=== PATIENT | female | born 1935 | race Caucasian/White ===

== ENCOUNTER 2017-01-24 17:40 | Emergency (ER) | payer MEDICARE ==
[2017-01-24] MEDS ORDERED: Ondansetron INJ* 2 MG/ML VIAL IV ONE (19:26)
--- NOTE | 2017-01-24 19:26 | UC ---
Abdominal Pain Female HPI - HPI Summary HPI Summary: Vomiting with loose stools since yesterday. Last BM yesterday. Dry heaves this evening. - History of Current Complaint Chief Complaint: UCGeneralIllness Stated Complaint: VOMITING/DIARRHEA Time Seen by Provider: 01/24/17 19:18 Hx Obtained From: Patient Hx Last Menstrual Period: n/a ?: No Onset/Duration: Sudden Onset, Lasting Days - 1, Worse Since - with headache Severity Initially: Mild Pain Intensity: 0 Character: Not Applicable Aggravating Factor(s): Food Alleviating Factor(s): Nothing Associated Signs and Symptoms: Positive: Decreased Appetite, Nausea, Vomiting Allergies/Adverse Reactions: Allergies Allergy/AdvReac Type Severity Reaction Status Date / Time Cephalexin Allergy Unknown Verified 01/24/17 18:35 Reaction Details Sulfa Drugs Allergy Unknown Verified 01/24/17 18:35 Reaction Details PMH/Surg Hx/FS Hx/Imm Hx Previously Healthy: No Cardiovascular History: Hypertension Respiratory History: COPD GI/ History: Gastroesophageal Reflux, Diverticulitis Cancer History: Breast Cancer - Surgical History Surgical History: Yes Surgery Procedure, Year, and Place: Cholecystectomy. Appendectomy. Hysterectomy. Left Breast Lumpectomy and Lymphectomy - Family History Known Family History: Positive: Cardiac Disease, Hypertension, Diabetes - Social History Occupation: Retired Lives: Alone Alcohol Use: None Substance Use Type: None Smoking Status (MU): Never Smoked Tobacco - Immunization History Most Recent Influenza Vaccination: 01/2017 Review of Systems Constitutional: Fatigue Gastrointestinal: Vomiting, Diarrhea, Nausea Is Patient Immunocompromised?: No All Other Systems Reviewed And Are Negative: Yes Physical Exam Triage Information Reviewed: Yes Appearance: No Pain Distress, Well-Nourished, Ill-Appearing Vital Signs: Initial Vital Signs Temp 98 F 01/24/17 18:30 Pulse 102 01/24/17 18:30 Resp 22 01/24/17 18:30 BP 129/61 01/24/17 18:30 Pulse Ox 97 01/24/17 18:30 Vital Signs Reviewed: Yes Eyes: Positive: Conjunctiva Clear ENT: Positive: Pharynx normal - dry Mucus membranes, TMs normal Neck exam: Normal Respiratory Exam: Normal Cardiovascular Exam: Normal Abdominal Exam: Normal Musculoskeletal Exam: Normal Neurological Exam: Normal Psychological Exam: Normal Skin Exam: Normal Re-Evaluation - Re-Evaluation First Eval Re-Evaluation Time: 20:53 Change: Improved - feeling better. Headache is gone. Nausea is better. Abd Pain Female Course/Dx - Differential Dx/Diagnosis Differential Diagnosis: Appendicitis, Diverticulitis, Irritable Bowel Syndrome Provider Diagnoses: Acute gastroenteritis. Moderate dehydration. Discharge - Discharge Plan Condition: Stable Disposition: HOME Prescriptions: Ondansetron ODT TAB* [Zofran 4 MG Odt TAB*] 4 mg PO Q6H PRN #14 tab.odt PRN Reason: Nausea/Vomiting Patient Education Materials: Gastroenteritis (ED), Ondansetron (By mouth)
[2017-01-24] MEDS ORDERED: NS 0.9% 1000 ML* 1,000 ML IV SCH (19:30)
[2017-01-24] MEDS ORDERED: Ondansetron INJ* 2 MG/ML VIAL IM ONE (20:56)
[2017-01-24] MEDS ORDERED: Ondansetron ODT TAB* 4 MG PO ONE (20:58)
[2017-01-24 21:02] VITALS: BP 142/62
[2017-01-24] MEDS ORDERED: Ondansetron ODT TAB* 4 MG ONE (21:05)
== END 2017-01-24 21:20 | disposition home or self-care (01) ==
LOC: UCCORT 17:40
DX: K52.9 Noninfective gastroenteritis and colitis, unspecified (principal); E86.0 Dehydration; I10 Essential (primary) hypertension; J44.9 Chronic obstructive pulmonary disease, unspecified; K21.9 Gastro-esophageal reflux disease without esophagitis; K57.92 Diverticulitis of intestine, part unspecified, without perforation or abscess without bleeding; Z85.3 Personal history of malignant neoplasm of breast; Z90.49 Acquired absence of other specified parts of digestive tract; Z90.710 Acquired absence of both cervix and uterus; Z88.1 Allergy status to other antibiotic agents; Z88.2 Allergy status to sulfonamides
CPT/HCPCS: 96361; 96374; 99212; A9270-GY; G0463; J2405

== ENCOUNTER 2018-02-28 12:52 | Emergency (ER) | payer MEDICARE ==
--- NOTE | 2018-02-28 13:41 | UC ---
Dizzy HPI HPI Summary: The patient is an 82-year-old female that presents here with a 2 day history of not feeling right. She states she has felt weak. He states she has felt fatigued. She denies any vertigo. She denies any syncope or near syncope. He denies any chest pain or shortness of breath. She denies any palpitations. She states that she has felt warm at times. She states that she is a nervous person and her symptoms have made her feel shaky. She's had no nausea vomiting or diarrhea. There has been no weight change. Has no UTI symptoms. She is denying hurting anywhere. - History Of Current Complaint Chief Complaint: UCGeneralIllness Stated Complaint: SHAKEY,DIZZINESS Hx Obtained From: Patient Hx Last Menstrual Period: n/a Onset/Duration: Gradual Onset, Lasting Days Timing: Constant Severity Initially: Moderate Severity Currently: Moderate Pain Intensity: 0 Pain Scale Used: 0-10 Numeric Character: Weak Aggravating Factor(s): Nothing Alleviating Factor(s): Nothing Associated Signs And Symptoms: Negative: Nausea, Vomiting, Diaphoresis, Tinnitus , Chest Pain, SOB, Palpitations, Unsteady Gait, Visual Changes, Decreased Oral Intake, Change In Medication, Change In Diet, OTC Medications - Allergies/Home Medications Allergies/Adverse Reactions: Allergies Allergy/AdvReac Type Severity Reaction Status Date / Time cephalexin Allergy Unknown Verified 02/28/18 13:02 Reaction Details Sulfa (Sulfonamide Allergy Unknown Verified 02/28/18 13:02 Antibiotics) Reaction Details Home Medications: Home Medications Amlodipine Besylate [Norvasc] 5 mg PO DAILY 02/28/18 [History Confirmed 02/28/18 ] PMH/Surg Hx/FS Hx/Imm Hx Previously Healthy: Yes Endocrine History: Dyslipidemia Cardiovascular History: Hypertension - Surgical History Surgical History: Yes Surgery Procedure, Year, and Place: Cholecystectomy. Appendectomy. Hysterectomy. Left Breast Lumpectomy and Lymphectomy - Family History Known Family History: Positive: Cardiac Disease, Hypertension, Diabetes - Social History Alcohol Use: None Substance Use Type: None Smoking Status (MU): Never Smoked Tobacco - Immunization History Most Recent Influenza Vaccination: 01/2017 Review of Systems All Other Systems Reviewed And Are Negative: Yes Constitutional: Positive: Fatigue Skin: Positive: Negative Eyes: Positive: Negative ENT: Positive: Negative Respiratory: Positive: Negative Cardiovascular: Positive: Negative Gastrointestinal: Positive: Negative Genitourinary: Positive: Negative Motor: Positive: Negative Neurovascular: Positive: Negative Musculoskeletal: Positive: Negative Neurological: Positive: Negative Psychological: Positive: Negative Physical Exam Triage Information Reviewed: Yes Appearance: Well-Appearing, No Pain Distress, Well-Nourished Vital Signs: Initial Vital Signs Temp 98.8 F 02/28/18 13:04 Pulse 73 02/28/18 13:04 Resp 18 02/28/18 13:04 BP 155/75 02/28/18 13:04 Pulse Ox 98 02/28/18 13:04 Vital Signs Reviewed: Yes Eyes: Positive: Conjunctiva Clear ENT: Positive: TMs normal. Negative: Hearing grossly normal - slightly STEBBINS, Nasal congestion, Nasal drainage, Tonsillar swelling, Tonsillar exudate, Trismus , Muffled voice, Hoarse voice, Uvula midline Dental: Negative: Abscess @ Neck: Positive: Supple, Nontender, No Lymphadenopathy Respiratory: Positive: Lungs clear, Normal breath sounds, No respiratory distress, No accessory muscle use Cardiovascular: Positive: RRR, No Murmur Abdominal Exam: Normal Musculoskeletal: Positive: ROM Intact, No Edema Neurological: Positive: Alert Psychological Exam: Normal Skin Exam: Normal Diagnostics - Laboratory Diagnostic Studies Completed/Ordered: Glucose -84. UA ++leuks - EKG Cardiac Rate: NL Cardiac Rhythm: Sinus: Normal ST Segment: Normal Summary of EKG Findings: LVH Dizzy Course/Dx - Course Course Of Treatment: not orthostatic - Differential Dx/Diagnosis Provider Diagnoses: UTI. fatigue Discharge - Sign-Out/Discharge Documenting (check all that apply): Patient Departure All imaging exams completed and their final reports reviewed: No Studies - Discharge Plan Condition: Stable Disposition: HOME Patient Education Materials: Fatigue (ED), Urinary Tract Infection in Women (ED ) Referrals: Lucie Griffiths MD [Primary Care Provider] - 2 Days (if not better) - Billing Disposition and Condition Condition: STABLE Disposition: Home
[2018-02-28 14:32] VITALS: BP 148/57
== END 2018-02-28 15:13 | disposition home or self-care (01) ==
LOC: UCCORT 12:52
DX: N39.0 Urinary tract infection, site not specified (principal); R53.1 Weakness; I10 Essential (primary) hypertension; Z88.1 Allergy status to other antibiotic agents; Z88.2 Allergy status to sulfonamides; Z79.899 Other long term (current) drug therapy
CPT/HCPCS: 81003; 87077; 87086; 93005; 99212; G0463

== ENCOUNTER 2018-08-02 11:07 | Emergency (ER) | payer MEDICARE ==
--- OUTSIDE RECORDS SUMMARY | 2018-08-02 11:19 | XMS REPORT | Continuity of Care Document ---
:1935 External Reference #:[id number] Author Name Himanshu Allison M.D. 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 Active Onset: 09/25/2017 Hyperlipidemia Lucie Griffiths MD Active Onset: 09/25/2017 Mild intermittent asthma Lucie Griffiths MD Active Onset: 09/25/2017 Essential hypertension Lucie Griffiths MD Active Onset: 09/25/2017 Anxiety state Lucie Griffiths MD Active Onset: 09/25/2017 Essential tremor Lucie Griffiths MD Active Onset: 07/08/2018 Urinary tract infectious disease Himanshu Allison M.D. Active Family History Date Family Member(s) Observation Comments General Cancer General Heart Disease Father due to heart disease () Mother due to both parents () deeased Mother due to Colon Cancer () - age 73 Children 2 Siblings 7 First Brother due to Prostate Cancer () - early 60's Second Brother due to prostate cancer () - early 60's First Sister due to 1 sister alive () First Sister Lung Cancer Social History Type Date Description Comments Sex Unknown Lives With Alone Diet Healthy, Well Balanced Occupation Retired ADL's/IADL's Independent with all ADL's Tobacco Use Start: Unknown Never Smoked Cigarettes ETOH Use Denies alcohol use Tobacco Use Start: Unknown Patient denies history of smoking Recreational Drug Use Never Used Drugs Smoking Status Reviewed: 07/22/18 Patient denies history of smoking Allergies, Adverse Reactions, Alerts Date Description Reaction Status Severity Comments 07/19/2014 Sulfa Drugs Active 08/04/2014 Cephalexin Active 07/19/2014 NKDA Inactive Medications Medication Date Status Form Strength Qnty SIG Indications Ordering Provider Ampicillin 07/23/19 Active Capsules 500mg 10cap 1 by mouth Keegan, 19 s twice a , M.DJuan R Propranolol HCL 06/26/19 Active Tablets 10mg 60tab take 1 G25.0 Aye, 19 s tablet MD Lucie twice a day Sertraline HCL 03/17/20 Active Tablets 25mg 90tab 1 by mouth F41.9 Aye, 18 s daily. MD Lucie Proair HFA 03/27/20 Active Aerosol 108(90Bas 25.5g 1-2 Aye, 17 e) m inhalation MD Lucie mcg/Act s every 4 hours as needed Nebulizer 08/14/19 Active Kit 1unit nebulizer J45.41 Aye, Compressor/Dual 17 s every 6 MD Lucie filter/7' hours as Tubing/Aerosol needed for T/Mthpiece shortness of breath Acetaminophen 10/23/19 Active Tablets 500mg 180ta 2 by mouth Aye, Extra Strength 16 bs every 6 MD Lucie hours three times a day Pravastatin 10/23/19 Active Tablets 40mg 90tab 1 by mouth Gagen, Sodium 16 s every Adenike evening e, MS, 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, CNM Losartan 10/23/19 Active Tablets 100mg 90tab take 1 Gagen, Potassium 16 s tablet by Adenike mouth once e, MS, daily 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, CNM Vitamin D-3 Active Capsules 1000Unit 2 tabs qd Unknown 00 Asmanex Active Aerosol 220mcg/In 3unit 1 puff Aye, Twisthaler 60 00 h s twice MD Lucie Metered Doses daily Amlodipine Active Tablets 5mg 90tab 1 by mouth Gagen, Besylate 00 s every day Adenike e, MS, 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 19 day Levofloxacin 06/08/19 Hx Tablets 250mg 3tabs Take one Aye, 19 - tablet a MD Lucie 06/08/19 day 19 Citalopram 03/17/20 Hx Tablets 10mg 30tab 1 by mouth F41.9 Aye, Hydrobromide 18 - s every day MD Lucie 03/24/20 18 Amoxicillin 03/03/20 Hx Tablets 500mg 14tab 1 po bid N39.0 Aye, 18 - s MD Lucie 03/10/20 18 Pulmicort 02/02/20 Hx Aerosol 180mcg/Ac 1unit Use 2 Gagen, Flexhaler 18 - t s puffs Adenike 02/02/20 inhaled e, MS, 18 twice a 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, day CNM Fluoxetine HCL 01/29/20 Hx Tablets 20mg 90tab 1 tab by Aye, (PMDD) 18 - s mouth MD Lucie 03/17/20 every 18 night Fluoxetine HCL 10/13/19 Hx Capsules 20mg 90cap 1 tab by Aye, 18 - s mouth MD Lucie 01/29/20 every day 18 Fluoxetine HCL 09/26/19 Hx Capsules 40mg 90cap 1 by mouth Aye, 18 - s every day MD Lucie 10/13/19 18 Triamcinolone 01/15/20 Hx Cream 0.5% 30gm apply to Aye, Acetonide 17 - affected MD Lucie Unknown area under her breasts and groin area twice daily Fluconazole 01/07/20 Hx Tablets 150mg 2tabs 1 by mouth B37.3 Smiley, 17 - daily x 1 Eknji, Unknown day, M.D. repeat on second day if symptoms have not improved Lidocaine 01/07/20 Hx Cream 3-0.5% 21gm apply K64.9 Smiley, HCL/Hydrocortis 17 - twice a Kenji, one Acetate 01/07/20 day to M.D. 17 hemorrhoid s Hydrocortisone 01/07/20 Hx Cream 1% 60Gra Apply to Smiley, Acetate 17 - ms hemorrhoid Kenji, 09/26/19 s bid prn M.D. 18 Tizanidine HCL 11/22/19 Hx Capsules 2mg 30cap 1 cap by Aye, 17 - s mouth at MD Lucie Unknown bedtime for pain as needed Albuterol 08/15/19 Hx Nebulizer (2.5mg/3M 75ml use with Aye, Sulfate 17 - L) 0.083% nebulizer MD Lucie 06/04/19 every 6 19 hours as needed for shortness of breath Prednisone 08/14/19 Hx Tablets 20mg 10tab 2 tabs (40 Aye, 17 - s mg) daily MD Lucie Unknown for 5 days for shortness of breath/whe ezing Amoxicillin 08/05/19 Hx Capsules 500mg 21cap 1 by mouth J06.9 Smiley, 17 - s three Kenji, Unknown times a M.D. day x 7 days Acidophilus 08/05/19 Hx Tablets 90tab 1 by mouth J06.9 Smiley, Probiotic 17 - s every day Kenji, Unknown x 7 days M.D. Robitussin 08/05/19 Hx Liquid 20-400mg/ 237ml as J06.9 Smiley, Cough & Chest 17 - 20ML directed Kenji, Congestion DM Unknown M.D. Adult Saline Nasal 08/05/19 Hx Solution 0.65% 135ml 2 sprays J06.9 Smiley, [place] 17 - every 2 Kenji, Unknown hours as M.D. needed Diclofenac 06/19/19 Hx Gel 1% 100gm 2 g Aye, Sodium 17 - topical on MD Lucie Unknown back of neck twice a day as needed Clobetasol 06/06/19 Hx Cream 0.05% 90gm apply to Aye, Propionate E 17 - affected MD Lucie 09/26/19 area under 18 breasts and groin twice daily Famotidine 01/23/20 Hx Tablets 20mg 60tab take 1 Aye, 16 - s tablet by MD Lucie 01/23/20 mouth 16 twice a day Triamcinolone 01/23/20 Hx Cream 0.5% 30gm apply to Aye, Acetonide 16 - affected MD Lucie Unknown area under her breasts and groin area twice daily Nystatin 01/23/20 Hx Powder [id number] 60gm apply B35.9 Aye, 16 - t/GM powder to MD Lucie 09/26/19 under the 18 breast and thighs twice a day until rash resolves Cipro 01/23/20 Hx Tablets 500mg 6tabs 1 tab by Aye, 16 - mouth MD Lucie Unknown twice daily for 3 days Metoprolol 10/23/19 Hx Tablets ER 25mg 90tab 1 by mouth Aye, Succinate ER 16 - 24HR s every day MD Lucie 06/04/19 19 Hydrocodone-Wil 08/01/19 Hx Tablets 5-325mg 56tab 1 by mouth [place], taminophen 15 - s every 4 Rodriguez, 10/23/19 hours as M.D. 16 needed pain Naproxen 08/01/19 Hx Tablets 375mg 60tab 1 by mouth [place], 15 - s twice a Rodriguez, 10/23/19 day with M.D. 16 food Vicodin 07/20/19 Hx Tablets 5-300mg 14tab 1 every 6 Neftaly, 15 - s hours Wong Gomez, 08/01/19 DO 15 Triamcinolone Hx Ointment 0.5% Unknown Acetonide - 10/23/19 16 Ketoconazole Hx Cream 2% Unknown - 10/23/19 16 Albuterol Hx Nebulizer (2.5mg/3M Unknown Sulfate 00 - L) 0.083% Unknown Losartan Hx Tablets 100-12.5m Unknown Potassium/[place] 00 - g chlorothiazide 10/23/19 16 Ventolin HFA Hx Aerosol 108(90Bas 24gm 1-2 puffs Aye 00 - e) inhaled MD Lucie 03/27/20 mcg/Act every 17 4-6hrs as needed Alendronate Hx Tablets 70mg 12tab 1 by mouth Aye, Sodium 00 - s every week MD Lucie 06/26/19 19 Anastrozole Hx Tablets 1mg Unknown 10/23/19 16 Simvastatin Hx Tablets 40mg Unknown 10/23/19 16 Metronidazole Hx Tablets 500mg take 1 Unknown 00 - tablet by Unknown mouth three times a day Ciprofloxacin Hx Tablets 500mg take 1 Unknown HCL 00 - tablet by Unknown mouth twice a day Fluoxetine HCL Hx Capsules 20mg 90cap 1 by mouth Aye, 00 - s every day MD Lucie 09/26/19 18 Nitrofurantoin Hx Capsules 100mg take 1 Unknown Monohydrate/Mac 00 - capsule by rocrystals 06/04/19 mouth 19 twice a day Nitrofurantoin Hx Capsules 100mg take 1 Unknown Monohydrate/Mac 00 - capsule by rocrystals 03/17/20 mouth 18 twice a day Amoxicillin Hx Capsules 500mg take 1 Unknown 00 - capsule by 06/26/19 mouth 19 every 8 hours Immunizations CPT Code Status Date Vaccine Reaction Lot # [id number] Given 01/29/2018 Influenza High Dose [id number] Given 01/06/2017 Influenza Virus Vaccine Quadrivalent Iiv4 none [id number] Split Preser Free Id [id number] Given 01/23/2016 Influenza Vaccine (Fluzone) Age 3 And [id number] Older Vital Signs Date Vital Result Comment 07/22/2018 12:30pm BP Systolic 128 mmHg BP Diastolic 80 mmHg Body Temperature 97.7 F Heart Rate 62 /min Respiratory Rate 16 /min O2 % BldC Oximetry 9 % Pain Level 0 07/08/2018 1:32pm BP Systolic 132 mmHg BP Diastolic 64 mmHg Body Temperature 98.2 F Heart Rate 62 /min Respiratory Rate 16 /min Height 60.5 inches 5'0.50" Weight 179.00 lb BMI (Body Mass Index) 34.4 kg/m2 BSA (Body Surface Area) 1.79 m2 [place] body weight in kilograms 47 kg O2 % BldC Oximetry 97 % Pain Level 0 06/25/2018 10:57am BP Systolic Sitting Right Arm 140 mmHg BP Diastolic Sitting Right Arm 62 mmHg Body Temperature 98.2 F oral Heart Rate 81 /min reg Respiratory Rate 18 /min Height 60.5 inches 5'0.50" Weight 180.00 lb BMI (Body Mass Index) 34.6 kg/m2 BSA (Body Surface Area) 1.80 m2 [place] body weight in kilograms 47 kg O2 % BldC Oximetry 96 % ra 06/04/2018 2:59pm BP Systolic Sitting Right Arm 130 mmHg BP Diastolic Sitting Right Arm 80 mmHg BP Systolic Sitting Left Arm 144 mmHg manual BP Diastolic Sitting Left Arm 74 mmHg manual BP Systolic Lying Down Resting Right Arm 150 mmHg manual BP Diastolic Lying Down Resting Right Arm 78 mmHg manual BP Systolic Standing Resting Right Arm 134 mmHg left manual BP Diastolic Standing Resting Right Arm 76 mmHg left manual Body Temperature 98.9 F Heart Rate 80 /min Respiratory Rate 24 /min Height 60.5 inches 5'0.50" Weight 179.00 lb BMI (Body Mass Index) 34.4 kg/m2 BSA (Body Surface Area) 1.79 m2 [place] body weight in kilograms 47 kg O2 % BldC Oximetry 97 % ra 04/14/2018 11:00am BP Systolic Sitting Right Arm 138 mmHg BP Diastolic Sitting Right Arm 70 mmHg Body Temperature 97.9 F Heart Rate 70 /min Respiratory Rate 18 /min Height 60.5 inches 5'0.50" Weight 188.00 lb BMI (Body Mass Index) 36.1 kg/m2 BSA (Body Surface Area) 1.83 m2 [place] body weight in kilograms 47 kg 03/17/2018 10:35am BP Systolic Sitting Right Arm 151 mmHg BP Diastolic Sitting Right Arm 81 mmHg Body Temperature 98.2 F Heart Rate 80 /min Height 60.5 inches 5'0.50" Weight 185.00 lb BMI (Body Mass Index) 35.5 kg/m2 BSA (Body Surface Area) 1.82 m2 [place] body weight in kilograms 47 kg O2 % BldC Oximetry 98 % 03/12/2018 1:40pm BP Systolic Sitting Right Arm 118 mmHg BP Diastolic Sitting Right Arm 60 mmHg Body Temperature 99.8 F Heart Rate 71 /min reg Respiratory Rate 24 /min Height 60.5 inches 5'0.50" Weight 187.00 lb BMI (Body Mass Index) 35.9 kg/m2 BSA (Body Surface Area) 1.83 m2 [place] body weight in kilograms 47 kg O2 % BldC Oximetry 96 % ra 03/03/2018 1:51pm BP Systolic Sitting Right Arm 132 mmHg BP Diastolic Sitting Right Arm 70 mmHg Body Temperature 98.1 F Heart Rate 64 /min reg Respiratory Rate 18 /min Height 60.5 inches 5'0.50" Weight 187.00 lb BMI (Body Mass Index) 35.9 kg/m2 BSA (Body Surface Area) 1.83 m2 [place] body weight in kilograms 47 kg O2 % BldC Oximetry 97 % ra 01/28/2018 10:50am BP Systolic 140 mmHg recheck 137/65 BP Diastolic 53 mmHg recheck 137/65 Body Temperature 96.8 F Heart Rate 71 /min Respiratory Rate 18 /min Height 60.5 inches 5'0.50" Weight 192.38 lb BMI (Body Mass Index) 36.9 kg/m2 BSA (Body Surface Area) 1.85 m2 [place] body weight in kilograms 47 kg O2 % BldC Oximetry 97 % 11/06/2017 11:39am BP Systolic Sitting Right Arm 145 mmHg Zelda 127/74 BP Diastolic Sitting Right Arm 73 mmHg Zelda 127/74 Body Temperature 97.3 F Heart Rate 64 /min Respiratory Rate 24 /min Height 60.5 inches 5'0.50" Weight 193.00 lb BMI (Body Mass Index) 37.1 kg/m2 BSA (Body Surface Area) 1.85 m2 [place] body weight in kilograms 47 kg O2 % BldC Oximetry 96 % 09/25/2017 11:20am BP Systolic 122 mmHg BP Diastolic 80 mmHg Body Temperature 99.2 F Heart Rate 81 /min Respiratory Rate 20 /min Height 60.5 inches 5'0.50" Weight 193.25 lb BMI (Body Mass Index) 37.1 kg/m2 BSA (Body Surface Area) 1.85 m2 [place] body weight in kilograms 47 kg O2 % BldC Oximetry 95 % 03/27/2017 11:23am BP Systolic 159 mmHg recheck 138/75 BP Diastolic 79 mmHg recheck 138/75 Heart Rate 90 /min Respiratory Rate 14 /min Height 60.5 inches 5'0.50" Weight 191.25 lb BMI (Body Mass Index) 36.7 kg/m2 BSA (Body Surface Area) 1.84 m2 [place] body weight in kilograms 47 kg O2 % BldC Oximetry 97 % 03/17/2017 1:52pm BP Systolic 157 mmHg BP Diastolic 73 mmHg Body Temperature 99.1 F Heart Rate 77 /min Respiratory Rate 14 /min Height 60.5 inches 5'0.50" [place] body weight in kilograms 47 kg O2 % BldC Oximetry 97 % 01/22/2017 11:00am BP Systolic Sitting Right Arm 144 mmHg BP Diastolic Sitting Right Arm 74 mmHg Body Temperature 99.6 F Heart Rate 84 /min Respiratory Rate 16 /min Height 60.5 inches 5'0.50" Weight 199.00 lb BMI (Body Mass Index) 38.2 kg/m2 BSA (Body Surface Area) 1.87 m2 [place] body weight in kilograms 47 kg 01/06/2017 12:52pm BP Systolic 139 mmHg BP Diastolic 71 mmHg Heart Rate 79 /min Respiratory Rate 18 /min Height 60.5 inches 5'0.50" Weight 207.38 lb BMI (Body Mass Index) 39.8 kg/m2 BSA (Body Surface Area) 1.91 m2 [place] body weight in kilograms 47 kg O2 % BldC Oximetry 96 % 11/21/2016 10:29am BP Systolic Sitting Left Arm 152 mmHg BP Diastolic Sitting Left Arm 70 mmHg Heart Rate 71 /min Respiratory Rate 20 /min Height 60.5 inches 5'0.50" Weight 203.12 lb BMI (Body Mass Index) 39.0 kg/m2 BSA (Body Surface Area) 1.89 m2 [place] body weight in kilograms 47 kg 08/13/2016 10:53am BP Systolic 133 mmHg BP Diastolic 72 mmHg Body Temperature 97.1 F Heart Rate 82 /min Height 60.5 inches 5'0.50" Weight 204.00 lb BMI (Body Mass Index) 39.2 kg/m2 BSA (Body Surface Area) 1.89 m2 O2 % BldC Oximetry 99 % 08/04/2016 1:40pm BP Systolic 118 mmHg BP Diastolic 78 mmHg Body Temperature 99.0 F Heart Rate 78 /min Height 60.5 inches 5'0.50" Weight 201.00 lb BMI (Body Mass Index) 38.6 kg/m2 BSA (Body Surface Area) 1.88 m2 O2 % BldC Oximetry 96 % 06/18/2016 11:19am BP Systolic 150 mmHg BP Diastolic 72 mmHg Heart Rate 72 /min Height 60.5 inches 5'0.50" Weight 203.00 lb BMI (Body Mass Index) 39.0 kg/m2 BSA (Body Surface Area) 1.89 m2 O2 % BldC Oximetry 96 % 01/23/2016 11:26am BP Systolic Sitting Right Arm 134 mmHg BP Diastolic Sitting Right Arm 76 mmHg Heart Rate 68 /min Height 60.5 inches 5'0.50" Weight 207.38 lb BMI (Body Mass Index) 39.8 kg/m2 BSA (Body Surface Area) 1.91 m2 O2 % BldC Oximetry 98 % 10/23/2015 11:02am BP Systolic 138 mmHg BP Diastolic 76 mmHg Heart Rate 72 /min Height 60.5 inches 5'0.50" Weight 208.00 lb BMI (Body Mass Index) 39.9 kg/m2 BSA (Body Surface Area) 1.91 m2 O2 % BldC Oximetry 98 % 07/19/2014 2:51pm BP Systolic Sitting Right Arm 145 mmHg BP Diastolic Sitting Right Arm 78 mmHg Heart Rate 67 /min Height 60.5 inches 5'0.50" Weight 206.00 lb BMI (Body Mass Index) 39.6 kg/m2 BSA (Body Surface Area) 1.90 m2 Results Test Date Facility Test Result H/L Range Note Urine Culture 07/22/2018 [facility] Urine ESCHERICHIA COLI Abnormal [address] [place] [address] [phone] Quantity 10,000 - 50,000 <SEE NOTE> 2 Urine Culture STREP. AGALACTIA <SEE NOTE> Abnormal 3 Quantity 10,000 - 50,000 <SEE NOTE> 4 Recommended Therapy: PENICILLIN OR AM <SEE NOTE> 5 Escherichia Coli 07/22/2018 [facility] Nitrofurantoin <=16 [address] [place] [address] [phone] Trimethoprim/Sulfamethoxazole >=320 R Ampicillin 4 S Cefazolin <=4 S Ampicillin/Sulbactam <=2 S Ciprofloxacin >=4 R Piperacillin/Tazobactam <=4 S Ceftazidime <=1 S Ceftriaxone <=1 S Cefepime <=1 S Levofloxacin >=8 R Imipenem <=0.25 S Gentamicin <=1 S Tobramycin <=1 S Strep. Agalactiae (Beta GRP 07/22/2018 [facility] Penicillin G <=0.12 S B) [address] [place] [address] [phone] Tetracycline >=16 R Ampicillin <=0.25 S Moxifloxacin 0.5 S Levofloxacin 1 S Vancomycin <=0.5 S Urine Culture 07/08/2018 [facility] Urine Culture STREP. Abnormal 6 [address] [place]ACT[place] <[place] [address] NOTE> [phone] Quantity 50,000 - 100,000 <SEE NOTE> 7 Recommended Therapy: PENICILLIN OR AM <SEE NOTE> 8 [id number] 07/08/2018 [facility] Penicillin G <=0.12 [address] [place], [place] [id number] [phone] Tetracycline >=16 R Ampicillin <=0.25 S Moxifloxacin 0.5 S Levofloxacin 0.5 S Vancomycin <=0.5 S Urine Dipstick 07/08/2018 [facility] Ua Color Yellow Yellow Ua Clarity Clear Clear Ua Leuko 500 High Negative Ua Nitrite Negative Negative Ua Urobilinogen 0.2 0.2 - 1.0 E.U./dL Ua Protein Negative Negative Ua PH 6.0 Low 6.5-7.5 Ua Blood Negative Negative Ua Specific [place] 1.015 1.010-1.030 Ua Ketones Negative Negative Ua Bilirubin Negative Negative Ua Glucose Negative Negative Ua RFX Micro & Culture 06/25/2018 [facility] Urine Color YELLOW Yellow 9 [address] [place] [address] [phone] Urine Clarity CLEAR Clear Urine Glucose - Dipstick NEGATIVE mg/dL Negative Urine Bilirubin - Dipstick NEGATIVE Negative Urine Ketone NEGATIVE mg/dL Negative Urine Specific [place] <=1.005 Low 1.010-1.030 Urine Blood NEGATIVE Negative Urine PH 6.5 N 6.5-7.5 Urine Protein - Dipstick NEGATIVE mg/dL Negative Urine Urobilinogen - Dipstick 0.2 E.U./dL N 0.2-1.0 Urine Nitrite - Dipstick NEGATIVE Negative Urine Leuk Esterase LARGE Abnormal Negative Urine RBC NONE SEEN rbc/hpf 0-2 Urine WBC 2-5 wbc/hpf 0-7 Urine Epithelial Cells FEW /lpf None Seen Urine Bacteria FEW None Seen Source: URINE, CLEAN CAT <SEE NOTE> 10 Urine Dipstick 06/25/2018 [facility] Ua Color yellow Yellow Ua Clarity clear Clear Ua Leuko 3+ High Negative Ua Nitrite negative Negative Ua Urobilinogen negative Low 0.2 - 1.0 E.U./dL Ua Protein negative Negative Ua PH 6.5 6.5-7.5 Ua Blood negative Negative Ua Specific [place] 1.010 1.010-1.030 Ua Ketones negative Negative Ua Bilirubin negative Negative Ua Glucose negative Negative Co2 SerPl-sCnc 06/18/2018 N2N/CCD Import Co2 SerPl-sCnc 25 21-32 Serum or plasma 06/18/2018 N2N/CCD Import Serum or plasma 7 Low 8-16 anion gap anion gap Serum or plasma 06/18/2018 N2N/CCD Import Serum or plasma 8.8 8.5-10.1 calcium measurement calcium measurement (mass/volume) (mass/volume) Serum or plasma 06/18/2018 N2N/CCD Import Serum or plasma 7.5 6.4-8.2 protein measurement protein measurement (mass/volume) (mass/volume) Serum or plasma 06/18/2018 N2N/CCD Import Serum or plasma 3.6 3.4-5.0 albumin measurement albumin measurement (mass/volume) (mass/volume) Serum globulin 06/18/2018 N2N/CCD Import Serum globulin 3.9 1.9-4.3 measurement by measurement by calculation (mass/vo calculation (mass/volume) Serum or plasma 06/18/2018 N2N/CCD Import Serum or plasma 0.9 albumin/globulin albumin/globulin mass ratio mass ratio Serum or plasma 06/18/2018 N2N/CCD Import Serum or plasma 0.6 0.2-1.0 total bilirubin total bilirubin measurement (mass/ measurement (mass/volume) Serum or plasma 06/18/2018 N2N/CCD Import Serum or plasma 14 Low 15-37 aspartate aspartate aminotransferase aminotransferase measure measurement (enzymatic activity/volume) Serum or plasma 06/18/2018 N2N/CCD Import Serum or plasma 17 12-78 alanine alanine aminotransferase aminotransferase measureme measurement (enzymatic activity/volume) Serum or plasma 06/18/2018 N2N/CCD Import Serum or plasma 76 45-117 alkaline phosphatase alkaline measurement ( phosphatase measurement (enzymatic activity/volume) Serum or plasma 06/18/2018 N2N/CCD Import Serum or plasma <0.015 troponin i.cardiac troponin i.cardiac measurement (ma measurement (mass/volume) Ua RFX Micro & 06/18/2018 [facility] Urine Color YELLOW Yellow 11 Culture II [address] [place] [address] [phone] Urine Clarity CLEAR Clear Urine Glucose - Dipstick NEGATIVE mg/dL Negative Urine Bilirubin - Dipstick NEGATIVE Negative Urine Ketone NEGATIVE mg/dL Negative Urine Specific [place] 1.010 N 1.010-1.030 Urine Blood NEGATIVE Negative Urine PH 6.0 Low 6.5-7.5 Urine Protein - Dipstick NEGATIVE mg/dL Negative Urine Urobilinogen - Dipstick 0.2 E.U./dL N 0.2-1.0 Urine Nitrite - Dipstick NEGATIVE Negative Urine Leuk Esterase NEGATIVE Negative Source: URINE, CLEAN CAT <SEE NOTE> 12 Urine color 06/18/2018 N2N/CCD Import Urine color Yellow Yellow determination determination Urine appearance 06/18/2018 N2N/CCD Import Urine appearance Clear Clear determination determination Urine glucose 06/18/2018 N2N/CCD Import Urine glucose Negative Negative measurement by measurement by automated test automated test strip strip (mass/volume) Urine total 06/18/2018 N2N/CCD Import Urine total Negative Negative bilirubin bilirubin detection by detection by automated test automated test strip Urine ketones 06/18/2018 N2N/CCD Import Urine ketones Negative Negative measurement by measurement by automated test automated test strip strip (mass/volume) Specific gravity 06/18/2018 N2N/CCD Import Specific gravity 1.010 1.010- 1.030 of Urine by of Urine by Automated test Automated test strip strip Urine hemoglobin 06/18/2018 N2N/CCD Import Urine hemoglobin Negative Negative detection by detection by automated test automated test strip strip Urine pH 06/18/2018 N2N/CCD Import Urine pH 6.0 Low 6.5-7.5 measurement by measurement by automated test automated test strip strip Urine protein 06/18/2018 N2N/CCD Import Urine protein Negative Negative measurement by measurement by automated test automated test strip strip (mass/volume) Urine 06/18/2018 N2N/CCD Import Urine 0.2 0.2-1.0 urobilinogen urobilinogen measurement measurement (units/volume) by (units/volume) by t test strip Urine nitrite 06/18/2018 N2N/CCD Import Urine nitrite Negative Negative detection by detection by automated test automated test strip strip Urine leukocyte 06/18/2018 N2N/CCD Import Urine leukocyte Negative Negative esterase esterase detection by detection by automated te automated test strip Automated blood 06/18/2018 N2N/CCD Import Automated blood 13.0 High 3.1- 10.7 leukocyte count leukocyte count (number/volume) (number/volume) Blood 06/18/2018 N2N/CCD Import Blood 4.77 3.90-5.40 erythrocytes erythrocytes automated count automated count (number/volume) (number/volume) Blood hemoglobin 06/18/2018 N2N/CCD Import Blood hemoglobin 13.3 11.6- 15.8 measurement measurement (mass/volume) (mass/volume) Hct VFr Bld Auto 06/18/2018 N2N/CCD Import Hct VFr Bld Auto 41.0 36.0- 46.1 Automated 06/18/2018 N2N/CCD Import Automated 86.0 80.9-99.0 erythrocyte mean erythrocyte mean corpuscular corpuscular volume (MCV volume (MCV) measurement Automated 06/18/2018 N2N/CCD Import Automated 27.9 25.9-32.7 erythrocyte mean erythrocyte mean corpuscular corpuscular hemoglobin hemoglobin (mass per erythrocyte) Automated 06/18/2018 N2N/CCD Import Automated 32.4 30.8-34.3 erythrocyte mean erythrocyte mean corpuscular corpuscular hemoglobin hemoglobin concentration measurement (mass/volume) Automated blood 06/18/2018 N2N/CCD Import Automated blood 330 155-360 platelet count platelet count Automated 06/18/2018 N2N/CCD Import Automated 44.4 36-47 erythrocyte erythrocyte distribution distribution width width Automated 06/18/2018 N2N/CCD Import Automated 14.6 High 11.7-14.4 erythrocyte erythrocyte distribution distribution width ratio width ratio Automated blood 06/18/2018 N2N/CCD Import Automated blood 9.7 8.9-12.4 platelet mean platelet mean volume volume measurement measurement Automated blood 06/18/2018 N2N/CCD Import Automated blood 74.6 High 40.4- 72.8 neutrophils/100 neutrophils/100 leukocytes leukocytes Automated blood 06/18/2018 N2N/CCD Import Automated blood 15.6 Low 20.0- 42.0 lymphocytes/100 lymphocytes/100 leukocytes leukocytes Automated 06/18/2018 N2N/CCD Import Automated 8.9 4.3-13.2 monocyte % monocyte % Automated 06/18/2018 N2N/CCD Import Automated 0.5 0.0-6.6 eosinophil % eosinophil % Automated 06/18/2018 N2N/CCD Import Automated 0.4 0.0-1.1 basophil % basophil % Serum or plasma 06/18/2018 N2N/CCD Import Serum or plasma 101 98-107 chloride chloride measurement measurement Serum or plasma 06/18/2018 N2N/CCD Import Serum or plasma 3.8 3.5-5.1 potassium potassium measurement measurement Sodium SerPl-sCnc 06/18/2018 N2N/CCD Import Sodium SerPl-sCnc 133 Low 136 -145 Serum or plasma 06/18/2018 N2N/CCD Import Serum or plasma 11.1 urea urea nitrogen/creatini nitrogen/creatini ne mass rati ne mass ratio GFR/Bsa 06/18/2018 N2N/CCD Import GFR/Bsa >60 >60 pred.black SerPl pred.black SerPl MDRD-ArVRat MDRD-ArVRat Estimated 06/18/2018 N2N/CCD Import Estimated >60 >60 glomerular glomerular filtration rate filtration rate (GFR) non-Afr (GFR) non- Serum or plasma 06/18/2018 N2N/CCD Import Serum or plasma 0.9 0.6-1.3 creatinine creatinine measurement measurement (mass/volum (mass/volume) Absolute 06/18/2018 N2N/CCD Import Absolute 9.67 High 1.8-7.0 neutrophil count neutrophil count Automated blood 06/18/2018 N2N/CCD Import Automated blood 2.02 1.0-4.0 lymphocyte count lymphocyte count (number/volume) (number/volume) Blood monocytes 06/18/2018 N2N/CCD Import Blood monocytes 1.16 High 0.3- 0.9 automated count automated count (number/volume) (number/volume) Automated blood 06/18/2018 N2N/CCD Import Automated blood 0.07 0.0-0.5 eosinophil count eosinophil count Automated blood 06/18/2018 N2N/CCD Import Automated blood 0.05 0.0-0.1 basophil count basophil count (number/volume) (number/volume) Serum or plasma 06/18/2018 N2N/CCD Import Serum or plasma 10 7-18 urea nitrogen urea nitrogen measurement measurement (mass/vo (mass/volume) Serum or plasma 06/18/2018 N2N/CCD Import Serum or plasma 95 74-106 glucose glucose measurement measurement (mass/volume) (mass/volume) Unloinc 06/18/2018 N2N/CCD Import Unloin . Comprehensive 06/03/2018 [facility] Glucose 111 mg/dL High 74-106 13 Metabolic Panel [address] [place] [address] [phone] BUN 15 mg/dL N 7-18 Creatinine 1.1 mg/dL N 0.6-1.3 Glom Filtration Rate, Estimate 51 mL/min >60 If >60 mL/min >60 14 BUN/Creat 13.6 ratio Sodium 138 mmol/L N 136-145 Potassium 4.1 mmol/L N 3.5-5.1 Chloride 104 mmol/L N 98-107 Carbon Dioxide 26 mmol/L N 21-32 Anion Gap 8 mEq/L N 8-16 Calcium 8.9 mg/dL N 8.5-10.1 Total Protein 7.3 g/dL N 6.4-8.2 Albumin 3.5 g/dL N 3.4-5.0 Globulin 3.8 g/dL N 1.9-4.3 Alb/Glob 0.9 ratio Bilirubin,Total 0.4 mg/dL N 0.2-1.0 Sgot/Ast 12 U/L Low 15-37 15 SGPT/Alt 16 U/L N 12-78 Alkaline Phosphatase 82 U/L N 45-117 CBC W/Automated 06/03/2018 [facility] White Blood 11.7 K/uL High 3.1-10.[address] [place] [address] [phone] Red Blood Count 4.50 M/uL N 3.90-5.40 Hemoglobin 12.4 gm/dL N 11.6-15.8 Hematocrit 38.8 % N 36.0-46.1 Mean Cell Volume 86.2 fl N 80.9-99.0 Mean Corpuscular HGB 27.6 pg N 25.9-32.7 Mean Corpuscular HGB Conc 32.0 g/dL N 30.8-34.3 Platelet Count 332 K/uL N 155-360 Red Cell Distri Width SD 44.8 fl N 36-47 Red Cell Distri Width %CV 14.5 % High 11.7-14.4 Mean Platelet Volume 10.2 fL N 8.9-12.4 Neut% 78.5 % High 40.4-72.8 Lymph % 12.9 % Low 20.0-42.0 [place] % 7.4 % N 4.3-13.2 Eo% 0.9 % N 0.0-6.6 Bas% 0.3 % N 0.0-1.1 Neut# 9.20 K/uL High 1.8-7.0 Lymph # 1.51 K/uL N 1.0-4.0 [place] # 0.87 K/uL N 0.3-0.9 Eos # 0.11 K/uL N 0.0-0.5 Baso # 0.04 K/uL N 0.0-0.1 Amorphous 06/03/2018 N2N/CCD Import Amorphous Small Negative sediment sediment detection in detection in urine sediment by urine sediment by light microscopy Bacteria 06/03/2018 N2N/CCD Import Bacteria Moderate High None Seen detection in detection in urine sediment by urine sediment by light micr light microscopy Epithelial cells 06/03/2018 N2N/CCD Import Epithelial cells Many None Seen detection in detection in urine sediment by urine sediment by li light microscopy Urine sediment 06/03/2018 N2N/CCD Import Urine sediment 2-5 0-7 leukocyte count leukocyte count by microscopy by microscopy (numb (number/high power field) Automated urine 06/03/2018 N2N/CCD Import Automated urine None Seen 0-2 sediment sediment erythrocyte count erythrocyte count by micr by microscopy (number/high power field) Blood 06/03/2018 N2N/CCD Import Blood 0-1+ polychromasia polychromasia detection by detection by light microscopy light microscopy Slide Review 06/03/2018 [facility] Slide Review DIFF ORDERED [address] [place], [place] [address] [phone] Differential-WBC 06/03/2018 [facility] Total Cells 100 #CELLS Confirm [address] [place] [address] [phone] Band% 1 % N 0-8 Neutrophils% 74 % High 33-73 Lymph% 20 % N 20-42 Atypical Lymph% 1 % N 0-7 Monocyte% 3 % N 0-10 Eosinophil% 1 % N 0-5 Platelet Estimate NORMAL Polychromasia 0-1+ Ua RFX Micro & Culture 06/03/2018 [facility] Urine Color YELLOW Yellow II [address] [place] [address] [phone] Urine Clarity SL CLOUDY Clear Urine Glucose - Dipstick NEGATIVE mg/dL Negative Urine Bilirubin - Dipstick NEGATIVE Negative Urine Ketone NEGATIVE mg/dL Negative Urine Specific [place] 1.010 N 1.010-1.030 Urine Blood NEGATIVE Negative Urine PH 7.0 N 6.5-7.5 Urine Protein - Dipstick NEGATIVE mg/dL Negative Urine Urobilinogen - Dipstick 0.2 E.U./dL N 0.2-1.0 Urine Nitrite - Dipstick NEGATIVE Negative Urine Leuk Esterase LARGE Abnormal Negative Urine RBC NONE SEEN rbc/hpf 0-2 Urine WBC 2-5 wbc/hpf 0-7 Urine Epithelial Cells MANY /lpf None Seen 16 Urine Bacteria MODERATE Abnormal None Seen Urine Amorph Sediment SMALL Negative Source: URINE, CLEAN CAT <SEE NOTE> 17 Urine Culture 06/03/2018 [facility] Urine Culture STREP. Abnormal [address] [place]ACT[place] <[place] [address] NOTE> [phone] Quantity > 100,000 CFU/mL 19 Recommended Therapy: PENICILLIN OR AM <SEE NOTE> 20 Urine Culture URETHRAL PEYMAN Quantity < 10,000 CFU/mL Strep. Agalactiae (Beta GRP 06/03/2018 [facility] Penicillin G <=0.12 S B) [address] [place] [address] [phone] Tetracycline >=16 R Ampicillin <=0.25 S Moxifloxacin 0.5 S Levofloxacin 1 S Vancomycin <=0.5 S Blood total cell 06/03/2018 N2N/CCD Import Blood total cell 100 count count Blood platelet 06/03/2018 N2N/CCD Import Blood platelet Normal adequacy detection adequacy detection by light microsc by light microscopy Manual blood 06/03/2018 N2N/CCD Import Manual blood 3 0-10 monocytes/100 monocytes/100 leukocytes leukocytes Manual blood 06/03/2018 N2N/CCD Import Manual blood 1 0-7 variant lymphocytes variant as percentage of lymphocytes as percentage of leukocytes Manual blood 06/03/2018 N2N/CCD Import Manual blood 20 20-42 lymphocytes/100 lymphocytes/100 leukocytes leukocytes Manual blood 06/03/2018 N2N/CCD Import Manual blood 74 High 33-73 segmented segmented neutrophils/100 neutrophils/100 leukocytes leukocytes Manual blood band 06/03/2018 N2N/CCD Import Manual blood band 1 0-8 neutrophils neutrophils form/100 leukocytes form/100 leukocytes Serum or plasma 03/15/2018 N2N/CCD Import Serum or plasma 8.8 8.5-10.1 calcium measurement calcium (mass/volume) measurement (mass/volume) Serum or plasma 03/15/2018 N2N/CCD Import Serum or plasma 8 Low 15-37 aspartate aspartate aminotransferase aminotransferase measure measurement (enzymatic activity/volume) Serum or plasma 03/15/2018 N2N/CCD Import Serum or plasma 67 45-117 alkaline alkaline phosphatase phosphatase measurement ( measurement (enzymatic activity/volume) Serum or plasma 03/15/2018 N2N/CCD Import Serum or plasma 3.4 3.4-5.0 albumin measurement albumin (mass/volume) measurement (mass/volume) Serum carbon 03/15/2018 N2N/CCD Import Serum carbon 27 21-32 dioxide measurement dioxide measurement RDW RBC Auto-Rto 03/15/2018 N2N/CCD Import RDW RBC Auto-Rto 14.2 11.7- 14.4 RDW RBC Auto 03/15/2018 N2N/CCD Import RDW RBC Auto 43.2 3-47 Prot Ur 03/15/2018 N2N/CCD Import Prot Ur Negative Negative Strip.auto-mCnc Strip.auto-mCnc Potassium 03/15/2018 N2N/CCD Import Potassium 3.8 3.5-5.1 SerPl-sCnc SerPl-sCnc Nitrite Ur Ql 03/15/2018 N2N/CCD Import Nitrite Ur Ql Negative Negative Strip.auto Strip.auto Neutrophils/leuk 03/15/2018 N2N/CCD Import Neutrophils/leuk 73.9 High 40.4-72.8 NFr Bld Auto NFr Bld Auto Neutrophils # Bld 03/15/2018 N2N/CCD Import Neutrophils # Bld 7.65 High 1.8-7.0 Auto Auto Monocytes/leuk NFr 03/15/2018 N2N/CCD Import Monocytes/leuk NFr 8.4 4.3- 13.2 Bld Auto Bld Auto Manual blood 03/15/2018 N2N/CCD Import Manual blood 75 High 33-73 segmented segmented neutrophils/100 neutrophils/100 leukocytes leukocytes Manual blood 03/15/2018 N2N/CCD Import Manual blood 10 0-10 monocytes/100 monocytes/100 leukocytes leukocytes Serum or plasma 03/15/2018 N2N/CCD Import Serum or plasma 1.0 0.6-1.3 creatinine creatinine measurement measurement (mass/volum (mass/volume) Serum or plasma 03/15/2018 N2N/CCD Import Serum or plasma 114 High 74- 106 glucose measurement glucose (mass/volume) measurement (mass/volume) Serum or plasma 03/15/2018 N2N/CCD Import Serum or plasma 7.0 6.4-8.2 protein measurement protein (mass/volume) measurement (mass/volume) Serum or plasma 03/15/2018 N2N/CCD Import Serum or plasma 0.5 0.2-1.0 total bilirubin total bilirubin measurement (mass/ measurement (mass/volume) Serum or plasma 03/15/2018 N2N/CCD Import Serum or plasma 11 7-18 urea nitrogen urea nitrogen measurement measurement (mass/vo (mass/volume) Serum or plasma 03/15/2018 N2N/CCD Import Serum or plasma 11.0 urea urea nitrogen/creatinine nitrogen/creatinin mass rati e mass ratio Serum sodium 03/15/2018 N2N/CCD Import Serum sodium 139 136-145 measurement measurement Specific gravity of 03/15/2018 N2N/CCD Import Specific gravity 1.010 1.010-1.03 Urine by Automated of Urine by 0 test strip Automated test strip Unloinc 03/15/2018 N2N/CCD Import Unloinc Diff Ordered Urine appearance 03/15/2018 N2N/CCD Import Urine appearance Clear Clear determination determination Urine glucose 03/15/2018 N2N/CCD Import Urine glucose Negative Negative measurement by measurement by automated test automated test strip strip (mass/volume) Urine hemoglobin 03/15/2018 N2N/CCD Import Urine hemoglobin Negative Negative detection by detection by automated test automated test strip strip Urine total 03/15/2018 N2N/CCD Import Urine total Negative Negative bilirubin detection bilirubin by automated test detection by automated test strip Urobilinogen Ur 03/15/2018 N2N/CCD Import Urobilinogen Ur 0.2 0.2-1.0 Strip-aCnc Strip-aCnc pH Ur Strip.auto 03/15/2018 N2N/CCD Import pH Ur Strip.auto 6.0 Low 6.5- 7.5 Blood microcytes 03/15/2018 N2N/CCD Import Blood microcytes 0-1+ detection by light detection by light microscopy microscopy Automated urine 03/15/2018 N2N/CCD Import Automated urine None Seen 0-2 sediment sediment erythrocyte count erythrocyte count by micr by microscopy (number/high power field) Automated 03/15/2018 N2N/CCD Import Automated 85.2 80.9-99.0 erythrocyte mean erythrocyte mean corpuscular volume corpuscular volume Automated 03/15/2018 N2N/CCD Import Automated 31.7 30.8-34.3 erythrocyte mean erythrocyte mean corpuscular corpuscular hemoglobin hemoglobin concentration measurement (mass/volume) Automated 03/15/2018 N2N/CCD Import Automated 27.0 25.9-32.7 erythrocyte mean erythrocyte mean corpuscular corpuscular hemoglobin hemoglobin (mass per erythrocyte) Automated blood 03/15/2018 N2N/CCD Import Automated blood 10.0 8.9-12.4 platelet mean platelet mean volume measurement volume measurement Automated blood 03/15/2018 N2N/CCD Import Automated blood 302 155-360 platelet count platelet count Automated blood 03/15/2018 N2N/CCD Import Automated blood 1.67 1.0-4.0 lymphocyte count lymphocyte count (number/volume) (number/volume) Automated blood 03/15/2018 N2N/CCD Import Automated blood 39.1 36.0- 46.1 hematocrit (volume hematocrit (volume fraction) fraction) Automated blood 03/15/2018 N2N/CCD Import Automated blood 0.11 0.0-0.5 eosinophil count eosinophil count Automated blood 03/15/2018 N2N/CCD Import Automated blood 0.04 0.0-0.1 basophil count basophil count (count/volume) (count/volume) Anion Gap 03/15/2018 N2N/CCD Import Anion Gap 9 8-16 SerPl-sCnc SerPl-sCnc Amorphous sediment 03/15/2018 N2N/CCD Import Amorphous sediment Small Negative detection in urine detection in urine sediment by sediment by light microscopy Albumin/Glob SerPl 03/15/2018 N2N/CCD Import Albumin/Glob SerPl 0.9 Alt SerPl-cCnc 03/15/2018 N2N/CCD Import Alt SerPl-cCnc 16 12-78 Differential-WBC 03/15/2018 [facility] Total Cells 100 #CELLS [address] [place] [address] [phone] Neutrophils% 75 % High 33-73 Lymph% 13 % Low 20-42 Monocyte% 10 % N 0-10 Eosinophil% 1 % N 0-5 Basophil% 1 % N 0-2 Platelet Estimate NORMAL Anisocytosis 1+ Microcytosis 0-1+ Slide Review 03/15/2018 [facility] Slide Review DIFF ORDERED [address] [place] [address] [phone] CBC W/Automated 03/15/2018 [facility] White Blood 10.3 K/uL N 3.1-10.[address] [place] [address] [phone] Red Blood Count 4.59 M/uL N 3.90-5.40 Hemoglobin 12.4 gm/dL N 11.6-15.8 Hematocrit 39.1 % N 36.0-46.1 Mean Cell Volume 85.2 fl N 80.9-99.0 Mean Corpuscular HGB 27.0 pg N 25.9-32.7 Mean Corpuscular HGB Conc 31.7 g/dL N 30.8-34.3 Platelet Count 302 K/uL N 155-360 Red Cell Distri Width SD 43.2 fl N 3-47 Red Cell Distri Width %CV 14.2 % N 11.7-14.4 Mean Platelet Volume 10.0 fL N 8.9-12.4 Neut% 73.9 % High 40.4-72.8 Lymph % 16.2 % Low 20.0-42.0 [place] % 8.4 % N 4.3-13.2 Eo% 1.1 % N 0.0-6.6 Bas% 0.4 % N 0.0-1.1 Neut# 7.65 K/uL High 1.8-7.0 Lymph # 1.67 K/uL N 1.0-4.0 [place] # 0.87 K/uL N 0.3-0.9 Eos # 0.11 K/uL N 0.0-0.5 Baso # 0.04 K/uL N 0.0-0.1 Comprehensive Metabolic 03/15/2018 [facility] Glucose 114 mg/dL High 74-106 Panel [address] [place] [address] [phone] BUN 11 mg/dL N 7-18 Creatinine 1.0 mg/dL N 0.6-1.3 Glom Filtration Rate, Estimate 56 mL/min >60 If >60 mL/min >60 22 BUN/Creat 11.0 ratio Sodium 139 mmol/L N 136-145 Potassium 3.8 mmol/L N 3.5-5.1 Chloride 103 mmol/L N 98-107 Carbon Dioxide 27 mmol/L N 21-32 Anion Gap 9 mEq/L N 8-16 Calcium 8.8 mg/dL N 8.5-10.1 Total Protein 7.0 g/dL N 6.4-8.2 Albumin 3.4 g/dL N 3.4-5.0 Globulin 3.6 g/dL N 1.9-4.3 Alb/Glob 0.9 ratio Bilirubin,Total 0.5 mg/dL N 0.2-1.0 Sgot/Ast 8 U/L Low 15-37 23 SGPT/Alt 16 U/L N 12-78 Alkaline Phosphatase 67 U/L N 45-117 Ua RFX Micro & Culture 03/15/2018 [facility] Urine Color YELLOW Yellow II [address] [place] [address] [phone] Urine Clarity CLEAR Clear Urine Glucose - Dipstick NEGATIVE mg/dL Negative Urine Bilirubin - Dipstick NEGATIVE Negative Urine Ketone NEGATIVE mg/dL Negative Urine Specific [place] 1.010 N 1.010-1.030 Urine Blood NEGATIVE Negative Urine PH 6.0 Low 6.5-7.5 Urine Protein - Dipstick NEGATIVE mg/dL Negative Urine Urobilinogen - Dipstick 0.2 E.U./dL N 0.2-1.0 Urine Nitrite - Dipstick NEGATIVE Negative Urine Leuk Esterase MODERATE Abnormal Negative Urine RBC NONE SEEN rbc/hpf 0-2 Urine WBC 2-5 wbc/hpf 0-7 Urine Epithelial Cells VERY FEW /lpf None Seen Urine Bacteria FEW None Seen Urine Amorph Sediment SMALL Negative Source: URINE, CLEAN CAT <SEE NOTE> 24 Manual blood 03/15/2018 N2N/CCD Import Manual blood 13 Low 20-42 lymphocytes/100 lymphocytes/100 leukocytes leukocytes Manual blood 03/15/2018 N2N/CCD Import Manual blood 1 0-2 basophils/100 basophils/100 leukocytes leukocytes Leukocyte esterase 03/15/2018 N2N/CCD Import Leukocyte Moderate High Negative Ur Ql Strip.auto esterase Ur Ql Strip.auto Ketones Ur 03/15/2018 N2N/CCD Import Ketones Ur Negative Negative Strip.auto-mCnc Strip.auto-mCnc Globulin Ser 03/15/2018 N2N/CCD Import Globulin Ser 3.6 1.9-4.3 Calc-mCnc Calc-mCnc GFR/Bsa pred.non 03/15/2018 N2N/CCD Import GFR/Bsa pred.non 56 >60 black SerPl black SerPl MDRD-ArVRat MDRD-ArVRat Epithelial cells 03/15/2018 N2N/CCD Import Epithelial cells Very Few None Seen detection in urine detection in sediment by li urine sediment by light microscopy Eosinophil/leuk 03/15/2018 N2N/CCD Import Eosinophil/leuk 1.1 0.0-6.6 NFr Bld Auto NFr Bld Auto Color Ur 03/15/2018 N2N/CCD Import Color Ur Yellow Yellow Bacteria detection 03/15/2018 N2N/CCD Import Bacteria Few None Seen in urine sediment detection in by light micr urine sediment by light microscopy Basophils/leuk NFr 03/15/2018 N2N/CCD Import Basophils/leuk 0.4 0.0-1.1 Bld Auto NFr Bld Auto Blood anisocytosis 03/15/2018 N2N/CCD Import Blood 1+ detection by light anisocytosis microscopy detection by light microscopy Blood erythrocytes 03/15/2018 N2N/CCD Import Blood 4.59 3.90-5.40 automated count erythrocytes (number/volume) automated count (number/volume) Blood hemoglobin 03/15/2018 N2N/CCD Import Blood hemoglobin 12.4 11.6- 15.8 measurement measurement (mass/volume) (mass/volume) Blood leukocytes 03/15/2018 N2N/CCD Import Blood leukocytes 10.3 3.1- 10.7 automated count automated count (number/volume) (number/volume) Chloride 03/15/2018 N2N/CCD Import Chloride 103 98-107 SerPl-sCnc SerPl-sCnc Blood total cell 03/15/2018 N2N/CCD Import Blood total cell 100 count count Blood platelet 03/15/2018 N2N/CCD Import Blood platelet Normal adequacy detection adequacy by light microsc detection by light microscopy Blood monocytes 03/15/2018 N2N/CCD Import Blood monocytes 0.87 0.3-0.9 automated count automated count (number/volume) (number/volume) Urine Culture 03/12/2018 [facility] Urine Culture MIXED 25, [address] [place] [address] <SEE NOTE> [phone] Quantity 10,000 - 50,000 <SEE NOTE> 27 Affirm 03/12/2018 [facility] Trichomonas Negative [Negative] Vaginitis [address] [place] [address] [phone] Gardnerella vaginalis Negative [Negative] Bella species Negative [Negative] 28 Bella species 03/12/2018 N2N/CCD Import Bella species Dna Negative [ Negative] Dna probe probe Gardnerella 03/12/2018 N2N/CCD Import Gardnerella Negative [Negative] vaginalis nucleic vaginalis nucleic acid probe, acid probe, quantifi quantification Trichomonas 03/12/2018 N2N/CCD Import Trichomonas Negative [Negative] vaginalis Dna vaginalis Dna detection by detection by probe probe and t and target amplification method Lab Results 03/12/2018 N2N/CCD Import Gardnerella Dna Negative [Negative ] Probe Urine Dipstick 03/12/2018 [facility] Ua Color clear Yellow Ua Clarity clear Clear Ua Leuko 1+ High Negative Ua Nitrite neg Negative Ua Urobilinogen neg Low 0.2 - 1.0 E.U./dL Ua Protein neg Negative Ua PH 7.0 6.5-7.5 Ua Blood neg Negative Ua Specific [place] 1.010 1.010-1.030 Ua Ketones neg Negative Ua Bilirubin neg Negative Ua Glucose neg Negative Serum sodium 03/07/2018 N2N/CCD Import Serum sodium 139 136-145 measurement measurement Serum or plasma urea 03/07/2018 N2N/CCD Import Serum or plasma 12.2 nitrogen/creatinine urea mass rati nitrogen/creatinine mass ratio Serum or plasma urea 03/07/2018 N2N/CCD Import Serum or plasma 11 7-18 nitrogen measurement urea nitrogen (mass/vo measurement (mass/volume) Serum or plasma 03/07/2018 N2N/CCD Import Serum or plasma 0.5 0.2-1.0 total bilirubin total bilirubin measurement (mass/ measurement (mass/volume) Serum or plasma 03/07/2018 N2N/CCD Import Serum or plasma 7.0 6.4-8.2 protein measurement protein measurement (mass/volume) (mass/volume) Serum or plasma 03/07/2018 N2N/CCD Import Serum or plasma 139 56-289 lipase measurement lipase measurement (enzymatic acti (enzymatic activity/volume) Serum or plasma 03/07/2018 N2N/CCD Import Serum or plasma 1.0 0.4-1.9 lactate measurement lactate measurement (moles/volume) (moles/volume) Serum or plasma 03/07/2018 N2N/CCD Import Serum or plasma 82 74-106 glucose measurement glucose measurement (mass/volume) (mass/volume) Serum or plasma 03/07/2018 N2N/CCD Import Serum or plasma 0.9 0.6-1.3 creatinine creatinine measurement measurement (mass/volum (mass/volume) Serum or plasma 03/07/2018 N2N/CCD Import Serum or plasma 8.9 8.5-10.1 calcium measurement calcium measurement (mass/volume) (mass/volume) Serum or plasma 03/07/2018 N2N/CCD Import Serum or plasma 12 Low 15-37 aspartate aspartate aminotransferase aminotransferase measure measurement (enzymatic activity/volume) Serum or plasma 03/07/2018 N2N/CCD Import Serum or plasma 73 45-117 alkaline phosphatase alkaline measurement ( phosphatase measurement (enzymatic activity/volume) Serum or plasma 03/07/2018 N2N/CCD Import Serum or plasma 3.4 3.4-5.0 albumin measurement albumin measurement (mass/volume) (mass/volume) Ua RFX Micro & 03/07/2018 [facility] Urine Color YELLOW Yellow 29 Culture II [address] [place] [address] [phone] Urine Clarity CLEAR Clear Urine Glucose - Dipstick NEGATIVE mg/dL Negative Urine Bilirubin - Dipstick NEGATIVE Negative Urine Ketone NEGATIVE mg/dL Negative Urine Specific [place] <=1.005 Low 1.010-1.030 Urine Blood NEGATIVE Negative Urine PH 6.0 Low 6.5-7.5 Urine Protein - Dipstick NEGATIVE mg/dL Negative Urine Urobilinogen - Dipstick 0.2 E.U./dL N 0.2-1.0 Urine Nitrite - Dipstick NEGATIVE Negative Urine Leuk Esterase NEGATIVE Negative Source: URINE, CLEAN CAT <SEE NOTE> 30 Color Ur 03/07/2018 N2N/CCD Import Color Ur Yellow Yellow Ketones Ur 03/07/2018 N2N/CCD Import Ketones Ur Negative Negative Strip.auto-mCnc Strip.auto-mCnc Leukocyte esterase 03/07/2018 N2N/CCD Import Leukocyte esterase Negative Negative Ur Ql Strip.auto Ur Ql Strip.auto Nitrite Ur Ql 03/07/2018 N2N/CCD Import Nitrite Ur Ql Negative Negative Strip.auto Strip.auto Prot Ur 03/07/2018 N2N/CCD Import Prot Ur Negative Negative Strip.auto-mCnc Strip.auto-mCnc Urine appearance 03/07/2018 N2N/CCD Import Urine appearance Clear Clear determination determination Urine glucose 03/07/2018 N2N/CCD Import Urine glucose Negative Negative measurement by measurement by automated test automated test strip strip (mass/volume) Urine hemoglobin 03/07/2018 N2N/CCD Import Urine hemoglobin Negative Negative detection by detection by automated test automated test strip strip Urine total 03/07/2018 N2N/CCD Import Urine total Negative Negative bilirubin detection bilirubin by automated test detection by automated test strip Urobilinogen Ur 03/07/2018 N2N/CCD Import Urobilinogen Ur 0.2 0.2-1.0 Strip-aCnc Strip-aCnc pH Ur Strip.auto 03/07/2018 N2N/CCD Import pH Ur Strip.auto 6.0 Low 6.5- 7.5 CBC W/Automated 03/07/2018 [facility] White Blood Count 7.9 K/uL N 3.1-10.7 Diff [address] [place] [address] [phone] Red Blood Count 4.74 M/uL N 3.90-5.40 Hemoglobin 13.0 gm/dL N 11.6-15.8 Hematocrit 40.5 % N 36.0-46.1 Mean Cell Volume 85.4 fl N 80.9-99.0 Mean Corpuscular HGB 27.4 pg N 25.9-32.7 Mean Corpuscular HGB Conc 32.1 g/dL N 30.8-34.3 Platelet Count 290 K/uL N 155-360 Red Cell Distri Width SD 42.9 fl N 3-47 Red Cell Distri Width %CV 14.0 % N 11.7-14.4 Mean Platelet Volume 9.7 fL N 8.9-12.4 Neut% 71.6 % N 40.4-72.8 Lymph % 15.0 % Low 20.0-42.0 [place] % 10.6 % N 4.3-13.2 Eo% 1.8 % N 0.0-6.6 Bas% 1.0 % N 0.0-1.1 Neut# 5.68 K/uL N 1.8-7.0 Lymph # 1.19 K/uL N 1.0-4.0 [place] # 0.84 K/uL N 0.3-0.9 Eos # 0.14 K/uL N 0.0-0.5 Baso # 0.08 K/uL N 0.0-0.1 Comprehensive Metabolic 03/07/2018 [facility] Glucose 82 mg/dL N 74-106 Panel [address] [place] [address] [phone] BUN 11 mg/dL N 7-18 Creatinine 0.9 mg/dL N 0.6-1.3 Glom Filtration Rate, Estimate >60 mL/min >60 If >60 mL/min >60 31 BUN/Creat 12.2 ratio Sodium 139 mmol/L N 136-145 Potassium 4.0 mmol/L N 3.5-5.1 Chloride 106 mmol/L N 98-107 Carbon Dioxide 24 mmol/L N 21-32 Anion Gap 9 mEq/L N 8-16 Calcium 8.9 mg/dL N 8.5-10.1 Total Protein 7.0 g/dL N 6.4-8.2 Albumin 3.4 g/dL N 3.4-5.0 Globulin 3.6 g/dL N 1.9-4.3 Alb/Glob 0.9 ratio Bilirubin,Total 0.5 mg/dL N 0.2-1.0 Sgot/Ast 12 U/L Low 15-37 32 SGPT/Alt 18 U/L N 12-78 Alkaline Phosphatase 73 U/L N 45-117 Laboratory test 03/07/2018 [facility] Lipase 139 U/L N 56-289 finding [address] [place], [place] [id number] [phone] Lactic Acid 03/07/2018 [facility] Lactic Acid 1.0 mmol/L N 0.4-1.9 [address] [place] [address] [phone] Lab Reflex >2.0 for Sepsis? Y Alt SerPl-cCnc 03/07/2018 N2N/CCD Import Alt SerPl-cCnc 18 12-78 Albumin/Glob SerPl 03/07/2018 N2N/CCD Import Albumin/Glob SerPl 0.9 Anion Gap 03/07/2018 N2N/CCD Import Anion Gap 9 8-16 SerPl-sCnc SerPl-sCnc Automated blood 03/07/2018 N2N/CCD Import Automated blood 0.08 0.0-0.1 basophil count basophil count (count/volume) (count/volume) Automated blood 03/07/2018 N2N/CCD Import Automated blood 0.14 0.0-0.5 eosinophil count eosinophil count Automated blood 03/07/2018 N2N/CCD Import Automated blood 40.5 36.0- 46.1 hematocrit (volume hematocrit (volume fraction) fraction) Automated blood 03/07/2018 N2N/CCD Import Automated blood 1.19 1.0-4.0 lymphocyte count lymphocyte count (number/volume) (number/volume) Automated blood 03/07/2018 N2N/CCD Import Automated blood 290 155-360 platelet count platelet count Automated blood 03/07/2018 N2N/CCD Import Automated blood 9.7 8.9-12.4 platelet mean platelet mean volume measurement volume measurement Automated 03/07/2018 N2N/CCD Import Automated 27.4 25.9-32.7 erythrocyte mean erythrocyte mean corpuscular corpuscular hemoglobin hemoglobin (mass per erythrocyte) Automated 03/07/2018 N2N/CCD Import Automated 32.1 30.8-34.3 erythrocyte mean erythrocyte mean corpuscular corpuscular hemoglobin hemoglobin concentration measurement (mass/volume) Automated 03/07/2018 N2N/CCD Import Automated 85.4 80.9-99.0 erythrocyte mean erythrocyte mean corpuscular volume corpuscular volume Serum carbon 03/07/2018 N2N/CCD Import Serum carbon 24 21-32 dioxide dioxide measurement measurement RDW RBC Auto-Rto 03/07/2018 N2N/CCD Import RDW RBC Auto-Rto 14.0 11.7- 14.4 RDW RBC Auto 03/07/2018 N2N/CCD Import RDW RBC Auto 42.9 3-47 Potassium 03/07/2018 N2N/CCD Import Potassium 4.0 3.5-5.1 SerPl-sCnc SerPl-sCnc Neutrophils/leuk 03/07/2018 N2N/CCD Import Neutrophils/leuk 71.6 40.4- 72.8 NFr Bld Auto NFr Bld Auto Neutrophils # Bld 03/07/2018 N2N/CCD Import Neutrophils # Bld 5.68 1.8- 7.0 Auto Auto Monocytes/leuk NFr 03/07/2018 N2N/CCD Import Monocytes/leuk NFr 10.6 4.3 -13.2 Bld Auto Bld Auto Lymphocytes/leuk 03/07/2018 N2N/CCD Import Lymphocytes/leuk 15.0 Low 20.0 -42.0 NFr Bld Auto NFr Bld Auto Basophils/leuk NFr 03/07/2018 N2N/CCD Import Basophils/leuk NFr 1.0 0.0- 1.1 Bld Auto Bld Auto Blood erythrocytes 03/07/2018 N2N/CCD Import Blood erythrocytes 4.74 3.90-5.40 automated count automated count (number/volume) (number/volume) Blood hemoglobin 03/07/2018 N2N/CCD Import Blood hemoglobin 13.0 11.6- 15.8 measurement measurement (mass/volume) (mass/volume) Blood leukocytes 03/07/2018 N2N/CCD Import Blood leukocytes 7.9 3.1- 10.7 automated count automated count (number/volume) (number/volume) Blood monocytes 03/07/2018 N2N/CCD Import Blood monocytes 0.84 0.3-0.9 automated count automated count (number/volume) (number/volume) Chloride 03/07/2018 N2N/CCD Import Chloride SerPl-sCnc 106 98-107 SerPl-sCnc Eosinophil/leuk 03/07/2018 N2N/CCD Import Eosinophil/leuk NFr 1.8 0.0- 6.6 NFr Bld Auto Bld Auto Globulin Ser 03/07/2018 N2N/CCD Import Globulin Ser 3.6 1.9-4.3 Calc-mCnc Calc-mCnc Urine Dipstick 03/03/2018 [facility] Ua Color yellow Yellow Ua Clarity clear Clear Ua Leuko trace Negative Ua Nitrite negative Negative Ua Urobilinogen negative Low 0.2 - 1.0 E.U./dL Ua Protein negative Negative Ua PH 6.0 Low 6.5-7.5 Ua Blood negative Negative Ua Specific [place] 1.015 1.010-1.030 Ua Ketones 2+ High Negative Ua Bilirubin negative Negative Ua Glucose negative Negative Poc Urinalysis 02/28/2018 [facility] Poc Glucose, Negative Negative [phone] Urine Poc Bilirubin, Urine Negative Negative Poc Ketone, Urine Negative Negative Poc Specific [place], Urine <=1.005 Low 1.010-1.030 Poc Blood, Urine Negative Negative Poc pH, Urine 6.5 N 5-9 Poc Protein, Urine Negative Negative Poc Urobilinogen, Urine 0.2 Negative Poc Nitrite, Urine Negative Negative Poc Leukocytes, Urine 2+ Abnormal Negative Poc Color, Urine Yellow Poc Clarity, Urine Clear 33 Urine Culture 02/28/2018 [facility] Urine Culture SEE 34, 35 And [phone] RESULT Sensitivities BELOW Laboratory test 02/28/2018 [facility] Point of Care 84 mg/dL N 70-100 36 finding [phone] Glucose Serum or plasma 01/27/2018 N2N/CCD Import Serum or plasma 125 < 100 cholesterol in cholesterol in LDL measurement LDL measurement by by calculation (mass/volume) Laboratory test 01/27/2018 [facility] Vitamin 52.7 30.0-1 37, [address] D,25-Hydroxy ng/mL 00.0 [place] [address] [phone] Serum or plasma 01/27/2018 N2N/CCD Import Serum or plasma 110 <150 triglyceride triglyceride measurement measurement (mass/vol (mass/volume) Serum or plasma 01/27/2018 N2N/CCD Import Serum or plasma 72 >40 cholesterol in cholesterol in HDL measurement HDL measurement (ma (mass/volume) Serum or plasma 01/27/2018 N2N/CCD Import Serum or plasma 219 High <200 cholesterol cholesterol measurement measurement (mass/volu (mass/volume) Serum or plasma 01/27/2018 N2N/CCD Import Serum or plasma 52.7 30.0-1 25-hydroxyvitami 25-hydroxyvitam 00.0 n D measurement in D (m measurement (mass/volume) CBS W/Automated 01/27/2018 [facility] White Blood 8.5 K/uL N 3.1-[address] Count .7 [place] [address] [phone] Red Blood Count 4.99 M/uL N 3.90-5.40 Hemoglobin 13.7 gm/dL N 11.6-15.8 Hematocrit 42.2 % N 36.0-46.1 Mean Cell Volume 84.6 fl N 80.9-99.0 Mean Corpuscular HGB 27.5 pg N 25.9-32.7 Mean Corpuscular HGB Conc 32.5 g/dL N 30.8-34.3 Platelet Count 332 K/uL N 155-360 Red Cell Distri Width SD 43.0 fl N 3-47 Red Cell Distri Width %CV 14.3 % N 11.7-14.4 Mean Platelet Volume 9.7 fL N 8.9-12.4 Neut% 76.3 % High 40.4-72.8 Lymph % 14.5 % Low 20.0-42.0 [place] % 7.0 % N 4.3-13.2 Eo% 1.5 % N 0.0-6.6 Bas% 0.7 % N 0.0-1.1 Neut# 6.47 K/uL N 1.8-7.0 Lymph # 1.23 K/uL N 1.0-4.0 [place] # 0.59 K/uL N 0.3-0.9 Eos # 0.13 K/uL N 0.0-0.5 Baso # 0.06 K/uL N 0.0-0.1 LDL Cholesterol 01/27/2018 [facility] Cholesterol 219 mg/dL High <200 39 Profile [address] [place] [address] [phone] Triglycerides 110 mg/dL <150 40 HDL Cholesterol 72 mg/dL >40 41 LDL-Cholesterol 125 mg/dL < 100 42 Basic Metabolic Panel 01/27/2018 [facility] Glucose 92 mg/dL N 74-106 [address] [place] [address] [phone] BUN 12 mg/dL N 7-18 Creatinine 1.0 mg/dL N 0.6-1.3 Glom Filtration Rate, Estimate 56 mL/min >60 If >60 mL/min >60 43 BUN/Creat 12.0 ratio Sodium 139 mmol/L N 136-145 Potassium 4.2 mmol/L N 3.5-5.1 Chloride 102 mmol/L N 98-107 Carbon Dioxide 28 mmol/L N 21-32 Anion Gap 9 mEq/L N 8-16 Calcium 9.4 mg/dL N 8.5-10.1 Comprehensive Metabolic 09/18/2017 [facility] Glucose 82 mg/dL N 74-106 44 Panel [address] [place], [place] [id number] [phone] BUN 21 mg/dL High 7-18 Creatinine 0.9 mg/dL N 0.6-1.3 Glom Filtration Rate, Estimate >60 mL/min >60 If >60 mL/min >60 45 BUN/Creat 23.3 ratio Sodium 138 mmol/L N 136-145 Potassium 4.2 mmol/L N 3.5-5.1 Chloride 104 mmol/L N 98-107 Carbon Dioxide 26 mmol/L N 21-32 Anion Gap 8 mEq/L N 8-16 Calcium 9.1 mg/dL N 8.5-10.1 Total Protein 7.0 g/dL N 6.4-8.2 Albumin 3.7 g/dL N 3.4-5.0 Globulin 3.3 g/dL N 1.9-4.3 Alb/Glob 1.1 ratio Bilirubin,Total 0.6 mg/dL N 0.2-1.0 Sgot/Ast 11 U/L Low 15-37 46 SGPT/Alt 13 U/L N 12-78 Alkaline Phosphatase 77 U/L N 45-117 LDL Cholesterol 09/18/2017 [facility] Cholesterol 216 mg/dL High <200 47 Profile [address] [place], [place] [id number] [phone] Triglycerides 152 mg/dL High <150 48 HDL Cholesterol 63 mg/dL >40 49 LDL-Cholesterol 123 mg/dL < 100 50 Comprehensive Metabolic 02/23/2017 [facility] Glucose 92 mg/dL N 74-106 51 Panel [address] [place] [address] [phone] BUN 9 mg/dL N 7-18 Creatinine 0.7 mg/dL N 0.6-1.3 Glom Filtration Rate, Estimate >60 mL/min >60 If >60 mL/min >60 52 BUN/Creat 12.8 ratio Sodium 142 mmol/L N 136-145 Potassium 3.7 mmol/L N 3.5-5.1 Chloride 107 mmol/L N 98-107 Carbon Dioxide 26 mmol/L N 21-32 Anion Gap 9 mEq/L N 8-16 Calcium 8.9 mg/dL N 8.5-10.1 Total Protein 6.7 g/dL N 6.4-8.2 Albumin 3.4 g/dL N 3.4-5.0 Globulin 3.3 g/dL N 1.9-4.3 Alb/Glob 1.0 ratio Bilirubin,Total 0.6 mg/dL N 0.2-1.0 Sgot/Ast 6 U/L Low 15-37 53 SGPT/Alt 16 U/L N 12-78 Alkaline Phosphatase 72 U/L N 45-117 LDL Cholesterol 02/23/2017 [facility] Cholesterol 222 mg/dL High <200 [address] [place] [address] [phone] Triglycerides 181 mg/dL High <150 55 HDL Cholesterol 74 mg/dL >40 56 LDL-Cholesterol 112 mg/dL < 100 57 CBS W/Automated Diff 02/23/2017 [facility] White Blood 7.5 K/uL N 3.1-10.[address] [place] [address] [phone] Red Blood Count 4.51 M/uL N 3.90-5.40 Hemoglobin 12.4 gm/dL N 11.6-15.8 Hematocrit 39.0 % N 36.0-46.1 Mean Cell Volume 86.5 fl N 80.9-99.0 Mean Corpuscular HGB 27.5 pg N 25.9-32.7 Mean Corpuscular HGB Conc 31.8 g/dL N 30.8-34.3 Platelet Count 327 K/uL N 150-400 Red Cell Distri Width SD 46.6 fl N 3-47 Red Cell Distri Width %CV 15.0 % High 11.7-14.4 Mean Platelet Volume 11.3 fL N 8.9-12.4 Neut% 69.8 % N 40.4-72.8 Lymph % 17.3 % Low 20.0-42.0 [place] % 9.0 % N 4.3-13.2 Eo% 3.2 % N 0.0-6.6 Bas% 0.7 % N 0.0-1.1 Neut# 5.21 K/uL N 1.8-7.0 Lymph # 1.29 K/uL N 1.0-4.0 [place] # 0.67 K/uL N 0.3-0.9 Eos # 0.24 K/uL N 0.0-0.5 Baso # 0.05 K/uL N 0.0-0.1 Basic Metabolic Panel 01/03/2017 [facility] Glucose 111 mg/dL High 74-106 58 [address] [place] [address] [phone] BUN 7 mg/dL N 7-18 Creatinine 0.8 mg/dL N 0.6-1.3 Glom Filtration Rate, Estimate >60 mL/min >60 If >60 mL/min >60 59 BUN/Creat 8.7 ratio Sodium 141 mmol/L N 136-145 Potassium 3.6 mmol/L N 3.5-5.1 Chloride 108 mmol/L High 98-107 Carbon Dioxide 25 mmol/L N 21-32 Anion Gap 8 mEq/L N 8-16 Calcium 7.9 mg/dL Low 8.5-10.1 Eosinophil/leuk NFr 01/03/2017 N2N/CCD Import Eosinophil/leuk NFr 1.6 0.0-6.6 Bld Auto Bld Auto Glucose 01/03/2017 N2N/CCD Import Glucose 111 High 74-106 [Mass/volume] in [Mass/volume] in Serum or Plasma Serum or Plasma Eosinophil # Bld 01/03/2017 N2N/CCD Import Eosinophil # Bld 0.17 0.0- 0.5 Auto Auto Creat SerPl-mCnc 01/03/2017 N2N/CCD Import Creat SerPl-mCnc 0.8 0.6-1.3 CBS W/Automated Diff 01/03/2017 [facility] White Blood Count 10.8 High 3.1- 10.[address] K/[place] [address] [phone] Red Blood Count 3.96 M/uL N 3.90-5.40 Hemoglobin 11.0 gm/dL Low 11.6-15.8 Hematocrit 35.0 % Low 36.0-46.1 Mean Cell Volume 88.4 fl N 80.9-99.0 Mean Corpuscular HGB 27.8 pg N 25.9-32.7 Mean Corpuscular HGB Conc 31.4 g/dL N 30.8-34.3 Platelet Count 242 K/uL N 150-400 Red Cell Distri Width SD 43.9 fl N 3-47 Red Cell Distri Width %CV 13.8 % N 11.7-14.4 Mean Platelet Volume 11.1 fL N 8.9-12.4 Neut% 78.6 % High 40.4-72.8 Lymph % 10.0 % Low 20.0-42.0 [place] % 9.5 % N 4.3-13.2 Eo% 1.6 % N 0.0-6.6 Bas% 0.3 % N 0.0-1.1 Neut# 8.48 K/uL High 1.8-7.0 Lymph # 1.08 K/uL N 1.0-4.0 [place] # 1.03 K/uL High 0.3-0.9 Eos # 0.17 K/uL N 0.0-0.5 Baso # 0.03 K/uL N 0.0-0.1 Hct VFr Bld Auto 01/03/2017 N2N/CCD Import Hct VFr Bld Auto 35.0 #L 36.0- 46.1 Lymphocytes 01/03/2017 N2N/CCD Import Lymphocytes 1.08 1.0-4.0 [#/volume] in [#/volume] in Blood by Blood by Automated count Automated count Slide Review 01/03/2017 [facility] Slide Review (SEE NOTE) 60 [address] [place] [address] [phone] Lymphocytes/leuk 01/03/2017 N2N/CCD Import Lymphocytes/leuk 10.0 Low 20.0 -42.0 NFr Bld Auto NFr Bld Auto MCV RBC Auto 01/03/2017 N2N/CCD Import MCV RBC Auto 88.4 80.9-99.0 Monocytes/leuk 01/03/2017 N2N/CCD Import Monocytes/leuk 9.5 4.3-13.2 NFr Bld Auto NFr Bld Auto Automated 01/03/2017 N2N/CCD Import Automated 27.8 25.9-32.7 erythrocyte mean erythrocyte mean corpuscular corpuscular hemoglobin hemoglobin (mass per erythrocyte) Neutrophils # 01/03/2017 N2N/CCD Import Neutrophils # Bld 8.48 High 1.8- 7.0 Bld Auto Auto Neutrophils/leuk 01/03/2017 N2N/CCD Import Neutrophils/leuk 78.6 High 40.4-72.8 NFr Bld Auto NFr Bld Auto Automated 01/03/2017 N2N/CCD Import Automated 31.4 30.8-34.3 erythrocyte mean erythrocyte mean corpuscular corpuscular hemoglobin hemoglobin concentration measurement (mass/volume) PMV Bld Auto 01/03/2017 N2N/CCD Import PMV Bld Auto 11.1 8.9-12.4 Platelets 01/03/2017 N2N/CCD Import Platelets 242 150-400 [#/volume] in [#/volume] in Blood by Blood by Automated count Automated count BUN SerPl-mCnc 01/03/2017 N2N/CCD Import BUN SerPl-mCnc 7 7-18 Potassium 01/03/2017 N2N/CCD Import Potassium 3.6 3.5-5.1 SerPl-sCnc SerPl-sCnc Anion Gap 01/03/2017 N2N/CCD Import Anion Gap 8 8-16 SerPl-sCnc SerPl-sCnc RDW RBC Auto 01/03/2017 N2N/CCD Import RDW RBC Auto 43.9 3-47 Blood monocytes 01/03/2017 N2N/CCD Import Blood monocytes 1.03 High 0.3- 0.9 automated count automated count (number/volume) (number/volume) RDW RBC Auto-Rto 01/03/2017 N2N/CCD Import RDW RBC Auto-Rto 13.8 11.7- 14.4 Sodium 01/03/2017 N2N/CCD Import Sodium SerPl-sCnc 141 136-145 SerPl-sCnc Unloinc 01/03/2017 N2N/CCD Import Unloinc See Note 61 WBC # Bld Auto 01/03/2017 N2N/CCD Import WBC # Bld Auto 10.8 High 3.1- 10.7 Basophils/leuk 01/03/2017 N2N/CCD Import Basophils/leuk 0.3 0.0-1.1 NFr Bld Auto NFr Bld Auto Basophils 01/03/2017 N2N/CCD Import Basophils 0.03 0.0-0.1 [#/volume] in [#/volume] in Blood by Blood by Automated count Automated count Blood 01/03/2017 N2N/CCD Import Blood 3.96 3.90-5.40 erythrocytes erythrocytes automated count automated count (number/volume) (number/volume) Blood hemoglobin 01/03/2017 N2N/CCD Import Blood hemoglobin 11.0 Low 11.6 -15.8 measurement measurement (mass/volume) (mass/volume) Co2 SerPl-sCnc 01/03/2017 N2N/CCD Import Co2 SerPl-sCnc 25 21-32 BUN/Creat SerPl 01/03/2017 N2N/CCD Import BUN/Creat SerPl 8.7 Calcium 01/03/2017 N2N/CCD Import Calcium 7.9 Low 8.5-10.1 SerPl-mCnc SerPl-mCnc Chloride 01/03/2017 N2N/CCD Import Chloride 108 High 98-107 SerPl-sCnc SerPl-sCnc Urine total 01/02/2017 N2N/CCD Import Urine total Negative Negative bilirubin bilirubin detection by detection by automated test automated test strip Urobilinogen Ur 01/02/2017 N2N/CCD Import Urobilinogen Ur 1.0 0.2-1.0 Strip-aCnc Strip-aCnc pH Ur Strip.auto 01/02/2017 N2N/CCD Import pH Ur Strip.auto 7.5 6.5-7.5 Anaerobic blood 01/02/2017 N2N/CCD Import Anaerobic blood No Growth culture culture Blood Culture 01/02/2017 [facility] Blood Culture (SEE NOTE) [address] Aerobic [place], [place] [id number] [phone] Quantity FROM BROTH N 63 Blood Culture Anaerobic NO GROWTH: FINAL <SEE NOTE> 64 CBS W/Automated 01/02/2017 [facility] White Blood 16.4 K/uL High 3.1-10.7 [address] Count [place], [place] [id number] [phone] Red Blood Count 4.51 M/uL N 3.90-5.40 Hemoglobin 12.8 gm/dL N 11.6-15.8 Hematocrit 39.0 % N 36.0-46.1 Mean Cell Volume 86.5 fl N 80.9-99.0 Mean Corpuscular HGB 28.4 pg N 25.9-32.7 Mean Corpuscular HGB Conc 32.8 g/dL N 30.8-34.3 Platelet Count 304 K/uL N 150-400 Red Cell Distri Width SD 41.7 fl N 3-47 Red Cell Distri Width %CV 13.6 % N 11.7-14.4 Mean Platelet Volume 10.5 fL N 8.9-12.4 Neut% 83.9 % High 40.4-72.8 Lymph % 7.9 % Low 20.0-42.0 [place] % 6.9 % N 4.3-13.2 Eo% 0.9 % N 0.0-6.6 Bas% 0.4 % N 0.0-1.1 Neut# 13.74 K/uL High 1.8-7.0 Lymph # 1.29 K/uL N 1.0-4.0 [place] # 1.13 K/uL High 0.3-0.9 Eos # 0.14 K/uL N 0.0-0.5 Baso # 0.06 K/uL N 0.0-0.1 Slide Review 01/02/2017 [facility] Slide Review (SEE NOTE) 66 [address] [place] [address] [phone] Comprehensive 01/02/2017 [facility] Glucose 121 mg/dL High 74-10 Metabolic Panel [address] [address] [phone] BUN 15 mg/dL N 7-18 Creatinine 1.0 mg/dL N 0.6-1.3 Glom Filtration Rate, Estimate 57 mL/min >60 If >60 mL/min >60 67 BUN/Creat 15.0 ratio Sodium 140 mmol/L N 136-145 Potassium 3.8 mmol/L N 3.5-5.1 Chloride 105 mmol/L N 98-107 Carbon Dioxide 27 mmol/L N 21-32 Anion Gap 8 mEq/L N 8-16 Calcium 8.8 mg/dL N 8.5-10.1 Total Protein 7.5 g/dL N 6.4-8.2 Albumin 3.5 g/dL N 3.4-5.0 Globulin 4.0 g/dL N 1.9-4.3 Alb/Glob 0.9 ratio Bilirubin,Total 0.6 mg/dL N 0.2-1.0 Sgot/Ast 6 U/L Low 15-37 68 SGPT/Alt 15 U/L N 12-78 Alkaline Phosphatase 93 U/L N 45-117 Lactic Acid 01/02/2017 [facility] Lactic Acid 2.1 mmol/L High 0.4-1.9 69 [address] [place] [address] [phone] Lab Reflex >2.0 for Sepsis? Y Alp SerPl-cCnc 01/02/2017 N2N/CCD Import Alp SerPl-cCnc 93 45-117 Alt SerPl-cCnc 01/02/2017 N2N/CCD Import Alt SerPl-cCnc 15 12-78 Albumin SerPl-mCnc 01/02/2017 N2N/CCD Import Albumin SerPl-mCnc 3.5 3.4- 5.0 Albumin/Glob SerPl 01/02/2017 N2N/CCD Import Albumin/Glob SerPl 0.9 Aspartate 01/02/2017 N2N/CCD Import Aspartate 6 Low 15-37 aminotransferase aminotransferase [Enzymatic [Enzymatic activity/vol activity/volume] in Serum or Plasma Bacteria Bld Aerobe 01/02/2017 N2N/CCD Import Bacteria Bld Aerobe No Growth Cult Cult Globulin Ser 01/02/2017 N2N/CCD Import Globulin Ser 4.0 1.9-4.3 Calc-mCnc Calc-mCnc Prot SerPl-mCnc 01/02/2017 N2N/CCD Import Prot SerPl-mCnc 7.5 6.4-8.2 Serum or plasma 01/02/2017 N2N/CCD Import Serum or plasma 0.6 0.2-1.0 total bilirubin total bilirubin measurement (mass/ measurement (mass/volume) Blood Culture 01/02/2017 [facility] Blood Culture NO 70, [address] Aerobic GROWTH: [address] [place] [address] FINAL [phone] <SEE NOTE> Blood Culture Anaerobic NO GROWTH: FINAL <SEE NOTE> 72 Lactic Acid 01/02/2017 [facility] Lactic Acid 1.2 mmol/L N 0.4-1.9 [address] [place], [place] [id number] [phone] Lab Reflex >2.0 for Sepsis? Y Lactate 01/02/2017 N2N/CCD Import Lactate 1.2 0.4-1.9 [Moles/volume] in [Moles/volume] in Serum or Plasma Serum or Plasma Laboratory test 01/02/2017 [facility] Lactic Acid 2.4 mmol/L High 0.4-1.9 73 finding [address] [place] [address] [phone] Ua RFX Micro & 01/02/2017 [facility] Urine Color YELLOW Yellow 74 Culture II [address] [place] [address] [phone] Urine Clarity CLEAR Clear Urine Glucose - Dipstick NEGATIVE mg/dL Negative Urine Bilirubin - Dipstick NEGATIVE Negative Urine Ketone NEGATIVE mg/dL Negative Urine Specific [place] 1.015 N 1.010-1.030 Urine Blood NEGATIVE Negative Urine PH 7.5 N 6.5-7.5 Urine Protein - Dipstick NEGATIVE mg/dL Negative Urine Urobilinogen - Dipstick 1.0 E.U./dL N 0.2-1.0 Urine Nitrite - Dipstick NEGATIVE Negative Urine Leuk Esterase NEGATIVE Negative Source: URINE, CLEAN CAT <SEE NOTE> 75 Color Ur 01/02/2017 N2N/CCD Import Color Ur Yellow Yellow Ketones Ur 01/02/2017 N2N/CCD Import Ketones Ur Negative Negative Strip.auto-mCnc Strip.auto-mCnc Leukocyte esterase 01/02/2017 N2N/CCD Import Leukocyte Negative Negative Ur Ql Strip.auto esterase Ur Ql Strip.auto Nitrite Ur Ql 01/02/2017 N2N/CCD Import Nitrite Ur Ql Negative Negative Strip.auto Strip.auto Prot Ur 01/02/2017 N2N/CCD Import Prot Ur Negative Negative Strip.auto-mCnc Strip.auto-mCnc Specific gravity 01/02/2017 N2N/CCD Import Specific gravity 1.015 1.010- 1.030 of Urine by of Urine by Automated test Automated test strip strip Urine appearance 01/02/2017 N2N/CCD Import Urine appearance Clear Clear determination determination Urine glucose 01/02/2017 N2N/CCD Import Urine glucose Negative Negative measurement by measurement by automated test automated test strip strip (mass/volume) Urine hemoglobin 01/02/2017 N2N/CCD Import Urine hemoglobin Negative Negative detection by detection by automated test automated test strip strip Comprehensive 06/03/2016 [facility] Glucose 84 mg/dL N 74-106 76 Metabolic Panel [address] [place] [address] [phone] BUN 20 mg/dL High 7-18 Creatinine 0.9 mg/dL N 0.6-1.3 Glom Filtration Rate, Estimate >60 mL/min >60 If >60 mL/min >60 77 BUN/Creat 22.2 ratio Sodium 141 mmol/L N 136-145 Potassium 4.1 mmol/L N 3.5-5.1 Chloride 103 mmol/L N 98-107 Carbon Dioxide 28 mmol/L N 21-32 Anion Gap 10 mEq/L N 8-16 Calcium 8.9 mg/dL N 8.5-10.1 Total Protein 6.7 g/dL N 6.4-8.2 Albumin 3.5 g/dL N 3.4-5.0 Globulin 3.2 g/dL N 1.9-4.3 Alb/Glob 1.1 ratio Bilirubin,Total 0.6 mg/dL N 0.2-1.0 Sgot/Ast 9 U/L Low 15-37 78 SGPT/Alt 17 U/L N 12-78 Alkaline Phosphatase 75 U/L N 45-117 CBS W/Automated 06/03/2016 [facility] White Blood 11.4 K/uL High 3.1-10.[address] [place] [address] [phone] Red Blood Count 4.70 M/uL N 3.90-5.40 Hemoglobin 13.2 gm/dL N 11.6-15.8 Hematocrit 41.1 % N 36.0-46.1 Mean Cell Volume 87.4 fl N 80.9-99.0 Mean Corpuscular HGB 28.1 pg N 25.9-32.7 Mean Corpuscular HGB Conc 32.1 g/dL N 30.8-34.3 Platelet Count 332 K/uL N 150-400 Red Cell Distri Width SD 43.5 fl N 3-47 Red Cell Distri Width %CV 13.8 % N 11.7-14.4 Mean Platelet Volume 11.0 fL N 8.9-12.4 Neut% 74.1 % High 40.4-72.8 Lymph % 14.7 % Low 20.0-42.0 [place] % 9.0 % N 4.3-13.2 Eo% 1.8 % N 0.0-6.6 Bas% 0.4 % N 0.0-1.1 Neut# 8.44 K/uL High 1.8-7.0 Lymph # 1.67 K/uL N 1.0-4.0 [place] # 1.02 K/uL High 0.3-0.9 Eos # 0.20 K/uL N 0.0-0.5 Baso # 0.04 K/uL N 0.0-0.1 LDL Cholesterol 06/03/2016 [facility] Cholesterol 225 mg/dL High <200 79 Profile [address] [place] [id number] [phone] Triglycerides 129 mg/dL <150 80 HDL Cholesterol 67 mg/dL >40 81 LDL-Cholesterol 132 mg/dL < 100 82 Slide Review 06/03/2016 [facility] Slide Review . [address] [place], [place] [id number] [phone] Urine Culture 01/23/2016 [facility] Urine Culture URETHRAL PEYMAN [address] [place] [address] [phone] Quantity 10,000 - 50,000 <SEE NOTE> N 85 @[facility] Pat Id: [id number] @[facility] Req #: [id number] Urinalysis With 01/23/2016 [facility] Urine Color YELLOW N Yellow Microscopic [address] [place] [address] [phone] Urine Clarity CLEAR N Clear Urine Glucose - Dipstick NEGATIVE mg/dL N Negative Urine Bilirubin - Dipstick NEGATIVE N Negative Urine Ketone NEGATIVE mg/dL N Negative Urine Specific [place] 1.010 N 1.010-1.030 Urine Blood NEGATIVE N Negative Urine PH 6.5 N 6.5-7.5 Urine Protein - Dipstick NEGATIVE mg/dL N Negative Urine Urobilinogen - Dipstick 0.2 E.U./dL N 0.2-1.0 Urine Nitrite - Dipstick NEGATIVE N Negative Urine Leuk Esterase SMALL Abnormal Negative Urine RBC NONE SEEN rbc/hpf N 0-2 Urine WBC 5-10 wbc/hpf N 0-7 Urine Epithelial Cells FEW /lpf N None Seen Urine Bacteria VERY FEW N None Seen Urine Mucus SMALL N None Seen @[facility] Pat Id: [id number] @[facility] Req #: [id number] Comprehensive Metabolic 01/14/2016 [facility] Glucose 94 mg/dL N 74-106 86 Panel [address] [place] [address] [phone] BUN 9 mg/dL N 7-18 Creatinine 1.0 mg/dL N 0.6-1.3 Glom Filtration Rate, Estimate 57 mL/min N >60 If >60 mL/min N >60 87 BUN/Creat 9.0 ratio N Sodium 139 mmol/L N 136-145 Potassium 3.9 mmol/L N 3.5-5.1 Chloride 106 mmol/L N 98-107 Carbon Dioxide 28 mmol/L N 21-32 Anion Gap 5 mEq/L Low 8-16 Calcium 8.8 mg/dL N 8.5-10.1 Total Protein 7.2 g/dL N 6.4-8.2 Albumin 3.5 g/dL N 3.4-5.0 Globulin 3.7 g/dL N 1.9-4.3 Alb/Glob 0.9 ratio N Bilirubin,Total 0.6 mg/dL N 0.2-1.0 Sgot/Ast 11 U/L Low 15-37 88 SGPT/Alt 20 U/L N 12-78 Alkaline Phosphatase 72 U/L N 45-117 @[facility] Pat Id: [id number] @[facility] Req #: [id number] Is Patient Fasting? Fasting CBC W/Automated Diff 01/14/2016 [facility] White Blood 8.8 K/uL N 3.1-10.[address] Count [place], [place] [id number] [phone] Red Blood Count 4.63 M/uL N 3.90-5.40 Hemoglobin 12.8 gm/dL N 11.6-15.8 Hematocrit 40.2 % N 36.0-46.1 Mean Cell Volume 86.8 fl N 80.9-99.0 Mean Corpuscular HGB 27.6 pg N 25.9-32.7 Mean Corpuscular HGB Conc 31.8 g/dL N 30.8-34.3 Platelet Count 303 K/uL N 155-360 Red Cell Distri Width SD 42.4 fl N 3-47 Red Cell Distri Width %CV 13.9 % N 11.7-14.4 Mean Platelet Volume 10.0 fL N 8.9-12.4 Neut% 74.1 % High 40.4-72.8 Lymph % 13.7 % Low 17.0-46.1 [place] % 8.7 % N 4.3-13.2 Eo% 3.0 % N 0.0-6.6 Bas% 0.5 % N 0.0-1.1 Neut# 6.51 K/uL N 1.8-7.0 Lymph # 1.20 K/uL Low 1.8-7.0 [place] # 0.76 K/uL N 0.3-0.9 Eos # 0.26 K/uL N 0.0-0.5 Baso # 0.04 K/uL N 0.0-0.1 @[facility] Pat Id: [id number] @[facility] Req #: [id number] LDL Cholesterol 01/14/2016 [facility] Cholesterol 202 mg/dL High <200 [address] [place], [place] [id number] [phone] Triglycerides 140 mg/dL N <150 90 HDL Cholesterol 64 mg/dL N >40 91 LDL-Cholesterol 110 mg/dL N < 100 92 @[facility] Pat Id: [id number] @[facility] Req #: [id number] Is Patient Fasting? Fasting Vitamin 01/14/2016 [facility] Vitamin 34.6 N 30.0-100.0 93 D,25-Hydroxy [address] D,25-Hydroxy ng/mL [place], [place] [id number] [phone] @[facility] Pat Id: [id number] @[facility] Req #: [id number] 1 ESCHERICHIA COLI 2 10,000 - 50,000 CFU/mL 3 STREP. AGALACTIAE (BETA GRP B) 4 10,000 - 50,000 CFU/mL 5 PENICILLIN OR AMPICILLIN. 6 STREP. AGALACTIAE (BETA GRP B) 7 50,000 - 100,000 CFU/mL 8 PENICILLIN OR AMPICILLIN. 9 I10 10 URINE, CLEAN CATCH 11 SHAKY CAN'T EAT 12 URINE, CLEAN CATCH 13 SHAKEY, TINGLY SENSATION ON BOTH ARMS, POE 14 Note: Persistent reduction for 3 months or more in an eGFR <60 mL/min/1.73 m2 defines CKD. Patients with eGFR values >/=60 mL/min/1.73 m2 may also have CKD if evidence of persistent proteinuria is present. The original MDRD equation for estimated GFR is not valid for patients less than 18 years of age. Additional information may be found at www.[email or web address]. 15 Values below the stated reference ranges of AST and ALT can be seen in normal populations. Clinical correlation is suggested. 16 POSSIBLE UROGENITAL CONTAMINATION. POSSIBLE UROGENITAL CONTAMINATION. POSSIBLE UROGENITAL CONTAMINATION. 17 URINE, CLEAN CATCH 18 STREP. AGALACTIAE (BETA GRP B) 19 > 100,000 CFU/mL 20 PENICILLIN OR AMPICILLIN. 21 NOT FEELING WELL ALL OVER 22 Note: Persistent reduction for 3 months or more in an eGFR <60 mL/min/1.73 m2 defines CKD. Patients with eGFR values >/=60 mL/min/1.73 m2 may also have CKD if evidence of persistent proteinuria is present. The original MDRD equation for estimated GFR is not valid for patients less than 18 years of age. Additional information may be found at www.[email or web address]. 23 Values below the stated reference ranges of AST and ALT can be seen in normal populations. Clinical correlation is suggested. 24 URINE, CLEAN CATCH 25 R30.0 B37.0 26 MIXED URETHRAL PEYMAN 27 10,000 - 50,000 CFU/mL 28 Method: BD Affirm VPIII DNA Probe Assay 29 UTI, NOT BETTER 30 URINE, CLEAN CATCH 31 Note: Persistent reduction for 3 months or more in an eGFR <60 mL/min/1.73 m2 defines CKD. Patients with eGFR values >/=60 mL/min/1.73 m2 may also have CKD if evidence of persistent proteinuria is present. The original MDRD equation for estimated GFR is not valid for patients less than 18 years of age. Additional information may be found at www.[email or web address]. 32 Values below the stated reference ranges of AST and ALT can be seen in normal populations. Clinical correlation is suggested. 33 Advisor Consultant: [id number] SEE RESULT BELOW Name: DOMINIQUE GOULD : [address]: Bob Mcconnell MD Acct: [id number] Unit: [id number] AGE: 82 Location: [facility] Re02/28/18 SEX: F Status: DEP ER SPEC: [id number] JULIO CESAR: 02/28/[address] [facility] [address]: Bob Mcconnell MD REQ: [id number] RECD: 03/01/18 STATUS: KAMLESH COREA DR: Lucie Griffiths MD _ SOURCE: URINE [facility]: ORDERED: Urine Culture COMMENTS: [id number] Procedure Result Reported Site Urine Culture Final 03/02/18- 1128 ML Organism 1 STREP GROUP B [place] Count 25-50,000 (Moderate) CFU/ML Susceptibility testing of penicillins and other B-lactams approved by FDA for treatment of Streptococcus pyogenes (Group A Strep) and Streptococcus agalactiae (Group B Strep) is not necessary for clinical purposes and need not be done routinely, since as with vancomycin, resistant strains have not been recognized. (CLSI Z542-J08;p.66) Positive isolates will be saved for one week. Please call the Microbiology Laboratory if further susceptibility testing is needed. * ML - Main Lab . END OF REPORT DEPARTMENT OF PATHOLOGY, [address] [place] [address] Rafael Hinojosa M.D. Director RALPH # [id number] RN to be notified Advisor Consultant: [id number] E78.5 38 Vitamin D deficiency has been defined by the [place] [employer] and an Endocrine Society practice guideline as a level of serum 25-OH vitamin D less than 20 ng/mL (1,2). The Endocrine Society went on to further define vitamin D insufficiency as a level between 21 and 29 ng/mL (2). 1. IOM ([place] of [employer]). 2010. Dietary reference intakes for calcium and D. [place]: The National Academies Press. 2. Josephine MF, Nette STUART, Aaron POE, et al. Evaluation, treatment, and prevention of vitamin D deficiency: an Endocrine Society clinical practice guideline. JCEM. 2010; 96(7):1911-30. Performed at: RN - [facility] [address] [id number] Foot Gatherer: Keena Choudhary MD, Phone: [phone] 39 Reference Guidelines*: Desirable: ........... < 200 mg/dL Borderline High: ..... 200-239 mg/dL High: ................ >=240 mg/dL * The National Cholesterol Education Program (NCEP) 40 Reference Guidelines*: Normal: ............. < 150 mg/dL Borderline High: .... 150-199 mg/dL High: ............... 200-499 mg/dL Very High: .......... > 500 mg/dL * Source: National Cholesterol Education Program (NCEP) 41 Reference Guidelines*: Low HDL: ..... < 40 mg/dL Normal: ..... 40-60 mg/dL Desirable: ... > 60 mg/dL *The National Cholesterol Education Program(NCEP) 42 Reference Guidelines*: Optimal:........... <100 mg/dL Near Optimal....... 100-129 mg/dL Borderline High.... 130-159 mg/dL High............... 160-189 mg/dL Very High.......... >=190 mg/dL * Source: National Cholesterol Education Program (NCEP) 43 Note: Persistent reduction for 3 months or more in an eGFR <60 mL/min/1.73 m2 defines CKD. Patients with eGFR values >/=60 mL/min/1.73 m2 may also have CKD if evidence of persistent proteinuria is present. The original MDRD equation for estimated GFR is not valid for patients less than 18 years of age. Additional information may be found at www.[email or web address]. 44 E78.5,J45.20 45 Note: Persistent reduction for 3 months or more in an eGFR <60 mL/min/1.73 m2 defines CKD. Patients with eGFR values >/=60 mL/min/1.73 m2 may also have CKD if evidence of persistent proteinuria is present. The original MDRD equation for estimated GFR is not valid for patients less than 18 years of age. Additional information may be found at www.[email or web address]. 46 Values below the stated reference ranges of AST and ALT can be seen in normal populations. Clinical correlation is suggested. 47 Reference Guidelines*: Desirable: ........... < 200 mg/dL Borderline High: ..... 200-239 mg/dL High: ................ >=240 mg/dL * The National Cholesterol Education Program (NCEP) 48 Reference Guidelines*: Normal: ............. < 150 mg/dL Borderline High: .... 150-199 mg/dL High: ............... 200-499 mg/dL Very High: .......... > 500 mg/dL * Source: National Cholesterol Education Program (NCEP) 49 Reference Guidelines*: Low HDL: ..... < 40 mg/dL Normal: ..... 40-60 mg/dL Desirable: ... > 60 mg/dL *The National Cholesterol Education Program(NCEP) 50 Reference Guidelines*: Optimal:........... <100 mg/dL Near Optimal....... 100-129 mg/dL Borderline High.... 130-159 mg/dL High............... 160-189 mg/dL Very High.......... >=190 mg/dL * Source: National Cholesterol Education Program (NCEP) 51 E78.5 I10 52 Note: Persistent reduction for 3 months or more in an eGFR <60 mL/min/1.73 m2 defines CKD. Patients with eGFR values >/=60 mL/min/1.73 m2 may also have CKD if evidence of persistent proteinuria is present. The original MDRD equation for estimated GFR is not valid for patients less than 18 years of age. Additional information may be found at www.[email or web address]. 53 Values below the stated reference ranges of AST and ALT can be seen in normal populations. Clinical correlation is suggested. 54 Reference Guidelines*: Desirable: ........... < 200 mg/dL Borderline High: ..... 200-239 mg/dL High: ................ >=240 mg/dL * The National Cholesterol Education Program (NCEP) 55 Reference Guidelines*: Normal: ............. < 150 mg/dL Borderline High: .... 150-199 mg/dL High: ............... 200-499 mg/dL Very High: .......... > 500 mg/dL * Source: National Cholesterol Education Program (NCEP) 56 Reference Guidelines*: Low HDL: ..... < 40 mg/dL Normal: ..... 40-60 mg/dL Desirable: ... > 60 mg/dL *The National Cholesterol Education Program(NCEP) 57 Reference Guidelines*: Optimal:........... <100 mg/dL Near Optimal....... 100-129 mg/dL Borderline High.... 130-159 mg/dL High............... 160-189 mg/dL Very High.......... >=190 mg/dL * Source: National Cholesterol Education Program (NCEP) 58 ACUTE DIVERTICULITIS 59 Note: Persistent reduction for 3 months or more in an eGFR <60 mL/min/1.73 m2 defines CKD. Patients with eGFR values >/=60 mL/min/1.73 m2 may also have CKD if evidence of persistent proteinuria is present. The original MDRD equation for estimated GFR is not valid for patients less than 18 years of age. Additional information may be found at www.[email or web address]. 60 Instrument flagged sample for slide review. Less than 10% Bands seen, no other immature WBC's seen. RBC morphology essentially normal. Platelet estimate=Normal 61 Instrument flagged sample for slide review. Less than 10% Bands seen, no other immature WBC's seen. RBC morphology essentially normal. Platelet estimate= Normal 62 GRAM POSITIVE COCCI SEEN ON GRAM STAIN. COAGULASE NEG. STAPHYLOCOCCUS 63 ORGANISM IS OFTEN FOUND A CONTAMINANT. HOLDING ISOLATE IN MICROBIOLOGY LAB. PLEASE CALL [phone] IF FULL ID/OR SUSCEPTIBILITY DESIRED. 64 NO GROWTH: FINAL REPORT 65 ABD PAIN ACUTE DIVERTICULITIS 66 Instrument flagged sample for slide review. Less than 10% Bands seen, no other immature WBC's seen. RBC morphology essentially normal. Platelet estimate=NORMAL 67 Note: Persistent reduction for 3 months or more in an eGFR <60 mL/min/1.73 m2 defines CKD. Patients with eGFR values >/=60 mL/min/1.73 m2 may also have CKD if evidence of persistent proteinuria is present. The original MDRD equation for estimated GFR is not valid for patients less than 18 years of age. Additional information may be found at www.[email or web address]. 68 Values below the stated reference ranges of AST and ALT can be seen in normal populations. Clinical correlation is suggested. 69 SPECIMEN SLIGHTLY HEMOLYZED, INTERPRET WITH CAUTION 70 ACUTE DIVERTICULITIS 71 NO GROWTH: FINAL REPORT 72 NO GROWTH: FINAL REPORT 73 CHECKED CALLED LACTIC TO REW AT 0820 01/02/17 by LAB.AWP 74 ABD PAIN 75 URINE, CLEAN CATCH 76 E78.5 I10 77 Note: Persistent reduction for 3 months or more in an eGFR <60 mL/min/1.73 m2 defines CKD. Patients with eGFR values >/=60 mL/min/1.73 m2 may also have CKD if evidence of persistent proteinuria is present. The original MDRD equation for estimated GFR is not valid for patients less than 18 years of age. Additional information may be found at www.[email or web address]. 78 Values below the stated reference ranges of AST and ALT can be seen in normal populations. Clinical correlation is suggested. 79 Reference Guidelines*: Desirable: ........... < 200 mg/dL Borderline High: ..... 200-239 mg/dL High: ................ >=240 mg/dL * The National Cholesterol Education Program (NCEP) 80 Reference Guidelines*: Normal: ............. < 150 mg/dL Borderline High: .... 150-199 mg/dL High: ............... 200-499 mg/dL Very High: .......... > 500 mg/dL * Source: National Cholesterol Education Program (NCEP) 81 Reference Guidelines*: Low HDL: ..... < 40 mg/dL Normal: ..... 40-60 mg/dL Desirable: ... > 60 mg/dL *The National Cholesterol Education Program(NCEP) 82 Reference Guidelines*: Optimal:........... <100 mg/dL Near Optimal....... 100-129 mg/dL Borderline High.... 130-159 mg/dL High............... 160-189 mg/dL Very High.......... >=190 mg/dL * Source: National Cholesterol Education Program (NCEP) 83 Instrument flagged sample for slide review. Less than 10% Bands seen, no other immature WBC's seen. RBC morphology essentially normal. Platelet estimate=NORMAL 84 N39.0 85 10,000 - 50,000 CFU/mL 86 I10,E78.5,M25.569,M15.0 87 Note: Persistent reduction for 3 months or more in an eGFR <60 mL/min/1.73 m2 defines CKD. Patients with eGFR values >/=60 mL/min/1.73 m2 may also have CKD if evidence of persistent proteinuria is present. The original MDRD equation for estimated GFR is not valid for patients less than 18 years of age. Additional information may be found at www.kdoqi.org. 88 Values below the stated reference ranges of AST and ALT can be seen in normal populations. Clinical correlation is suggested. 89 Reference Guidelines*: Desirable: ........... < 200 mg/dL Borderline High: ..... 200-239 mg/dL High: ................ >=240 mg/dL * The National Cholesterol Education Program (NCEP) 90 Reference Guidelines*: Normal: ............. < 150 mg/dL Borderline High: .... 150-199 mg/dL High: ............... 200-499 mg/dL Very High: .......... > 500 mg/dL * Source: National Cholesterol Education Program (NCEP) 91 Reference Guidelines*: Low HDL: ..... < 40 mg/dL Normal: ..... 40-60 mg/dL Desirable: ... > 60 mg/dL *The National Cholesterol Education Program(NCEP) 92 Reference Guidelines*: Optimal:........... <100 mg/dL Near Optimal....... 100-129 mg/dL Borderline High.... 130-159 mg/dL High............... 160-189 mg/dL Very High.......... >=190 mg/dL * Source: National Cholesterol Education Program (NCEP) 93 Vitamin D deficiency has been defined by the [place] [employer] and an Endocrine Society practice guideline as a level of serum 25-OH vitamin D less than 20 ng/mL (1,2). The Endocrine Society went on to further define vitamin D insufficiency as a level between 21 and 29 ng/mL (2). 1. IOM ([place] of [employer]). 2010. Dietary reference intakes for calcium and D. [place]: The National Academies Press. 2. Josephine GARCÍA, Nette STUART, Aaron POE, et al. Evaluation, treatment, and prevention of vitamin D deficiency: an Endocrine Society clinical practice guideline. JCEM. 2010; 96(7):1911-30. Performed at: RN - [facility] [address] [id number] Foot Gatherer: Keena Choudhary MD, Phone: [phone] Procedures Date Code Description Status 07/15/2018 [id number] Mammogram Completed 07/08/2018 48954 Measurement Post Voiding Residual Urine By Completed Ultrasound,Non-Imaging 06/25/2018 75648 Brief Emotional/Behav Assessment W/ Scoring Doc Per Completed Standard Inst 04/13/2017 [id number] Mammogram Completed 08/13/2016 87996 Pressurized/Non-Pressurized Inhalation Treatment,Acute Completed Obstructio 06/26/2015 [id number] Colonoscopy Completed 03/13/2015 [id number] Mammogram Completed 10/04/2014 05188 Radiology, Wrist Complete Completed 10/04/2014 83358 Radiology, Wrist Complete Completed 08/21/2014 53315 Radiology, Wrist Complete Completed 08/04/2014 88511 Neuroplasty median nerve at carpal tunnel Completed 08/04/2014 83457 Neuroplasty median nerve at carpal tunnel Completed 08/04/2014 30765 ORIF distal radial intra articular fracture w/3 or Completed more fragments 08/04/2014 47735 ORIF distal radial intra articular fracture w/3 or Completed more fragments 08/04/2014 82423 Anesthesia, Lower Arm Surgery Open/Surg Completed Arthroscopic/Endoscopic 08/02/2014 71952 Application of Cast short arm Completed 08/02/2014 72122 Application of Cast short arm Completed 08/02/2014 82832 Radiology, Wrist Complete Completed 08/02/2014 54062 Radiology, Wrist Complete Completed 08/01/2014 17740 Long Arm Cast Completed 07/31/2014 24347 Radiology, Wrist Complete Completed 07/31/2014 54096 Radiology, Wrist Complete Completed 07/19/2014 90448 Fracture distal radial-closed Completed 12/19/2013 [id number] Mammogram Completed 04/13/2013 [id number] Bone Mineral Density Test Completed 05/16/2010 37525 Stress Test Interpre And Report Only Completed 05/16/2010 85648 Stress Test Physician Super Only Completed Encounters Type Date Location Provider Dx Diagnosis Office Visit 07/22/2018 Urology [facility] N39.0 Urinary tract 1:15p AURE Turner infection, site not specified Office Visit 07/08/2018 Urology Himanshu Allison, N39.0 Urinary tract 1:30p M.DJuan R infection, site not specified Office Visit 06/25/2018 Primary Care Yannick Mancia.9 Anxiety disorder, 11:00a Office Donna, MS, unspecified 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, 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 G25.0 Essential tremor I10 Essential (primary) hypertension R20.2 Paresthesia of skin E78.5 Hyperlipidemia, unspecified N95.1 Menopausal and female climacteric states R82.998 Other abnormal findings in urine Office Visit 06/04/2018 3:00p Primary Care Donna Mancia, R20.2 Paresthesia of Office MS, 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, CNM skin R42 Dizziness and giddiness I10 Essential (primary) hypertension R53.83 Other fatigue R51 Headache R82.90 Unspecified abnormal findings in urine R63.4 Abnormal weight loss Office Visit 04/14/2018 11:00a Primary Care Elian Dunbar1.9 Anxiety disorder, Office Cherelle Estevez PA unspecified Office Visit 03/17/2018 10:30a Primary Care Manjinder N81.10 Cystocele, Office Cherelle Estevez PA unspecified F41.9 Anxiety disorder, unspecified R11.0 Nausea Office Visit 03/12/2018 1:30p Primary Care Donna Mancia, MS, R30.0 Dysuria Office 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, CNM B37.3 Candidiasis of vulva and vagina Office Visit 03/03/2018 1:45p Primary Care Manjinder N39.0 Urinary tract Office AURE Cole infection, site not specified R11.0 Nausea Office Visit 01/28/2018 11:00a Primary Care Lucie Griffiths F41.9 Anxiety disorder, Office MD unspecified E78.5 Hyperlipidemia, unspecified G25.0 Essential tremor I10 Essential (primary) hypertension Z85.3 Personal history of malignant neoplasm of breast Office Visit 11/06/2017 11:40a Primary Care Lucie Griffiths F41.9 Anxiety disorder, Office MD unspecified I10 Essential (primary) hypertension Office Visit 09/25/2017 11:20a Primary Care Lucie Griffiths, E78.5 Hyperlipidemia, Office MD unspecified J45.20 Mild intermittent asthma, uncomplicated I10 Essential (primary) hypertension F41.9 Anxiety disorder, unspecified G25.0 Essential tremor Office Visit 03/27/2017 11:20a Primary Care Lucie Griffiths, E78.5 Hyperlipidemia, Office MD unspecified I10 Essential (primary) hypertension J45.20 Mild intermittent asthma, uncomplicated Office Visit 03/17/2017 2:00p Primary Care Marcos Ojeda06.9 Acute upper Office Mike Leslie respiratory infection, unspecified Office Visit 01/22/2017 11:20a Primary Care Lucie Griffiths MD K57.93 Dvtrcli of Office intest, part unsp, 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 Z23 Encounter for immunization F41.9 Anxiety disorder, unspecified Office Visit 01/06/2017 1:00p Primary Care Adelina Rhodes B37.3 Candidiasis of Office MANDY Jeo vulva and vagina K64.9 Unspecified hemorrhoids 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, part unsp, 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 Z23 Encounter for immunization Office Visit 11/21/2016 10:40a Primary Care Lucie Griffiths MD M54.2 Cervicalgia Office J45.20 Mild intermittent asthma, uncomplicated R60.0 Localized edema Office Visit 08/13/2016 11:00a Primary Care Lucie Griffiths, J45.41 Moderate persistent Office MD asthma with (acute) exacerbation Office Visit 08/04/2016 1:30p Primary Care Adelina Rhodes J06.9 Acute upper Office MANDY Joe respiratory infection, unspecified R51 Headache Office Visit 06/18/2016 11:40a Primary Care Lucie Griffiths, I10 Essential ( primary) Office MD hypertension E78.5 Hyperlipidemia, unspecified R21 Rash and other nonspecific skin eruption M54.2 Cervicalgia Office Visit 01/23/2016 11:00a Primary Care Lucie Griffiths, I10 Essential ( primary) Office MD hypertension E78.5 Hyperlipidemia, unspecified M15.0 Primary generalized (osteo)arthritis N39.0 Urinary tract infection, site not specified R21 Rash and other nonspecific skin eruption B35.9 Dermatophytosis, unspecified Z23 Encounter for immunization Office Visit 08/29/2014 11:15a Orthopaedic Office Hanh, 813.42 FX Radius MD Wendy (Alone) Distal End Other Closed Office Visit 08/09/2014 2:15p Orthopaedic Office Hanh, V54.89 Aftercare, MD Wendy Orthopedic Other Plan of Treatment Future Appointment(s):10/12/2018 2:15 pm - Himanshu Allison M.D. at [id number] 11:30 am - Donna Mancia MS, 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, CNM at Primary Care [id number] - [facility], PAN39.0 Urinary tract infection, site not specifiedNew Labs:Urine Culture, Ordered: 07/22/18Culture Urine, Ordered: Comments:Reculture her urine. We will hold with antibiotics unless she becomes symptomatic. Should she become symptomatic she was given a handwritten instructions on collecting a urine specimen, dropping it off at a local lab, at the beginning ampicillin 500 mg daily x2 and then twice a day provided she has no side effects by Day 3. Prescription Pharmacy. The patient will pay [place] for the ampicillin because her insurance does not cover ampicillin
--- OUTSIDE RECORDS SUMMARY | 2018-08-02 11:20 | XMS REPORT | Continuity of Care Document ---
:1935 External Reference #:[id number] Author Name Himanshu Allison M.D. Address [address] [facility] [address] [place] [address] Care Team Providers Name Role Phone Lucie Griffiths MD Care Team Information [employer] Resource Specialist Unavailable Lucie Griffiths MD Primary Care Physician Unavailable Payers Date Identification Numbers Payment Provider Subscriber Policy Number: [id number] Medicare Dominique Gould PayID: [id number] [address] [place] [address] Policy Number: [id number] [facility] Dominique Gould PayID: [id number] [address] [place] [address] Advance Directives Description No Information Available Problems [...] Use Never Used Drugs Smoking Status Reviewed: 07/02/18 Patient denies history of smoking Allergies, Adverse Reactions, Alerts Date Description Reaction Status Severity Comments 07/19/2014 Sulfa Drugs Active 08/04/2014 Cephalexin Active 07/19/2014 NKDA Inactive Medications Medication Date Status Form Strength Qnty SIG Indications Ordering Provider Propranolol HCL 06/26/19 Active Tablets 10mg 60tab [...] 16 s every Adenike evening e, MS, ECHO VASC TECH-C, CNM Losartan 10/23/19 Active Tablets 100mg 90tab take 1 Gagen, Potassium 16 s tablet by Adenike mouth once e, MS, daily ECHO VASC TECH-C, CNM Vitamin D-3 Active Capsules 1000Unit 2 tabs qd Unknown 00 Asmanex Active Aerosol 220mcg/In 3unit 1 puff Aye, Twisthaler 60 00 h s twice MD Lucie Metered Doses daily Amlodipine Active Tablets 5mg 90tab 1 by mouth Gagen, Besylate 00 s every day Adenike e MS, ECHO VASC TECH-C, CNM Omeprazole Active Capsules 20mg 90cap 1 tab by Gagen, 00 DR s mouth Adenike every day e, MS, 30 min ECHO VASC TECH-C, before CNM breakfast Levofloxacin 06/08/19 Hx Tablets 250mg 3tabs Take [...] 02/02/20 inhaled e, MS, 18 twice a ECHO VASC TECH-C, day CNM Fluoxetine HCL 01/29/20 Hx Tablets [...] B37.3 Smiley, 17 - daily x 1 Kenji, Unknown day, M.D. repeat on second day [...] mouth J06.9 Smiley, 17 - s three Kenij, Unknown times a M.D. day x 7 days Acidophilus 08/05/19 Hx Tablets 90tab 1 by mouth J06.9 Smiley, Probiotic 17 - s every day Kenji, Unknown x 7 days M.D. Robitussin 08/05/19 Hx Liquid 20-400mg/ 237ml as J06.9 Smiley, Cough & Chest 17 - 20ML directed Kenji, Congestion DM Unknown M.D. Adult Saline Nasal 08/05/19 Hx Solution 0.65% 135ml 2 sprays J06.9 Smiley, Capay 17 - every 2 Kenji, Unknown hours [...] area twice daily Nystatin 01/23/20 Hx Powder [id number] 60gm apply B35.9 Aye, 16 - t/GM [...] 6 Neftaly, 15 - s hours Wong Gomez 08/01/19 DO 15 Triamcinolone Hx Ointment 0.5% Unknown Acetonide - 10/23/19 16 Ketoconazole Hx Cream 2% Unknown - 10/23/19 16 Albuterol Hx Nebulizer (2.5mg/3M Unknown Sulfate 00 - L) 0.083% Unknown Losartan Hx Tablets 100-12.5m Unknown Potassium/A[place]ora 00 - g chlorothiazide 10/23/19 16 Ventolin HFA Hx Aerosol 108(90Bas 24gm 1-2 puffs Aye, 00 - e) inhaled MD Lucie 03/27/20 mcg/Act every 17 4-6hrs as needed Alendronate Hx Tablets 70mg 12tab 1 by mouth Aye, Sodium 00 - s every week MD Lucie 06/26/19 19 Anastrozole Hx Tablets 1mg Unknown - 10/23/19 16 Simvastatin Hx Tablets 40mg Unknown - 10/23/19 16 Metronidazole Hx Tablets 500mg take [...] Code Status Date Vaccine Reaction Lot # [id number] Given 01/29/2018 Influenza High Dose 26850 Given 01/06/2017 Influenza Virus Vaccine Quadrivalent Iiv4 none [id number] Split Preser Free Id [id number] Given 01/23/2016 Influenza Vaccine (Fluzone) Age 3 And [id number] Older Vital Signs Date Vital Result Comment 07/08/2018 1:32pm BP Systolic 132 mmHg BP Diastolic 64 mmHg Body Temperature 98.2 F Heart Rate 62 /min Respiratory Rate 16 /min Height 60.5 inches 5'0.50" Weight 179.00 lb BMI (Body Mass Index) 34.4 kg/m2 BSA (Body Surface Area) 1.79 m2 [place] body weight in kilograms 47 kg O2 [...] kg/m2 BSA (Body Surface Area) 1.80 m2 [place] body weight in kilograms 47 kg O2 [...] kg/m2 BSA (Body Surface Area) 1.79 m2 [place] body weight in kilograms 47 kg O2 % BldC Oximetry 97 % ra 04/14/2018 11:00am BP Systolic Sitting Right Arm 138 mmHg BP Diastolic Sitting Right Arm 70 mmHg Body Temperature 97.9 F Heart Rate 70 /min Respiratory Rate 18 /min Height 60.5 inches 5'0.50" Weight 188.00 lb BMI (Body Mass Index) 36.1 kg/m2 BSA (Body Surface Area) 1.83 m2 [place] body weight in kilograms 47 kg 03/17/2018 10:35am BP Systolic Sitting Right Arm 151 mmHg BP Diastolic Sitting Right Arm 81 mmHg Body Temperature 98.2 F Heart Rate 80 /min Height 60.5 inches 5'0.50" Weight 185.00 lb BMI (Body Mass Index) 35.5 kg/m2 BSA (Body Surface Area) 1.82 m2 [place] body weight in kilograms 47 kg O2 % BldC Oximetry 98 % 03/12/2018 1:40pm BP Systolic Sitting Right Arm 118 mmHg BP Diastolic Sitting Right Arm 60 mmHg Body Temperature 99.8 F Heart Rate 71 /min reg Respiratory Rate 24 /min Height 60.5 inches 5'0.50" Weight 187.00 lb BMI (Body Mass Index) 35.9 kg/m2 BSA (Body Surface Area) 1.83 m2 [place] body weight in kilograms 47 kg O2 % BldC Oximetry 96 % ra 03/03/2018 1:51pm BP Systolic Sitting Right Arm 132 mmHg BP Diastolic Sitting Right Arm 70 mmHg Body Temperature 98.1 F Heart Rate 64 /min reg Respiratory Rate 18 /min Height 60.5 inches 5'0.50" Weight 187.00 lb BMI (Body Mass Index) 35.9 kg/m2 BSA (Body Surface Area) 1.83 m2 [place] body weight in kilograms 47 kg O2 % BldC Oximetry 97 % ra 01/28/2018 10:50am BP Systolic 140 mmHg recheck 137/65 BP Diastolic 53 mmHg recheck 137/65 Body Temperature 96.8 F Heart Rate 71 /min Respiratory Rate 18 /min Height 60.5 inches 5'0.50" Weight 192.38 lb BMI (Body Mass Index) 36.9 kg/m2 BSA (Body Surface Area) 1.85 m2 [place] body weight in kilograms 47 kg O2 % BldC Oximetry 97 % 11/06/2017 11:39am BP Systolic Sitting Right Arm 145 mmHg Zelda 127/74 BP Diastolic Sitting Right Arm 73 mmHg Zelda 127/74 Body Temperature 97.3 F Heart Rate 64 /min Respiratory Rate 24 /min Height 60.5 inches 5'0.50" Weight 193.00 lb BMI (Body Mass Index) 37.1 kg/m2 BSA (Body Surface Area) 1.85 m2 [place] body weight in kilograms 47 kg O2 % BldC Oximetry 96 % 09/25/2017 11:20am BP Systolic 122 mmHg BP Diastolic 80 mmHg Body Temperature 99.2 F Heart Rate 81 /min Respiratory Rate 20 /min Height 60.5 inches 5'0.50" Weight 193.25 lb BMI (Body Mass Index) 37.1 kg/m2 BSA (Body Surface Area) 1.85 m2 [place] body weight in kilograms 47 kg O2 % BldC Oximetry 95 % 03/27/2017 11:23am BP Systolic 159 mmHg recheck 138/75 BP Diastolic 79 mmHg recheck 138/75 Heart Rate 90 /min Respiratory Rate 14 /min Height 60.5 inches 5'0.50" Weight 191.25 lb BMI (Body Mass Index) 36.7 kg/m2 BSA (Body Surface Area) 1.84 m2 [place] body weight in kilograms 47 kg O2 % BldC Oximetry 97 % 03/17/2017 1:52pm BP Systolic 157 mmHg BP Diastolic 73 mmHg Body Temperature 99.1 F Heart Rate 77 /min Respiratory Rate 14 /min Height 60.5 inches 5'0.50" [place] body weight in kilograms 47 kg O2 % BldC Oximetry 97 % 01/22/2017 11:00am BP Systolic Sitting Right Arm 144 mmHg BP Diastolic Sitting Right Arm 74 mmHg Body Temperature 99.6 F Heart Rate 84 /min Respiratory Rate 16 /min Height 60.5 inches 5'0.50" Weight 199.00 lb BMI (Body Mass Index) 38.2 kg/m2 BSA (Body Surface Area) 1.87 m2 [place] body weight in kilograms 47 kg 01/06/2017 12:52pm BP Systolic 139 mmHg BP Diastolic 71 mmHg Heart Rate 79 /min Respiratory Rate 18 /min Height 60.5 inches 5'0.50" Weight 207.38 lb BMI (Body Mass Index) 39.8 kg/m2 BSA (Body Surface Area) 1.91 m2 [place] body weight in kilograms 47 kg O2 % BldC Oximetry 96 % 11/21/2016 10:29am BP Systolic Sitting Left Arm 152 mmHg BP Diastolic Sitting Left Arm 70 mmHg Heart Rate 71 /min Respiratory Rate 20 /min Height 60.5 inches 5'0.50" Weight 203.12 lb BMI (Body Mass Index) 39.0 kg/m2 BSA (Body Surface Area) 1.89 m2 [place] body weight in kilograms 47 kg 08/13/2016 [...] Test Result H/L Range Note Urine Culture 07/08/2018 [facility] Urine Culture STREP. Abnormal 1 [address] <[place] [address] NOTE> [phone] Quantity 50,000 - 100,000 <SEE NOTE> 2 Recommended Therapy: PENICILLIN OR AM <SEE NOTE> 3 [id number] 07/08/2018 [facility] Penicillin G <=0.12 S [address] [place] [address] [phone] Tetracycline >=16 R Ampicillin <=0.25 S Moxifloxacin 0.5 S Levofloxacin 0.5 S Vancomycin <=0.5 S Urine Dipstick 07/08/2018 [facility] Ua Color Yellow Yellow Ua Clarity Clear Clear Ua Leuko 500 High Negative Ua Nitrite Negative Negative Ua Urobilinogen 0.2 0.2 - 1.0 E.U./dL Ua Protein Negative Negative Ua PH 6.0 Low 6.5-7.5 Ua Blood Negative Negative Ua Specific [place] 1.015 1.010-1.030 Ua Ketones Negative Negative Ua Bilirubin Negative Negative Ua Glucose Negative Negative Ua RFX Micro & Culture 06/25/2018 [facility] Urine Color YELLOW Yellow 4 II [address] [place] [address] [phone] Urine Clarity CLEAR Clear Urine Glucose - Dipstick NEGATIVE mg/dL Negative Urine Bilirubin - Dipstick NEGATIVE Negative Urine Ketone NEGATIVE mg/dL Negative Urine Specific [place] <=1.005 Low 1.010-1.030 Urine Blood NEGATIVE Negative [...] Seen Source: URINE, CLEAN CAT <SEE NOTE> 5 Urine Dipstick 06/25/2018 [facility] Ua Color yellow Yellow Ua Clarity clear Clear Ua Leuko 3+ High Negative Ua Nitrite negative Negative Ua Urobilinogen negative Low 0.2 - 1.0 E.U./dL Ua Protein negative Negative Ua PH 6.5 6.5-7.5 Ua Blood negative Negative Ua Specific [place] 1.010 1.010-1.030 Ua Ketones negative Negative Ua Bilirubin negative Negative Ua Glucose negative Negative Serum or plasma 06/18/2018 N2N/CCD Import Serum or plasma 101 98-107 chloride measurement chloride measurement Co2 SerPl-sCnc 06/18/2018 N2N/CCD Import Co2 SerPl-sCnc [...] or plasma 76 45-117 alkaline phosphatase alkaline phosphatase measurement ( measurement (enzymatic activity/volume) Serum or plasma 06/18/2018 N2N/CCD Import Serum or plasma <0.015 troponin i.cardiac troponin i.cardiac measurement (ma measurement (mass/volume) Ua RFX Micro & 06/18/2018 [facility] Urine Color YELLOW Yellow 6 Culture II [address] [place] [address] [phone] Urine Clarity CLEAR Clear Urine Glucose - Dipstick NEGATIVE mg/dL Negative Urine Bilirubin - Dipstick NEGATIVE Negative Urine Ketone NEGATIVE mg/dL Negative Urine Specific [place] 1.010 N 1.010-1.030 Urine Blood NEGATIVE Negative Urine PH 6.0 Low 6.5-7.5 Urine Protein - Dipstick NEGATIVE mg/dL Negative Urine Urobilinogen - Dipstick 0.2 E.U./dL N 0.2-1.0 Urine Nitrite - Dipstick NEGATIVE Negative Urine Leuk Esterase NEGATIVE Negative Source: URINE, CLEAN CAT <SEE NOTE> 7 Urine color 06/18/2018 N2N/CCD Import Urine color [...] Automated 0.5 0.0-6.6 eosinophil % eosinophil % Serum or plasma 06/18/2018 N2N/CCD Import [...] measurement measurement (mass/volum (mass/volume) Serum or plasma 06/18/2018 N2N/CCD Import Serum or plasma 10 7-18 urea nitrogen urea nitrogen measurement measurement (mass/vo (mass/volume) Automated 06/18/2018 N2N/CCD Import Automated 0.4 0.0-1.1 basophil % basophil % Absolute 06/18/2018 N2N/CCD Import Absolute 9.67 High 1.8-7.0 neutrophil count neutrophil count Automated blood 06/18/2018 N2N/CCD Import Automated blood 2.02 1.0-4.0 lymphocyte count lymphocyte count (number/volume) (number/volume) Blood monocytes 06/18/2018 N2N/CCD Import Blood monocytes 1.16 High 0.3- 0.9 automated count automated count (number/volume) (number/volume) Serum or plasma 06/18/2018 N2N/CCD Import Serum or plasma 95 74-106 glucose glucose measurement measurement (mass/volume) (mass/volume) Unloinc 06/18/2018 N2N/CCD Import Unloinc . Automated blood 06/18/2018 N2N/CCD Import Automated blood 0.05 0.0-0.1 basophil count basophil count (number/volume) (number/volume) Automated blood 06/18/2018 N2N/CCD Import Automated blood 0.07 0.0-0.5 eosinophil count eosinophil count Comprehensive 06/03/2018 [facility] Glucose 111 mg/dL High 74-106 8 Metabolic Panel [address] [place], [place] [id number] [phone] BUN 15 mg/dL N 7-18 Creatinine 1.1 mg/dL N 0.6-1.3 Glom Filtration Rate, Estimate 51 mL/min >60 If >60 mL/min >60 9 BUN/Creat 13.6 ratio Sodium 138 mmol/L N [...] N 0.2-1.0 Sgot/Ast 12 U/L Low 15-37 10 SGPT/Alt 16 U/L N 12-78 Alkaline Phosphatase 82 U/L N 45-117 CBC W/Automated 06/03/2018 [facility] White Blood 11.7 K/uL High 3.1-10.[address] [place] [address] [phone] Red Blood Count 4.50 M/uL N 3.90-5.40 [...] 40.4-72.8 Lymph % 12.9 % Low 20.0-42.0 [place] % 7.4 % N 4.3-13.2 Eo% 0.9 % N 0.0-6.6 Bas% 0.3 % N 0.0-1.1 Neut# 9.20 K/uL High 1.8-7.0 Lymph # 1.51 K/uL N 1.0-4.0 [place] # 0.87 K/uL N 0.3-0.9 Eos # [...] by detection by light microscopy light microscopy Blood platelet 06/03/2018 N2N/CCD Import Blood platelet Normal adequacy adequacy detection by detection by light microsc light microscopy Slide Review 06/03/2018 [facility] Slide Review DIFF ORDERED [address] [place] [address] [phone] Differential-WBC 06/03/2018 [facility] Total Cells 100 #CELLS Confirm [address] [place] [address] [phone] Band% 1 % N 0-8 Neutrophils% 74 % High 33-73 Lymph% 20 % N 20-42 Atypical Lymph% 1 % N 0-7 Monocyte% 3 % N 0-10 Eosinophil% 1 % N 0-5 Platelet Estimate NORMAL Polychromasia 0-1+ Ua RFX Micro & Culture 06/03/2018 [facility] Urine Color YELLOW Yellow II [address] [place], [place] [id number] [phone] Urine Clarity SL CLOUDY Clear Urine Glucose - Dipstick NEGATIVE mg/dL Negative Urine Bilirubin - Dipstick NEGATIVE Negative Urine Ketone NEGATIVE mg/dL Negative Urine Specific [place] 1.010 N 1.010-1.030 Urine Blood NEGATIVE Negative Urine PH 7.0 N 6.5-7.5 Urine Protein - Dipstick NEGATIVE mg/dL Negative Urine Urobilinogen - Dipstick 0.2 E.U./dL N 0.2-1.0 Urine Nitrite - Dipstick NEGATIVE Negative Urine Leuk Esterase LARGE Abnormal Negative Urine RBC NONE SEEN rbc/hpf 0-2 Urine WBC 2-5 wbc/hpf 0-7 Urine Epithelial Cells MANY /lpf None Seen 11 Urine Bacteria MODERATE Abnormal None Seen Urine Amorph Sediment SMALL Negative Source: URINE, CLEAN CAT <SEE NOTE> 12 Urine Culture 06/03/2018 [facility] Urine Culture STREP. Abnormal 13 [address] [facility] [address] <[place] [address] NOTE> [phone] Quantity > 100,000 CFU/mL 14 Recommended Therapy: PENICILLIN OR AM <SEE NOTE> 15 Urine Culture URETHRAL PEYMAN Quantity < 10,000 CFU/mL Strep. Agalactiae (Beta GRP 06/03/2018 [facility] Penicillin G <=0.12 S B) [address] [place] [address] [phone] Tetracycline >=16 R Ampicillin <=0.25 S Moxifloxacin 0.5 S Levofloxacin 1 S Vancomycin <=0.5 S Manual blood 06/03/2018 N2N/CCD Import Manual blood 3 0-10 monocytes/100 monocytes/100 leukocytes leukocytes Manual blood 06/03/2018 N2N/CCD Import Manual blood 1 0-7 variant lymphocytes variant as percentage of lymphocytes as percentage of leukocytes Manual blood 06/03/2018 N2N/CCD Import Manual blood 20 20-42 lymphocytes/100 lymphocytes/100 leukocytes leukocytes Manual blood 06/03/2018 N2N/CCD Import Manual blood 74 High 33-73 segmented segmented neutrophils/100 neutrophils/100 leukocytes leukocytes Blood total cell 06/03/2018 N2N/CCD Import Blood total cell 100 count count Manual blood band 06/03/2018 N2N/CCD Import Manual [...] blood 10 0-10 monocytes/100 monocytes/100 leukocytes leukocytes Ua RFX Micro & 03/15/2018 [facility] Urine Color YELLOW Yellow 16 Culture II [address] [place], [place] [address] [phone] Urine Clarity CLEAR Clear Urine Glucose - Dipstick NEGATIVE mg/dL Negative Urine Bilirubin - Dipstick NEGATIVE Negative Urine Ketone NEGATIVE mg/dL Negative Urine Specific [place] 1.010 N 1.010-1.030 Urine Blood NEGATIVE Negative [...] Source: URINE, CLEAN CAT <SEE NOTE> 17 Comprehensive Metabolic 03/15/2018 [facility] Glucose 114 mg/dL High 74-106 Panel [address] [place], [place] [id number] [phone] BUN 11 mg/dL N 7-18 Creatinine 1.0 mg/dL N 0.6-1.3 Glom Filtration Rate, Estimate 56 mL/min >60 If >60 mL/min >60 18 BUN/Creat 11.0 ratio Sodium 139 mmol/L N [...] N 0.2-1.0 Sgot/Ast 8 U/L Low 15-37 19 SGPT/Alt 16 U/L N 12-78 Alkaline Phosphatase 67 U/L N 45-117 Blood microcytes 03/15/2018 N2N/CCD Import Blood microcytes 0-1+ detection by detection by light microscopy light microscopy pH Ur Strip.auto 03/15/2018 N2N/CCD Import pH Ur Strip.auto 6.0 Low 6.5- 7.5 Urobilinogen Ur 03/15/2018 N2N/CCD Import Urobilinogen Ur 0.2 0.2-1.0 Strip-aCnc Strip-aCnc Urine total 03/15/2018 N2N/CCD Import Urine total Negative Negative bilirubin bilirubin detection by detection by automated test automated test strip Urine hemoglobin 03/15/2018 N2N/CCD Import Urine hemoglobin Negative Negative detection by detection by automated test automated test strip strip Urine glucose 03/15/2018 N2N/CCD Import Urine glucose Negative Negative measurement by measurement by automated test automated test strip strip (mass/volume) Urine appearance 03/15/2018 N2N/CCD Import Urine appearance Clear Clear determination determination Unloinc 03/15/2018 N2N/CCD Import Unloinc Diff Ordered Specific gravity 03/15/2018 N2N/CCD Import Specific gravity 1.010 1.010- 1.030 of Urine by of Urine by Automated test Automated test strip strip Serum sodium 03/15/2018 N2N/CCD Import Serum sodium 139 136-145 measurement measurement Serum or plasma 03/15/2018 N2N/CCD Import Serum or plasma 11.0 urea urea nitrogen/creatini nitrogen/creatini ne mass rati ne mass ratio Serum or plasma 03/15/2018 N2N/CCD Import Serum or plasma 11 7-18 urea nitrogen urea nitrogen measurement measurement (mass/vo (mass/volume) Serum or plasma 03/15/2018 N2N/CCD Import Serum or plasma 0.5 0.2-1.0 total bilirubin total bilirubin measurement measurement (mass/ (mass/volume) Serum or plasma 03/15/2018 N2N/CCD Import Serum or plasma 7.0 6.4-8.2 protein protein measurement measurement (mass/volume) (mass/volume) Serum or plasma 03/15/2018 N2N/CCD Import Serum or plasma 114 High 74- 106 glucose glucose measurement measurement (mass/volume) (mass/volume) Bacteria 03/15/2018 N2N/CCD Import Bacteria Few None Seen detection in detection in urine sediment by urine sediment by light micr light microscopy Automated urine 03/15/2018 N2N/CCD Import Automated urine None Seen 0-2 sediment sediment erythrocyte count erythrocyte count by micr by microscopy (number/high power field) Automated 03/15/2018 N2N/CCD Import Automated 85.2 80.9-99.0 erythrocyte mean erythrocyte mean corpuscular corpuscular volume volume Automated 03/15/2018 N2N/CCD Import Automated 31.7 30.8-34.3 erythrocyte mean erythrocyte mean corpuscular corpuscular hemoglobin hemoglobin concentration measurement (mass/volume) Automated 03/15/2018 N2N/CCD Import Automated 27.0 25.9-32.7 erythrocyte mean erythrocyte mean corpuscular corpuscular hemoglobin hemoglobin (mass per erythrocyte) Automated blood 03/15/2018 N2N/CCD Import Automated blood 10.0 8.9-12.4 platelet mean platelet mean volume volume measurement measurement Automated blood 03/15/2018 N2N/CCD Import Automated blood 302 155-360 platelet count platelet count Automated blood 03/15/2018 N2N/CCD Import Automated blood 1.67 1.0-4.0 lymphocyte count lymphocyte count (number/volume) (number/volume) Automated blood 03/15/2018 N2N/CCD Import Automated blood 39.1 36.0- 46.1 hematocrit hematocrit (volume fraction) (volume fraction) Automated blood 03/15/2018 N2N/CCD Import Automated blood 0.11 0.0-0.5 eosinophil count eosinophil count Automated blood 03/15/2018 N2N/CCD Import Automated blood 0.04 0.0-0.1 basophil count basophil count (count/volume) (count/volume) Anion Gap 03/15/2018 N2N/CCD Import Anion Gap 9 8-16 SerPl-sCnc SerPl-sCnc Amorphous 03/15/2018 N2N/CCD Import Amorphous Small Negative sediment sediment detection in detection in urine sediment by urine sediment by light microscopy Albumin/Glob 03/15/2018 N2N/CCD Import Albumin/Glob 0.9 SerPl SerPl Alt SerPl-cCnc 03/15/2018 N2N/CCD Import Alt SerPl-cCnc 16 Differential-WBC 03/15/2018 [facility] Total Cells 100 #CELLS Confirm [address] [place] [address] [phone] Neutrophils% 75 % High 33-73 Lymph% 13 % Low 20-42 Monocyte% 10 % N 0-10 Eosinophil% 1 % N 0-5 Basophil% 1 % N 0-2 Platelet Estimate NORMAL Anisocytosis 1+ Microcytosis 0-1+ Slide Review 03/15/2018 [facility] Slide Review DIFF ORDERED [address] [place] [address] [phone] CBC W/Automated 03/15/2018 [facility] White Blood 10.3 K/uL N 3.1-10.[address] Count [place], [place] [id number] [phone] Red Blood Count 4.59 M/uL N 3.90-5.40 [...] 40.4-72.8 Lymph % 16.2 % Low 20.0-42.0 [place] % 8.4 % N 4.3-13.2 Eo% 1.1 % N 0.0-6.6 Bas% 0.4 % N 0.0-1.1 Neut# 7.65 K/uL High 1.8-7.0 Lymph # 1.67 K/uL N 1.0-4.0 [place] # 0.87 K/uL N 0.3-0.9 Eos # 0.11 K/uL N 0.0-0.5 Baso # 0.04 K/uL N 0.0-0.1 Manual blood 03/15/2018 N2N/CCD Import Manual blood [...] 03/15/2018 N2N/CCD Import Color Ur Yellow Yellow Basophils/leuk NFr 03/15/2018 N2N/CCD Import Basophils/leuk 0.4 0.0-1.1 Bld Auto NFr Bld Auto Blood anisocytosis 03/15/2018 N2N/CCD Import Blood 1+ detection by light anisocytosis microscopy detection by light microscopy Blood erythrocytes 03/15/2018 N2N/CCD Import Blood 4.59 3.90-5.40 automated count erythrocytes (number/volume) automated count (number/volume) Blood hemoglobin 03/15/2018 N2N/CCD Import Blood hemoglobin 12.4 11.6- 15.8 measurement measurement (mass/volume) (mass/volume) Chloride 03/15/2018 N2N/CCD Import Chloride 103 98-107 SerPl-sCnc SerPl-sCnc Blood total cell 03/15/2018 N2N/CCD Import Blood total cell 100 count count Blood platelet 03/15/2018 N2N/CCD Import Blood platelet Normal adequacy detection adequacy by light microsc detection by light microscopy Blood monocytes 03/15/2018 N2N/CCD Import Blood monocytes 0.87 0.3-0.9 automated count automated count (number/volume) (number/volume) Blood leukocytes 03/15/2018 N2N/CCD Import Blood leukocytes 10.3 3.1- 10.7 automated count automated count (number/volume) (number/volume) Urine Culture 03/12/2018 [facility] Urine Culture MIXED 20, [address] [place] [address] <SEE NOTE> [phone] Quantity 10,000 - 50,000 <SEE NOTE> 22 Affirm 03/12/2018 [facility] Trichomonas Negative [Negative] Vaginitis [address] [place] [address] [phone] Gardnerella vaginalis Negative [Negative] Bella species Negative [Negative] 23 Bella species 03/12/2018 N2N/CCD Import Bella species Dna Negative [ Negative] Dna probe probe Lab Results 03/12/2018 N2N/CCD Import Gardnerella Dna Negative [Negative ] Probe Trichomonas 03/12/2018 N2N/CCD Import Trichomonas Negative [Negative] vaginalis Dna vaginalis Dna detection by detection by probe probe and t and target amplification method Gardnerella 03/12/2018 N2N/CCD Import Gardnerella Negative [Negative] vaginalis nucleic vaginalis nucleic acid probe, acid probe, quantifi quantification Urine Dipstick 03/12/2018 [facility] Ua Color clear Yellow Ua Clarity clear Clear Ua Leuko 1+ High Negative Ua Nitrite neg Negative Ua Urobilinogen neg Low 0.2 - 1.0 E.U./dL Ua Protein neg Negative Ua PH 7.0 6.5-7.5 Ua Blood neg Negative Ua Specific [place] 1.010 1.010-1.030 Ua Ketones neg Negative Ua Bilirubin neg Negative Ua Glucose neg Negative Automated 03/07/2018 N2N/CCD Import Automated 85.4 80.9-99.0 erythrocyte mean erythrocyte mean corpuscular volume corpuscular volume Basophils/leuk NFr 03/07/2018 N2N/CCD Import Basophils/leuk 1.0 0.0-1.1 Bld Auto NFr Bld Auto Automated blood 03/07/2018 N2N/CCD Import Automated blood 40.5 36.0- 46.1 hematocrit (volume hematocrit fraction) (volume fraction) Serum or plasma 03/07/2018 N2N/CCD Import Serum or plasma 0.5 0.2-1.0 total bilirubin total bilirubin measurement (mass/ measurement (mass/volume) Monocytes/leuk NFr 03/07/2018 N2N/CCD Import Monocytes/leuk 10.6 4.3- 13.2 Bld Auto NFr Bld Auto Automated blood 03/07/2018 N2N/CCD Import Automated blood 1.19 1.0-4.0 lymphocyte count lymphocyte count (number/volume) (number/volume) Color Ur 03/07/2018 N2N/CCD Import Color Ur Yellow Yellow Comprehensive 03/07/2018 [facility] Glucose 82 mg/dL N 74-106 24 Metabolic Panel [address] [place], [place] [id number] [phone] BUN 11 mg/dL N 7-18 Creatinine 0.9 mg/dL N 0.6-1.3 Glom Filtration Rate, Estimate >60 mL/min >60 If >60 mL/min >60 25 BUN/Creat 12.2 ratio Sodium 139 mmol/L N [...] N 0.2-1.0 Sgot/Ast 12 U/L Low 15-37 26 SGPT/Alt 18 U/L N 12-78 Alkaline Phosphatase 73 U/L N 45-117 RDW RBC Auto 03/07/2018 N2N/CCD Import RDW RBC Auto 42.9 3-47 Blood erythrocytes 03/07/2018 N2N/CCD Import Blood erythrocytes 4.74 3.90-5.40 automated count automated count (number/volume) (number/volume) Serum or plasma 03/07/2018 N2N/CCD Import Serum or plasma 7.0 6.4-8.2 protein measurement protein (mass/volume) measurement (mass/volume) Blood leukocytes 03/07/2018 N2N/CCD Import Blood leukocytes 7.9 3.1- 10.7 automated count automated count (number/volume) (number/volume) Lactic Acid 03/07/2018 [facility] Lactic Acid 1.0 mmol/L N 0.4-1.9 [address] [place] [address] [phone] Lab Reflex >2.0 for Sepsis? Y Serum sodium 03/07/2018 N2N/CCD Import Serum sodium 139 136-145 measurement measurement Automated blood 03/07/2018 N2N/CCD Import Automated blood 0.08 0.0-0.1 basophil count basophil count (count/volume) (count/volume) Automated blood 03/07/2018 N2N/CCD Import Automated blood 290 155-360 platelet count platelet count Leukocyte esterase 03/07/2018 N2N/CCD Import Leukocyte Negative Negative Ur Ql Strip.auto esterase Ur Ql Strip.auto Prot Ur 03/07/2018 N2N/CCD Import Prot Ur Negative Negative Strip.auto-mCnc Strip.auto-mCnc Urine glucose 03/07/2018 N2N/CCD Import Urine glucose Negative Negative measurement by measurement by automated test automated test strip strip (mass/volume) Blood hemoglobin 03/07/2018 N2N/CCD Import Blood hemoglobin 13.0 11.6- 15.8 measurement measurement (mass/volume) (mass/volume) Automated blood 03/07/2018 N2N/CCD Import Automated blood 9.7 8.9-12.4 platelet mean platelet mean volume measurement volume measurement Urine total 03/07/2018 N2N/CCD Import Urine total Negative Negative bilirubin bilirubin detection by detection by automated test automated test strip RDW RBC Auto-Rto 03/07/2018 N2N/CCD Import RDW RBC Auto-Rto 14.0 11.7- 14.4 Alt SerPl-cCnc 03/07/2018 N2N/CCD Import Alt SerPl-cCnc 18 12-78 Serum or plasma 03/07/2018 N2N/CCD Import Serum or plasma 3.4 3.4-5.0 albumin albumin measurement measurement (mass/volume) (mass/volume) Chloride 03/07/2018 N2N/CCD Import Chloride 106 98-107 SerPl-sCnc SerPl-sCnc Serum or plasma 03/07/2018 N2N/CCD Import Serum or plasma 8.9 8.5-10.1 calcium calcium measurement measurement (mass/volume) (mass/volume) Serum carbon 03/07/2018 N2N/CCD Import Serum carbon 24 21-32 dioxide dioxide measurement measurement Serum or plasma 03/07/2018 N2N/CCD Import Serum or plasma 82 74-106 glucose glucose measurement measurement (mass/volume) (mass/volume) Automated blood 03/07/2018 N2N/CCD Import Automated blood 0.14 0.0-0.5 eosinophil count eosinophil count Serum or plasma 03/07/2018 N2N/CCD Import Serum or plasma 139 56-289 lipase measurement lipase (enzymatic acti measurement (enzymatic activity/volume) Eosinophil/leuk 03/07/2018 N2N/CCD Import Eosinophil/leuk 1.8 0.0-6.6 NFr Bld Auto NFr Bld Auto Blood monocytes 03/07/2018 N2N/CCD Import Blood monocytes 0.84 0.3-0.9 automated count automated count (number/volume) (number/volume) Globulin Ser 03/07/2018 N2N/CCD Import Globulin Ser 3.6 1.9-4.3 Calc-mCnc Calc-mCnc Serum or plasma 03/07/2018 N2N/CCD Import Serum or plasma 12.2 urea urea nitrogen/creatinin nitrogen/creatini e mass rati ne mass ratio Lymphocytes/leuk 03/07/2018 N2N/CCD Import Lymphocytes/leuk 15.0 Low 20.0 -42.0 NFr Bld Auto NFr Bld Auto Ua RFX Micro & 03/07/2018 [facility] Urine Color YELLOW Yellow Culture II [address] [place] [address] [phone] Urine Clarity CLEAR Clear Urine Glucose - Dipstick NEGATIVE mg/dL Negative Urine Bilirubin - Dipstick NEGATIVE Negative Urine Ketone NEGATIVE mg/dL Negative Urine Specific [place] <=1.005 Low 1.010-1.030 Urine Blood NEGATIVE Negative Urine PH 6.0 Low 6.5-7.5 Urine Protein - Dipstick NEGATIVE mg/dL Negative Urine Urobilinogen - Dipstick 0.2 E.U./dL N 0.2-1.0 Urine Nitrite - Dipstick NEGATIVE Negative Urine Leuk Esterase NEGATIVE Negative Source: URINE, CLEAN CAT <SEE NOTE> 27 Albumin/Glob SerPl 03/07/2018 N2N/CCD Import Albumin/Glob SerPl 0.9 Ketones Ur 03/07/2018 N2N/CCD Import Ketones Ur Negative Negative Strip.auto-mCnc Strip.auto-mCnc Neutrophils # Bld 03/07/2018 N2N/CCD Import Neutrophils # Bld 5.68 1.8- 7.0 Auto Auto Nitrite Ur Ql 03/07/2018 N2N/CCD Import Nitrite Ur Ql Negative Negative Strip.auto Strip.auto Neutrophils/leuk 03/07/2018 N2N/CCD Import Neutrophils/leuk 71.6 40.4- 72.8 NFr Bld Auto NFr Bld Auto Urine appearance 03/07/2018 N2N/CCD Import Urine appearance Clear Clear determination determination Potassium 03/07/2018 N2N/CCD Import Potassium 4.0 3.5-5.1 SerPl-sCnc SerPl-sCnc Urine hemoglobin 03/07/2018 N2N/CCD Import Urine hemoglobin Negative Negative detection by detection by automated test automated test strip strip pH Ur Strip.auto 03/07/2018 N2N/CCD Import pH Ur Strip.auto 6.0 Low 6.5- 7.5 Urobilinogen Ur 03/07/2018 N2N/CCD Import Urobilinogen Ur 0.2 0.2-1.0 Strip-aCnc Strip-aCnc Serum or plasma 03/07/2018 N2N/CCD Import Serum or plasma 12 Low 15-37 aspartate aspartate aminotransferase aminotransferase measure measurement (enzymatic activity/volume) Anion Gap 03/07/2018 N2N/CCD Import Anion Gap 9 8-16 SerPl-sCnc SerPl-sCnc Serum or plasma 03/07/2018 N2N/CCD Import Serum or plasma 11 7-18 urea nitrogen urea nitrogen measurement measurement (mass/vo (mass/volume) Automated 03/07/2018 N2N/CCD Import Automated 27.4 25.9-32.7 erythrocyte mean erythrocyte mean corpuscular corpuscular hemoglobin hemoglobin (mass per erythrocyte) Serum or plasma 03/07/2018 N2N/CCD Import Serum or plasma 1.0 0.4-1.9 lactate measurement lactate measurement (moles/volume) (moles/volume) CBC W/Automated 03/07/2018 [facility] White Blood Count 7.9 K/uL N 3.1-10.7 Diff [address] [place] [address] [phone] Red Blood Count 4.74 M/uL N 3.90-5.40 [...] 40.4-72.8 Lymph % 15.0 % Low 20.0-42.0 [place] % 10.6 % N 4.3-13.2 Eo% 1.8 % N 0.0-6.6 Bas% 1.0 % N 0.0-1.1 Neut# 5.68 K/uL N 1.8-7.0 Lymph # 1.19 K/uL N 1.0-4.0 [place] # 0.84 K/uL N 0.3-0.9 Eos # 0.14 K/uL N 0.0-0.5 Baso # 0.08 K/uL N 0.0-0.1 Serum or plasma 03/07/2018 N2N/CCD Import Serum or plasma 0.9 0.6-1.3 creatinine creatinine measurement measurement (mass/volum (mass/volume) Serum or plasma 03/07/2018 N2N/CCD Import Serum or plasma 73 45-117 alkaline alkaline phosphatase phosphatase measurement measurement ( (enzymatic activity/volume) Laboratory test 03/07/2018 [facility] Lipase 139 U/L N 56-289 finding [address] [place] [address] [phone] Automated 03/07/2018 N2N/CCD Import Automated 32.1 30.8-34.3 erythrocyte mean erythrocyte mean corpuscular corpuscular hemoglobin hemoglobin concentration measurement (mass/volume) Urine Dipstick 03/03/2018 [facility] Ua Color yellow Yellow Ua Clarity clear Clear Ua Leuko trace Negative Ua Nitrite negative Negative Ua Urobilinogen negative Low 0.2 - 1.0 E.U./dL Ua Protein negative Negative Ua PH 6.0 Low 6.5-7.5 Ua Blood negative Negative Ua Specific [place] 1.015 1.010-1.030 Ua Ketones 2+ High Negative Ua Bilirubin negative Negative Ua Glucose negative Negative Urine Culture And 02/28/2018 [facility] Laboratory Urine SEE RESULT 28, 29 Sensitivities [phone] Culture BELOW Poc Urinalysis 02/28/2018 [facility] Laboratory Poc Negative Negative [phone] Glucose, Urine Poc Bilirubin, Urine Negative Negative Poc Ketone, Urine Negative Negative Poc Specific [place], Urine <=1.005 Low 1.010-1.030 Poc Blood, Urine Negative Negative Poc pH, Urine 6.5 N 5-9 Poc Protein, Urine Negative Negative Poc Urobilinogen, Urine 0.2 Negative Poc Nitrite, Urine Negative Negative Poc Leukocytes, Urine 2+ Abnormal Negative Poc Color, Urine Yellow Poc Clarity, Urine Clear 30 Laboratory test 02/28/2018 [facility] Laboratory Point of Care 84 mg/dL N 70-100 31 finding [phone] Glucose Basic Metabolic 01/27/2018 [facility] Glucose 92 mg/dL N 74-106 [address] [place] [address] [phone] BUN 12 mg/dL N 7-18 Creatinine 1.0 mg/dL N 0.6-1.3 Glom Filtration Rate, Estimate 56 mL/min >60 If >60 mL/min >60 33 BUN/Creat 12.0 ratio Sodium 139 mmol/L N 136-145 Potassium 4.2 mmol/L N 3.5-5.1 Chloride 102 mmol/L N 98-107 Carbon Dioxide 28 mmol/L N 21-32 Anion Gap 9 mEq/L N 8-16 Calcium 9.4 mg/dL N 8.5-10.1 Serum or plasma 01/27/2018 N2N/CCD Import Serum or plasma 72 >40 cholesterol in HDL cholesterol in HDL measurement (ma measurement (mass/volume) Laboratory test 01/27/2018 [facility] Vitamin 52.7 30.0-[address] D,25-Hydroxy ng/mL .0 [place] [address] [phone] Serum or plasma 01/27/2018 N2N/CCD Import Serum or plasma 52.7 30.0-100 25-hydroxyvitamin 25-hydroxyvitamin D .0 D measurement (m measurement (mass/volume) Serum or plasma 01/27/2018 N2N/CCD Import Serum or plasma 110 <150 triglyceride triglyceride measurement measurement (mass/vol (mass/volume) Serum or plasma 01/27/2018 N2N/CCD Import Serum or plasma 219 High <200 cholesterol cholesterol measurement measurement (mass/volu (mass/volume) Serum or plasma 01/27/2018 N2N/CCD Import Serum or plasma 125 < 100 cholesterol in LDL cholesterol in LDL measurement by measurement by calculation (mass/volume) LDL Cholesterol 01/27/2018 [facility] Cholesterol 219 High <200 [address] mg/[place] [address] [phone] Triglycerides 110 mg/dL <150 36 HDL Cholesterol 72 mg/dL >40 37 LDL-Cholesterol 125 mg/dL < 100 38 CBS W/Automated Diff 01/27/2018 [facility] White Blood 8.5 K/uL N 3.1-10.[address] [place] [address] [phone] Red Blood Count 4.99 M/uL N 3.90-5.40 [...] 40.4-72.8 Lymph % 14.5 % Low 20.0-42.0 [place] % 7.0 % N 4.3-13.2 Eo% 1.5 % N 0.0-6.6 Bas% 0.7 % N 0.0-1.1 Neut# 6.47 K/uL N 1.8-7.0 Lymph # 1.23 K/uL N 1.0-4.0 [place] # 0.59 K/uL N 0.3-0.9 Eos # 0.13 K/uL N 0.0-0.5 Baso # 0.06 K/uL N 0.0-0.1 Comprehensive Metabolic 09/18/2017 [facility] Glucose 82 mg/dL N 74-106 39 Panel [address] [place] [address] [phone] BUN 21 mg/dL High 7-18 Creatinine 0.9 mg/dL N 0.6-1.3 Glom Filtration Rate, Estimate >60 mL/min >60 If >60 mL/min >60 40 BUN/Creat 23.3 ratio Sodium 138 mmol/L N [...] N 0.2-1.0 Sgot/Ast 11 U/L Low 15-37 41 SGPT/Alt 13 U/L N 12-78 Alkaline Phosphatase 77 U/L N 45-117 LDL Cholesterol 09/18/2017 [facility] Cholesterol 216 mg/dL High <200 42 Profile [address] [place] [address] [phone] Triglycerides 152 mg/dL High <150 43 HDL Cholesterol 63 mg/dL >40 44 LDL-Cholesterol 123 mg/dL < 100 45 Comprehensive Metabolic 02/23/2017 [facility] Glucose 92 mg/dL N 74-106 46 Panel [address] [place] [address] [phone] BUN 9 mg/dL N 7-18 Creatinine 0.7 mg/dL N 0.6-1.3 Glom Filtration Rate, Estimate >60 mL/min >60 If >60 mL/min >60 47 BUN/Creat 12.8 ratio Sodium 142 mmol/L N [...] N 0.2-1.0 Sgot/Ast 6 U/L Low 15-37 48 SGPT/Alt 16 U/L N 12-78 Alkaline Phosphatase 72 U/L N 45-117 LDL Cholesterol 02/23/2017 [facility] Cholesterol 222 mg/dL High <200 49 Profile [address] [place], [place] [id number] [phone] Triglycerides 181 mg/dL High <150 50 HDL Cholesterol 74 mg/dL >40 51 LDL-Cholesterol 112 mg/dL < 100 52 CBS W/Automated Diff 02/23/2017 [facility] White Blood 7.5 K/uL N 3.1-10.[address] Count [place], [place] [id number] [phone] Red Blood Count 4.51 M/uL N 3.90-5.40 [...] 40.4-72.8 Lymph % 17.3 % Low 20.0-42.0 [place] % 9.0 % N 4.3-13.2 Eo% 3.2 % N 0.0-6.6 Bas% 0.7 % N 0.0-1.1 Neut# 5.21 K/uL N 1.8-7.0 Lymph # 1.29 K/uL N 1.0-4.0 [place] # 0.67 K/uL N 0.3-0.9 Eos # 0.24 K/uL N 0.0-0.5 Baso # 0.05 K/uL N 0.0-0.1 Basic Metabolic Panel 01/03/2017 [facility] Glucose 111 mg/dL High 74-[address] [place] [address] [phone] BUN 7 mg/dL N 7-18 Creatinine 0.8 mg/dL N 0.6-1.3 Glom Filtration Rate, Estimate >60 mL/min >60 If >60 mL/min >60 54 BUN/Creat 8.7 ratio Sodium 141 mmol/L N 136-145 Potassium 3.6 mmol/L N 3.5-5.1 Chloride 108 mmol/L High 98-107 Carbon Dioxide 25 mmol/L N 21-32 Anion Gap 8 mEq/L N 8-16 Calcium 7.9 mg/dL Low 8.5-10.1 CBS W/Automated 01/03/2017 [facility] White Blood 10.8 K/uL High 3.1-10.[address] [place] [address] [phone] Red Blood Count 3.96 M/uL N 3.90-5.40 [...] 40.4-72.8 Lymph % 10.0 % Low 20.0-42.0 [place] % 9.5 % N 4.3-13.2 Eo% 1.6 % N 0.0-6.6 Bas% 0.3 % N 0.0-1.1 Neut# 8.48 K/uL High 1.8-7.0 Lymph # 1.08 K/uL N 1.0-4.0 [place] # 1.03 K/uL High 0.3-0.9 Eos # 0.17 K/uL N 0.0-0.5 Baso # 0.03 K/uL N 0.0-0.1 Slide Review 01/03/2017 [facility] Slide Review (SEE [address] NOTE) [place] [address] [phone] Anion Gap 01/03/2017 N2N/CCD Import Anion Gap 8 8-16 SerPl-sCnc SerPl-sCnc Automated 01/03/2017 N2N/CCD Import Automated 27.8 25.9 erythrocyte mean erythrocyte mean -32. corpuscular corpuscular 7 hemoglobin hemoglobin (mass per erythrocyte) Automated 01/03/2017 N2N/CCD Import Automated 31.4 30.8 erythrocyte mean erythrocyte mean -34. corpuscular corpuscular 3 hemoglobin hemoglobin concentration measurement (mass/volume) BUN SerPl-mCnc 01/03/2017 N2N/CCD Import BUN SerPl-mCnc 7 7-18 BUN/Creat SerPl 01/03/2017 N2N/CCD Import BUN/Creat SerPl 8.7 Basophils 01/03/2017 N2N/CCD Import Basophils 0.03 0.0- [#/volume] in [#/volume] in 0.1 Blood by Blood by Automated count Automated count Basophils/leuk 01/03/2017 N2N/CCD Import Basophils/leuk 0.3 0.0- NFr Bld Auto NFr Bld Auto 1.1 Blood 01/03/2017 N2N/CCD Import Blood 3.96 3.90 erythrocytes erythrocytes -5.4 automated count automated count 0 (number/volume) (number/volume) Blood hemoglobin 01/03/2017 N2N/CCD Import Blood hemoglobin 11.0 Low 11.6 measurement measurement -15. (mass/volume) (mass/volume) 8 Blood monocytes 01/03/2017 N2N/CCD Import Blood monocytes 1.03 High 0.3- automated count automated count 0.9 (number/volume) (number/volume) Co2 SerPl-sCnc 01/03/2017 N2N/CCD Import Co2 SerPl-sCnc 25 21-3 2 Calcium 01/03/2017 N2N/CCD Import Calcium 7.9 Low 8.5- SerPl-mCnc SerPl-mCnc 10.1 Chloride 01/03/2017 N2N/CCD Import Chloride 108 High 98-1 SerPl-sCnc SerPl-sCnc 07 Creat SerPl-mCnc 01/03/2017 N2N/CCD Import Creat SerPl-mCnc 0.8 0.6- 1.3 Eosinophil # Bld 01/03/2017 N2N/CCD Import Eosinophil # Bld 0.17 0.0- Auto Auto 0.5 Eosinophil/leuk 01/03/2017 N2N/CCD Import Eosinophil/leuk 1.6 0.0- NFr Bld Auto NFr Bld Auto 6.6 Glucose 01/03/2017 N2N/CCD Import Glucose 111 High 74-1 [Mass/volume] in [Mass/volume] in 06 Serum or Plasma Serum or Plasma Hct VFr Bld Auto 01/03/2017 N2N/CCD Import Hct VFr Bld Auto 35.0 #L 36.0 -46. 1 Lymphocytes 01/03/2017 N2N/CCD Import Lymphocytes 1.08 1.0- [#/volume] in [#/volume] in 4.0 Blood by Blood by Automated count Automated count Lymphocytes/leuk 01/03/2017 N2N/CCD Import Lymphocytes/leuk 10.0 Low 20.0 NFr Bld Auto NFr Bld Auto -42. 0 MCV RBC Auto 01/03/2017 N2N/CCD Import MCV RBC Auto 88.4 80.9 -99. 0 Monocytes/leuk 01/03/2017 N2N/CCD Import Monocytes/leuk 9.5 4.3- NFr Bld Auto NFr Bld Auto 13.2 Neutrophils # Bld 01/03/2017 N2N/CCD Import Neutrophils # Bld 8.48 High 1.8- Auto Auto 7.0 Neutrophils/leuk 01/03/2017 N2N/CCD Import Neutrophils/leuk 78.6 High 40.4 NFr Bld Auto NFr Bld Auto -72. 8 PMV Bld Auto 01/03/2017 N2N/CCD Import PMV Bld Auto 11.1 8.9- 12.4 Platelets 01/03/2017 N2N/CCD Import Platelets 242 150- [#/volume] in [#/volume] in 400 Blood by Blood by Automated count Automated count Potassium 01/03/2017 N2N/CCD Import Potassium 3.6 3.5- SerPl-sCnc SerPl-sCnc 5.1 RDW RBC Auto 01/03/2017 N2N/CCD Import RDW RBC Auto 43.9 3-47 RDW RBC Auto-Rto 01/03/2017 N2N/CCD Import RDW RBC Auto-Rto 13.8 11.7 -14. 4 Sodium SerPl-sCnc 01/03/2017 N2N/CCD Import Sodium SerPl-sCnc 141 136- 145 Unloinc 01/03/2017 N2N/CCD Import Unloinc See Note 56 WBC # Bld Auto 01/03/2017 N2N/CCD Import WBC # Bld Auto 10.8 High 3.1- 10.7 Blood Culture 01/02/2017 [facility] Blood Culture (SEE [address] Aerobic NOTE) [place] [address] [phone] Quantity FROM BROTH N 58 Blood Culture Anaerobic NO GROWTH: FINAL <SEE NOTE> 59 CBS W/Automated 01/02/2017 [facility] White Blood 16.4 K/uL High 3.1-10.7 [address] [place] [address] [phone] Red Blood Count 4.51 M/uL N 3.90-5.40 [...] 40.4-72.8 Lymph % 7.9 % Low 20.0-42.0 [place] % 6.9 % N 4.3-13.2 Eo% 0.9 % N 0.0-6.6 Bas% 0.4 % N 0.0-1.1 Neut# 13.74 K/uL High 1.8-7.0 Lymph # 1.29 K/uL N 1.0-4.0 [place] # 1.13 K/uL High 0.3-0.9 Eos # 0.14 K/uL N 0.0-0.5 Baso # 0.06 K/uL N 0.0-0.1 Slide Review 01/02/2017 [facility] Slide Review (SEE NOTE) [address] [place] [address] [phone] Anaerobic blood 01/02/2017 N2N/CCD Import Anaerobic blood No Growth culture culture Lactic Acid 01/02/2017 [facility] Lactic Acid 2.1 mmol/L High 0.4-[address] [place] [address] [phone] Lab Reflex >2.0 for Sepsis? Y Alp SerPl-cCnc 01/02/2017 N2N/CCD Import Alp SerPl-cCnc 93 45-117 Alt SerPl-cCnc 01/02/2017 N2N/CCD Import Alt SerPl-cCnc 15 12-78 Comprehensive 01/02/2017 [facility] Glucose 121 mg/dL High 74-106 Metabolic Panel [address] [place] [address] [phone] BUN 15 mg/dL N 7-18 Creatinine 1.0 mg/dL N 0.6-1.3 Glom Filtration Rate, Estimate 57 mL/min >60 If >60 mL/min >60 63 BUN/Creat 15.0 ratio Sodium 140 mmol/L N [...] N 0.2-1.0 Sgot/Ast 6 U/L Low 15-37 64 SGPT/Alt 15 U/L N 12-78 Alkaline Phosphatase 93 U/L N 45-117 Albumin/Glob SerPl 01/02/2017 N2N/CCD Import Albumin/Glob SerPl 0.9 Aspartate 01/02/2017 N2N/CCD Import Aspartate 6 Low 15-3 aminotransferase aminotransferase 7 [Enzymatic [Enzymatic activity/vol activity/volume] in Serum or Plasma Bacteria Bld Aerobe 01/02/2017 N2N/CCD Import Bacteria Bld Aerobe No Growth Cult Cult Globulin Ser 01/02/2017 N2N/CCD Import Globulin Ser 4.0 1.9- Calc-mCnc Calc-mCnc 4.3 Prot SerPl-mCnc 01/02/2017 N2N/CCD Import Prot SerPl-mCnc 7.5 6.4- 8.2 Serum or plasma 01/02/2017 N2N/CCD Import Serum or plasma 0.6 0.2- total bilirubin total bilirubin 1.0 measurement (mass/ measurement (mass/volume) Blood Culture 01/02/2017 [facility] Blood Culture NO GROWTH: 65, [address] Aerobic FINAL <SEE [address] [place] [address] NOTE> [phone] Blood Culture Anaerobic NO GROWTH: FINAL <SEE NOTE> 67 Albumin SerPl-mCnc 01/02/2017 N2N/CCD Import Albumin SerPl-mCnc 3.5 3.4- 5.0 Lactic Acid 01/02/2017 [facility] Lactic Acid 1.2 mmol/L N 0.4-1.9 [address] [place], [place] [id number] [phone] Lab Reflex >2.0 for Sepsis? Y Lactate 01/02/2017 N2N/CCD Import Lactate 1.2 0.4-1.9 [Moles/volume] in [Moles/volume] in Serum or Plasma Serum or Plasma Laboratory test 01/02/2017 [facility] Lactic Acid 2.4 mmol/L High 0.4-1.9 68 finding [address] [place] [address] [phone] Ua RFX Micro & 01/02/2017 [facility] Urine Color YELLOW Yellow 69 Culture II [address] [place] [address] [phone] Urine Clarity CLEAR Clear Urine Glucose - Dipstick NEGATIVE mg/dL Negative Urine Bilirubin - Dipstick NEGATIVE Negative Urine Ketone NEGATIVE mg/dL Negative Urine Specific [place] 1.015 N 1.010-1.030 Urine Blood NEGATIVE Negative Urine PH 7.5 N 6.5-7.5 Urine Protein - Dipstick NEGATIVE mg/dL Negative Urine Urobilinogen - Dipstick 1.0 E.U./dL N 0.2-1.0 Urine Nitrite - Dipstick NEGATIVE Negative Urine Leuk Esterase NEGATIVE Negative Source: URINE, CLEAN CAT <SEE NOTE> 70 Color Ur 01/02/2017 N2N/CCD Import Color Ur [...] test automated test strip strip Urine total 01/02/2017 N2N/CCD Import Urine total Negative Negative bilirubin bilirubin detection by detection by automated test automated test strip Urobilinogen Ur 01/02/2017 N2N/CCD Import Urobilinogen Ur 1.0 0.2-1.0 Strip-aCnc Strip-aCnc pH Ur Strip.auto 01/02/2017 N2N/CCD Import pH Ur Strip.auto 7.5 6.5-7.5 Comprehensive 06/03/2016 [facility] Glucose 84 mg/dL N 74-106 71 Metabolic Panel [address] [place] [address] [phone] BUN 20 mg/dL High 7-18 Creatinine 0.9 mg/dL N 0.6-1.3 Glom Filtration Rate, Estimate >60 mL/min >60 If >60 mL/min >60 72 BUN/Creat 22.2 ratio Sodium 141 mmol/L N [...] N 0.2-1.0 Sgot/Ast 9 U/L Low 15-37 73 SGPT/Alt 17 U/L N 12-78 Alkaline Phosphatase 75 U/L N 45-117 CBS W/Automated 06/03/2016 [facility] White Blood 11.4 K/uL High 3.1-10.[address] [place] [address] [phone] Red Blood Count 4.70 M/uL N 3.90-5.40 [...] 40.4-72.8 Lymph % 14.7 % Low 20.0-42.0 [place] % 9.0 % N 4.3-13.2 Eo% 1.8 % N 0.0-6.6 Bas% 0.4 % N 0.0-1.1 Neut# 8.44 K/uL High 1.8-7.0 Lymph # 1.67 K/uL N 1.0-4.0 [place] # 1.02 K/uL High 0.3-0.9 Eos # 0.20 K/uL N 0.0-0.5 Baso # 0.04 K/uL N 0.0-0.1 LDL Cholesterol 06/03/2016 [facility] Cholesterol 225 mg/dL High <200 74 Profile [address] [place] [address] [phone] Triglycerides 129 mg/dL <150 75 HDL Cholesterol 67 mg/dL >40 76 LDL-Cholesterol 132 mg/dL < 100 77 Slide Review 06/03/2016 [facility] Slide Review . [address] [place] [address] [phone] Urine Culture 01/23/2016 [facility] Urine Culture URETHRAL PEYMAN [address] [place] [address] [phone] Quantity 10,000 - 50,000 <SEE NOTE> N 80 @[facility] Pat Id: [id number] @[facility] Req #: [id number] Urinalysis With 01/23/2016 [facility] Urine Color YELLOW N Yellow Microscopic [address] [place], [place] [id number] [phone] Urine Clarity CLEAR N Clear Urine Glucose - Dipstick NEGATIVE mg/dL N Negative Urine Bilirubin - Dipstick NEGATIVE N Negative Urine Ketone NEGATIVE mg/dL N Negative Urine Specific [place] 1.010 N 1.010-1.030 Urine Blood NEGATIVE N [...] Seen Urine Mucus SMALL N None Seen @[facility] Pat Id: [id number] @[facility] Req #: [id number] Comprehensive Metabolic 01/14/2016 [facility] Glucose 94 mg/dL N 74-106 [address] [place], [place] [id number] [phone] BUN 9 mg/dL N 7-18 Creatinine 1.0 mg/dL N 0.6-1.3 Glom Filtration Rate, Estimate 57 mL/min N >60 If >60 mL/min N >60 82 BUN/Creat 9.0 ratio N Sodium 139 mmol/L [...] N 0.2-1.0 Sgot/Ast 11 U/L Low 15-37 83 SGPT/Alt 20 U/L N 12-78 Alkaline Phosphatase 72 U/L N 45-117 @[facility] Pat Id: [id number] @[facility] Req #: [id number] Is Patient Fasting? Fasting CBC W/Automated Diff 01/14/2016 [facility] White Blood 8.8 K/uL N 3.1-10.[address] Count [place], [place] [id number] [phone] Red Blood Count 4.63 M/uL N 3.90-5.40 [...] 40.4-72.8 Lymph % 13.7 % Low 17.0-46.1 [place] % 8.7 % N 4.3-13.2 Eo% 3.0 % N 0.0-6.6 Bas% 0.5 % N 0.0-1.1 Neut# 6.51 K/uL N 1.8-7.0 Lymph # 1.20 K/uL Low 1.8-7.0 [place] # 0.76 K/uL N 0.3-0.9 Eos # 0.26 K/uL N 0.0-0.5 Baso # 0.04 K/uL N 0.0-0.1 @[facility] Pat Id: [id number] @[facility] Req #: [id number] LDL Cholesterol 01/14/2016 [facility] Cholesterol 202 mg/dL High <200 [address] [place] [address] [phone] Triglycerides 140 mg/dL N <150 85 HDL Cholesterol 64 mg/dL N >40 86 LDL-Cholesterol 110 mg/dL N < 100 87 @[facility] Pat Id: [id number] @[facility] Req #: [id number] Is Patient Fasting? Fasting Vitamin 01/14/2016 [facility] Vitamin 34.6 N 30.0-100.0 88 D,25-Hydroxy [address] D,25-Hydroxy ng/mL [place], [place] [id number] [phone] @[facility] Pat Id: [id number] @[facility] Req #: [id number] 1 STREP. AGALACTIAE (BETA GRP B) 2 50,000 - 100,000 CFU/mL 3 PENICILLIN OR AMPICILLIN. 4 I10 5 URINE, CLEAN CATCH 6 SHAKY CAN'T EAT 7 URINE, CLEAN CATCH 8 SHAKEY, TINGLY SENSATION ON BOTH ARMS, POE 9 Note: Persistent reduction for 3 months or more in an eGFR <60 mL/min/1.73 m2 defines CKD. Patients with eGFR values >/=60 mL/min/1.73 m2 may also have CKD if evidence of persistent proteinuria is present. The original MDRD equation for estimated GFR is not valid for patients less than 18 years of age. Additional information may be found at www.k[facility].org. 10 Values below the stated reference ranges of AST and ALT can be seen in normal populations. Clinical correlation is suggested. 11 POSSIBLE UROGENITAL CONTAMINATION. POSSIBLE UROGENITAL CONTAMINATION. POSSIBLE UROGENITAL CONTAMINATION. 12 URINE, CLEAN CATCH 13 STREP. AGALACTIAE (BETA GRP B) 14 > 100,000 CFU/mL 15 PENICILLIN OR AMPICILLIN. 16 NOT FEELING WELL ALL OVER 17 URINE, CLEAN CATCH 18 Note: Persistent reduction for 3 months or more in an eGFR <60 mL/min/1.73 m2 defines CKD. Patients with eGFR values >/=60 mL/min/1.73 m2 may also have CKD if evidence of persistent proteinuria is present. The original MDRD equation for estimated GFR is not valid for patients less than 18 years of age. Additional information may be found at www.kdoqi.org. 19 Values below the stated reference ranges of AST and ALT can be seen in normal populations. Clinical correlation is suggested. 20 R30.0 B37.0 21 MIXED URETHRAL PEYMAN 22 10,000 - 50,000 CFU/mL 23 Method: BD Affirm VPIII DNA Probe Assay 24 UTI, NOT BETTER 25 Note: Persistent reduction for 3 months or more in an eGFR <60 mL/min/1.73 m2 defines CKD. Patients with eGFR values >/=60 mL/min/1.73 m2 may also have CKD if evidence of persistent proteinuria is present. The original MDRD equation for estimated GFR is not valid for patients less than 18 years of age. Additional information may be found at www.kdoqi.org. 26 Values below the stated reference ranges of AST and ALT can be seen in normal populations. Clinical correlation is suggested. 27 URINE, CLEAN CATCH 28 [id number] 29 SEE RESULT BELOW Name: DOMINIQUE GOULD : [address]: Bob Mcconnell MD Acct: [id number] Unit: [id number] AGE: 82 Location: [facility] Re02/28/18 SEX: F Status: DEP ER SPEC: [id number] JULIO CESAR: 02/28/18150 [facility] DR: Bob Mcconnell MD REQ: [id number] RECD: 03/01/18 STATUS: KAMLESH COREA DR: Lucie Griffiths MD _ SOURCE: URINE [facility]: ORDERED: Urine Culture COMMENTS: [id number] Procedure Result Reported Site Urine Culture Final 03/02/18- 1128 ML Organism 1 STREP GROUP B [place] Count 25-50,000 (Moderate) CFU/ML Susceptibility testing of penicillins and other B-lactams approved by FDA for treatment of Streptococcus pyogenes (Group A Strep) and Streptococcus agalactiae (Group B Strep) is not necessary for clinical purposes and need not be done routinely, since as with vancomycin, resistant strains have not been recognized. (CLSI J965-C16;p.66) Positive isolates will be saved for one week. Please call the Microbiology Laboratory if further susceptibility testing is needed. * ML - Main Lab . END OF REPORT DEPARTMENT OF PATHOLOGY, [address] [place] [address] Rafael Hinojosa M.D. Director [facility] # [id number] 30 Drums Teacher: [id number] MYRNA CASTILLO to be notified Drums Teacher: [id number] E78.5 33 Note: Persistent reduction for 3 months or more in an eGFR <60 mL/min/1.73 m2 defines CKD. Patients with eGFR values >/=60 mL/min/1.73 m2 may also have CKD if evidence of persistent proteinuria is present. The original MDRD equation for estimated GFR is not valid for patients less than 18 years of age. Additional information may be found at www.kdoqi.org. 34 Vitamin D deficiency has been defined by the [place] [employer] and an Endocrine Society practice guideline as a level of serum 25-OH vitamin D less than 20 ng/mL (1,2). The Endocrine Society went on to further define vitamin D insufficiency as a level between 21 and 29 ng/mL (2). 1. IOM ([place] [employer]). 2010. Dietary reference intakes for calcium and D. [place]: The National Academies Press. 2. Josephine MF, Nette NC, Maciel-Enrique POE, et al. Evaluation, treatment, and prevention of vitamin D deficiency: an Endocrine Society clinical practice guideline. JCEM. 2010; 96(7):1911-30. Performed at: RN - [facility] [address], [place], [place] [id number] Information Security: Keena Choudhary MD, Phone: [phone] Reference Guidelines*: Desirable: ........... < 200 mg/dL Borderline High: ..... 200-239 mg/dL High: ................ >=240 mg/dL * The National Cholesterol Education Program (NCEP) 36 Reference Guidelines*: Normal: ............. < 150 mg/dL Borderline High: .... 150-199 mg/dL High: ............... 200-499 mg/dL Very High: .......... > 500 mg/dL * Source: National Cholesterol Education Program (NCEP) 37 Reference Guidelines*: Low HDL: ..... < 40 mg/dL Normal: ..... 40-60 mg/dL Desirable: ... > 60 mg/dL *The National Cholesterol Education Program(NCEP) 38 Reference Guidelines*: Optimal:........... <100 mg/dL Near Optimal....... 100-129 mg/dL Borderline High.... 130-159 mg/dL High............... 160-189 mg/dL Very High.......... >=190 mg/dL * Source: National Cholesterol Education Program (NCEP) 39 E78.5,J45.20 40 Note: Persistent reduction for 3 months or more in an eGFR <60 mL/min/1.73 m2 defines CKD. Patients with eGFR values >/=60 mL/min/1.73 m2 may also have CKD if evidence of persistent proteinuria is present. The original MDRD equation for estimated GFR is not valid for patients less than 18 years of age. Additional information may be found at www.kdoqi.org. 41 Values below the stated reference ranges of AST and ALT can be seen in normal populations. Clinical correlation is suggested. 42 Reference Guidelines*: Desirable: ........... < 200 mg/dL Borderline High: ..... 200-239 mg/dL High: ................ >=240 mg/dL * The National Cholesterol Education Program (NCEP) 43 Reference Guidelines*: Normal: ............. < 150 mg/dL Borderline High: .... 150-199 mg/dL High: ............... 200-499 mg/dL Very High: .......... > 500 mg/dL * Source: National Cholesterol Education Program (NCEP) 44 Reference Guidelines*: Low HDL: ..... < 40 mg/dL Normal: ..... 40-60 mg/dL Desirable: ... > 60 mg/dL *The National Cholesterol Education Program(NCEP) 45 Reference Guidelines*: Optimal:........... <100 mg/dL Near Optimal....... 100-129 mg/dL Borderline High.... 130-159 mg/dL High............... 160-189 mg/dL Very High.......... >=190 mg/dL * Source: National Cholesterol Education Program (NCEP) 46 E78.5 I10 47 Note: Persistent reduction for 3 months or more in an eGFR <60 mL/min/1.73 m2 defines CKD. Patients with eGFR values >/=60 mL/min/1.73 m2 may also have CKD if evidence of persistent proteinuria is present. The original MDRD equation for estimated GFR is not valid for patients less than 18 years of age. Additional information may be found at www.kdoqi.org. 48 Values below the stated reference ranges of AST and ALT can be seen in normal populations. Clinical correlation is suggested. 49 Reference Guidelines*: Desirable: ........... < 200 mg/dL Borderline High: ..... 200-239 mg/dL High: ................ >=240 mg/dL * The National Cholesterol Education Program (NCEP) 50 Reference Guidelines*: Normal: ............. < 150 mg/dL Borderline High: .... 150-199 mg/dL High: ............... 200-499 mg/dL Very High: .......... > 500 mg/dL * Source: National Cholesterol Education Program (NCEP) 51 Reference Guidelines*: Low HDL: ..... < 40 mg/dL Normal: ..... 40-60 mg/dL Desirable: ... > 60 mg/dL *The National Cholesterol Education Program(NCEP) 52 Reference Guidelines*: Optimal:........... <100 mg/dL Near Optimal....... 100-129 mg/dL Borderline High.... 130-159 mg/dL High............... 160-189 mg/dL Very High.......... >=190 mg/dL * Source: National Cholesterol Education Program (NCEP) 53 ACUTE DIVERTICULITIS 54 Note: Persistent reduction for 3 months or more in an eGFR <60 mL/min/1.73 m2 defines CKD. Patients with eGFR values >/=60 mL/min/1.73 m2 may also have CKD if evidence of persistent proteinuria is present. The original MDRD equation for estimated GFR is not valid for patients less than 18 years of age. Additional information may be found at www.kdoqi.org. 55 Instrument flagged sample for slide review. Less than 10% Bands seen, no other immature WBC's seen. RBC morphology essentially normal. Platelet estimate=Normal 56 Instrument flagged sample for slide review. Less than 10% Bands seen, no other immature WBC's seen. RBC morphology essentially normal. Platelet estimate= Normal 57 GRAM POSITIVE COCCI SEEN ON GRAM STAIN. COAGULASE NEG. STAPHYLOCOCCUS 58 ORGANISM IS OFTEN FOUND A CONTAMINANT. HOLDING ISOLATE IN MICROBIOLOGY LAB. PLEASE CALL [phone] IF FULL ID/OR SUSCEPTIBILITY DESIRED. 59 NO GROWTH: FINAL REPORT 60 ABD PAIN ACUTE DIVERTICULITIS 61 Instrument flagged sample for slide review. Less than 10% Bands seen, no other immature WBC's seen. RBC morphology essentially normal. Platelet estimate=NORMAL 62 SPECIMEN SLIGHTLY HEMOLYZED, INTERPRET WITH CAUTION 63 Note: Persistent reduction for 3 months or more in an eGFR <60 mL/min/1.73 m2 defines CKD. Patients with eGFR values >/=60 mL/min/1.73 m2 may also have CKD if evidence of persistent proteinuria is present. The original MDRD equation for estimated GFR is not valid for patients less than 18 years of age. Additional information may be found at www.kdoqi.org. 64 Values below the stated reference ranges of AST and ALT can be seen in normal populations. Clinical correlation is suggested. 65 ACUTE DIVERTICULITIS 66 NO GROWTH: FINAL REPORT 67 NO GROWTH: FINAL REPORT 68 CHECKED CALLED LACTIC TO REW AT 0820 09/22/17 by LAB.AWP 69 ABD PAIN 70 URINE, CLEAN CATCH 71 E78.5 I10 72 Note: Persistent reduction for 3 months or more in an eGFR <60 mL/min/1.73 m2 defines CKD. Patients with eGFR values >/=60 mL/min/1.73 m2 may also have CKD if evidence of persistent proteinuria is present. The original MDRD equation for estimated GFR is not valid for patients less than 18 years of age. Additional information may be found at www.kdoqi.org. 73 Values below the stated reference ranges of AST and ALT can be seen in normal populations. Clinical correlation is suggested. 74 Reference Guidelines*: Desirable: ........... < 200 mg/dL Borderline High: ..... 200-239 mg/dL High: ................ >=240 mg/dL * The National Cholesterol Education Program (NCEP) 75 Reference Guidelines*: Normal: ............. < 150 mg/dL Borderline High: .... 150-199 mg/dL High: ............... 200-499 mg/dL Very High: .......... > 500 mg/dL * Source: National Cholesterol Education Program (NCEP) 76 Reference Guidelines*: Low HDL: ..... < 40 mg/dL Normal: ..... 40-60 mg/dL Desirable: ... > 60 mg/dL *The National Cholesterol Education Program(NCEP) 77 Reference Guidelines*: Optimal:........... <100 mg/dL Near Optimal....... 100-129 mg/dL Borderline High.... 130-159 mg/dL High............... 160-189 mg/dL Very High.......... >=190 mg/dL * Source: National Cholesterol Education Program (NCEP) 78 Instrument flagged sample for slide review. Less than 10% Bands seen, no other immature WBC's seen. RBC morphology essentially normal. Platelet estimate=NORMAL 79 N39.0 80 10,000 - 50,000 CFU/mL 81 I10,E78.5,M25.569,M15.0 82 Note: Persistent reduction for 3 months or more in an eGFR <60 mL/min/1.73 m2 defines CKD. Patients with eGFR values >/=60 mL/min/1.73 m2 may also have CKD if evidence of persistent proteinuria is present. The original MDRD equation for estimated GFR is not valid for patients less than 18 years of age. Additional information may be found at www.kdoqi.org. 83 Values below the stated reference ranges of AST and ALT can be seen in normal populations. Clinical correlation is suggested. 84 Reference Guidelines*: Desirable: ........... < 200 mg/dL Borderline High: ..... 200-239 mg/dL High: ................ >=240 mg/dL * The National Cholesterol Education Program (NCEP) 85 Reference Guidelines*: Normal: ............. < 150 mg/dL Borderline High: .... 150-199 mg/dL High: ............... 200-499 mg/dL Very High: .......... > 500 mg/dL * Source: National Cholesterol Education Program (NCEP) 86 Reference Guidelines*: Low HDL: ..... < 40 mg/dL Normal: ..... 40-60 mg/dL Desirable: ... > 60 mg/dL *The National Cholesterol Education Program(NCEP) 87 Reference Guidelines*: Optimal:........... <100 mg/dL Near Optimal....... 100-129 mg/dL Borderline High.... 130-159 mg/dL High............... 160-189 mg/dL Very High.......... >=190 mg/dL * Source: National Cholesterol Education Program (NCEP) 88 Vitamin D deficiency has been defined by the [place] [employer] and an Endocrine Society practice guideline as a level of serum 25-OH vitamin D less than 20 ng/mL (1,2). The Endocrine Society went on to further define vitamin D insufficiency as a level between 21 and 29 ng/mL (2). 1. IOM ([place] [employer]). 2010. Dietary reference intakes for calcium and D. [place]: The National Academies Press. 2. Josephine MF, Nette STUART, Aaron POE, et al. Evaluation, treatment, and prevention of vitamin D deficiency: an Endocrine Society clinical practice guideline. JCEM. 2010; 96(7):8061-30. Performed at: RN - [facility] [address] [id number] Information Security: Keena Choudhary MD, Phone: [phone] Procedures Date Code Description Status 06/25/2018 69231 Brief Emotional/Behav Assessment W/ Scoring Doc Per Completed Standard Inst 04/13/2017 [id number] Mammogram Completed 08/13/2016 44163 Pressurized/Non-Pressurized Inhalation Treatment,Acute Completed Obstructio 06/26/2015 [id number] Colonoscopy Completed 03/13/2015 [id number] Mammogram Completed 10/04/2014 31587 Radiology, Wrist Complete Completed 10/04/2014 76233 Radiology, Wrist Complete Completed 08/21/2014 26630 Radiology, Wrist Complete Completed 08/04/2014 94516 Neuroplasty median nerve at carpal tunnel Completed 08/04/2014 78039 Neuroplasty median nerve at carpal tunnel Completed 08/04/2014 92151 ORIF distal radial intra articular fracture w/3 or Completed more fragments 08/04/2014 81756 ORIF distal radial intra articular fracture w/3 or Completed more fragments 08/04/2014 26337 Anesthesia, Lower Arm Surgery Open/Surg Completed Arthroscopic/Endoscopic 08/02/2014 72741 Application of Cast short arm Completed 08/02/2014 13225 Application of Cast short arm Completed 08/02/2014 02306 Radiology, Wrist Complete Completed 08/02/2014 64574 Radiology, Wrist Complete Completed 08/01/2014 95193 Long Arm Cast Completed 07/31/2014 38495 Radiology, Wrist Complete Completed 07/31/2014 48611 Radiology, Wrist Complete Completed 07/19/2014 45375 Fracture distal radial-closed Completed 12/19/2013 [id number] Mammogram Completed 04/13/2013 [id number] Bone Mineral Density Test Completed 05/16/2010 14674 Stress Test Interpre And Report Only Completed 05/16/2010 94853 Stress Test Physician Super Only Completed Encounters Type Date Location Provider Dx Diagnosis Office Visit 06/25/2018 Primary Care Elian Mancia1.9 Anxiety disorder, 11:00a Office Donna, MS, unspecified ECHO VASC TECH-C, CNM G25.0 Essential tremor I10 Essential (primary) hypertension R20.2 Paresthesia of skin E78.5 Hyperlipidemia, unspecified N95.1 Menopausal and female climacteric states R82.998 Other abnormal findings in urine Office Visit 06/04/2018 3:00p Primary Care Donna Mancia, R20.2 Paresthesia of Office MS, ECHO VASC TECH-C, CNM skin R42 Dizziness and giddiness I10 Essential (primary) hypertension R53.83 Other fatigue R51 Headache R82.90 Unspecified abnormal findings in urine R63.4 Abnormal weight loss Office Visit 04/14/2018 11:00a Primary Care Manjinder F41.9 Anxiety disorder, Office Cherelle Estevez PA unspecified Office Visit 03/17/2018 10:30a Primary Care Manjinder, N81.10 Cystocele, Office Cherelle Estevez PA unspecified F41.9 Anxiety disorder, unspecified R11.0 Nausea Office Visit 03/12/2018 1:30p Primary Care Donna Mancia, MS, R30.0 Dysuria Office ECHO VASC TECH-C, CNM B37.3 Candidiasis of vulva and vagina Office Visit 03/03/2018 1:45p Primary Care Manjinder, N39.0 Urinary tract Office Cherelle Estevez PA infection, site not specified R11.0 Nausea Office Visit 01/28/2018 11:00a Primary Care Lucie Griffiths, F41.9 Anxiety disorder, Office MD unspecified E78.5 [...] Adelina Rhodes B37.3 Candidiasis of Office MANDY Joe vulva and vagina K64.9 Unspecified hemorrhoids 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, part unsp, 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 Z23 Encounter for immunization Office Visit 11/21/2016 10:40a Primary Care Lucie Griffiths MD M54.2 Cervicalgia Office J45.20 Mild intermittent asthma, uncomplicated R60.0 Localized edema Office Visit 08/13/2016 11:00a Primary Care Lucie Griffiths J45.41 Moderate persistent Office MD asthma with (acute) exacerbation Office Visit 08/04/2016 1:30p Primary Care Adelina Rhodes J06.9 Acute upper Office MANDY Joe respiratory infection, unspecified R51 Headache Office Visit 06/18/2016 11:40a Primary Care Lucie Griffiths, I10 Essential ( primary) Office hypertension E78.5 Hyperlipidemia, unspecified R21 Rash and other nonspecific skin eruption M54.2 Cervicalgia Office Visit 01/23/2016 11:00a Primary Care Lucie Griffiths, I10 Essential ( primary) Office hypertension E78.5 Hyperlipidemia, unspecified M15.0 Primary generalized (osteo)arthritis N39.0 Urinary tract infection, site not specified R21 Rash and other nonspecific skin eruption B35.9 Dermatophytosis, unspecified Z23 Encounter for immunization Office Visit 08/29/2014 11:15a Orthopaedic Office Hanh, 813.42 FX Nyla Nguyen MD (Alone) Distal End Other Closed Office Visit 08/09/2014 2:15p Orthopaedic Office Hanh V54.89 Wendy Winslow MD Orthopedic Other Plan of Treatment Future Appointment(s):10/12/2018 2:15 pm - Himanshu Allison M.D. at [id number] 11:30 am - Donna Mancia MS, ECHO VASC TECH-C, CNM at [id number] - Himanshu Allison M.D.N39.0 Urinary tract infection, site not specifiedComments:Will repeat urine culture today if still has a UTI will schedule for cystoscopy and pelvic exam .
[2018-08-02 11:27] VITALS: BP 158/80
--- NOTE | 2018-08-02 12:23 | UC ---
General HPI - HPI Summary HPI Summary: 82 yo female presents to with son. Pt lives in assisted living. H/o anxiety , depression. pt states over past 6 monts has had recurrent UTIs. Pt states was told "bladder fell" Pt had a referral visit with urology but was not comfortable with the encounter. Pt states here today because feels shaky and anxious as happens when she gets UTI. Pt states she is a "worrier" and is concerned that her bladder needs to be "lifted." No fever, chills + drinking fluid Pt medications reviewed - History of Current Complaint Chief Complaint: UCRespiratory Stated Complaint: SOB,SHAKEY,FOGGY Time Seen by Provider: 08/02/18 11:55 Hx Obtained From: Patient, Family/Heater Mechanic, Medical Records Hx Last Menstrual Period: n/a Pain Intensity: 2 - Allergy/Home Medications Allergies/Adverse Reactions: Allergies Allergy/AdvReac Type Severity Reaction Status Date / Time cephalexin Allergy Unknown Verified 08/02/18 11:31 Reaction Details Penicillins Allergy Unknown Verified 08/02/18 12:48 Reaction Details Sulfa (Sulfonamide Allergy Unknown Verified 08/02/18 11:31 Antibiotics) Reaction Details Home Medications: Home Medications Albuterol inh POWDER (NF) [Proair Respiclick] 1 puff INH DAILY 08/02/18 [ History Confirmed 08/02/18] Cholecalciferol (Vitamin D3) [D 1000] 2,000 unit PO DAILY 08/02/18 [History Confirmed 08/02/18] Mometasone 220 MCG MDI * [Asmanex 220 MCG MDI *] 1 puff INH BID 08/02/18 [ History Confirmed 08/02/18] Propranolol HCl 10 mg PO BID 08/02/18 [History Confirmed 08/02/18] Sertraline HCl [Zoloft] 25 mg PO DAILY 08/02/18 [History Confirmed 08/02/18] Vitamin B Complex [Super B-50 Complex] 1 each PO DAILY 08/02/18 [History Confirmed 08/02/18] PMH/Surg Hx/FS Hx/Imm Hx Previously Healthy: Yes GI/ History: Other - recurrent UTI Psychological History: Anxiety - Surgical History Surgical History: Yes Surgery Procedure, Year, and Place: Cholecystectomy. Appendectomy. Hysterectomy. Left Breast Lumpectomy and Lymphectomy - Family History Known Family History: Positive: Cardiac Disease, Hypertension, Diabetes, Non- Contributory - Social History Occupation: Retired Lives: Assisted Living Alcohol Use: None Substance Use Type: None Smoking Status (MU): Never Smoked Tobacco - Immunization History Most Recent Influenza Vaccination: 01/2017 Review of Systems All Other Systems Reviewed And Are Negative: Yes Constitutional: Positive: Negative Respiratory: Positive: Negative Cardiovascular: Positive: Negative Gastrointestinal: Positive: Negative Genitourinary: Positive: Frequency, Urgency Physical Exam - Summary Physical Exam Summary: Vital Signs Reviewed: Yes A+Ox3, mildly anxious, improved with convesation. Eyes: Conjunctiva Clear, ZANE. EOM intact and full ENT: Hearing grossly normal TM x 2 clear, turbinates mildly inflammed, mild PND , mmoist, uvula midline, no exudate, no erythema Neck: Positive: Supple Respiratory: Positive: No respiratory distress, No accessory muscle use + CTA throughout no w/r, speaking easy full sentences, no coughing Cardiovascular: RRR nl s1, s2 no m/r CBT <2 sec abd soft + BS nt/nd no guarding, no distension no CVA Musculoskeletal Exam: NARANJO x 4 without difficulty Strength Intact, ROM Intact Neurological: Positive: Alert, + sensation throughout mild tremor - baseline Psychological: Positive: Normal Response To Family Skin: Positive: no rash, no ecchymosis Triage Information Reviewed: Yes Vital Signs: Initial Vital Signs Temp 99 F 08/02/18 11:12 Pulse 65 08/02/18 11:12 Resp 14 08/02/18 11:12 BP 158/80 08/02/18 11:12 Pulse Ox 97 08/02/18 11:12 Diagnostics - EKG Cardiac Rate: NL Cardiac Rhythm: Sinus: Normal Ectopy: PVCs ST Segment: Normal EKG Comparison: No Significant Change Course/Dx - Course Course Of Treatment: Pt presents with son feeling slightly dizzy and anxious. Pt also reports urinary frequency. Pt with h/o recurrent UTI. Pt initialy very anxious - improved with conversation - pt able to relax EKG and FSBG non concerning Urine 2+ LE Will start pt on macrobid - culture pending - I reviewed this at length with pt and son - understanding spoke with Dr. Dozier office - does not perform bladder sling - recommend Dr. Murillo in [place] Contact this office -requires PCP referral Pt with f.u appt scheduled by [place] for Thursday Pt has recently increased zoloft pt and son comfort and agreement with plan Pt's + po in UC - visibily improved - comfort with d/c very strict return precautions - Diagnoses Provider Diagnosis: UTI (urinary tract infection) Discharge - Sign-Out/Discharge Documenting (check all that apply): Patient Departure All imaging exams completed and their final reports reviewed: No - Discharge Plan Condition: Stable Disposition: HOME Prescriptions: Nitrofurantoin Monohyd/M-Cryst [Macrobid 100 mg Capsule] 100 mg PO BID #14 cap Patient Education Materials: Urinary Tract Infection in Women (ED) Referrals: Lucie Griffiths MD [Primary Care Provider] - (1:15pm on Thursday08/06/18) Nallely Murillo MD [Medical Doctor] - (Request your primary care doctor contacts this office to schedule a consultation appointment regarding your repeat bladder infections) Additional Instructions: - stay well hydrated - drink plenty of non-alcoholic, non caffinated beverages - your urine will be further tested - if you require any changes to your treatment, we will contact you - this usually take 2 days - Take your antibiotics exactly as prescribed until gone - Okay to take Tylenol every 6-8 hours as needed for pain or fever You have an appointment at your primary care provider office schedule for Thursday , 08/02/18 at1:15pm - it is important to keep this appointment as scheduled It is recommended you request a referral to another urology - Dr. Murillo - [place] [phone] - discuss with your doctor on Thursday a referral this urology specialist - Billing Disposition and Condition Condition: STABLE Disposition: Home
== END 2018-08-02 13:03 | disposition home or self-care (01) ==
LOC: UCCORT 11:07
DX: N39.0 Urinary tract infection, site not specified (principal); F41.9 Anxiety disorder, unspecified; Z88.1 Allergy status to other antibiotic agents; Z88.0 Allergy status to penicillin; Z88.2 Allergy status to sulfonamides; Z79.899 Other long term (current) drug therapy
CPT/HCPCS: 81003; 87077; 87086; 93005; 99212; G0463